=== PATIENT | male | born 1945 | race Caucasian/White ===

== ENCOUNTER 2016-10-07 17:24 | Emergency (ER) | payer MEDICARE, BC ==
--- NOTE | 2016-10-07 17:43 | Emergency Department Record ---
History of Present Illness - General Chief Complaint: Hypertension Stated Complaint: HIGH BLOOD PRESSURE Time Seen by Provider: 10/07/16 17:39 Source: Patient Mode of Arrival: Ambulatory Limitations: No limitations - History of Present Illness Initial Comments: The patient is here in the ER due to taking his BP tonight and finding it elevated. He has been having a nagging FISHER for the last couple of days and did take Tylenol for it. 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 Today the CP is no different and he did have a normal stress test per Dr. Moreau 3 weeks ago. He denies any visual changes, AP , back pain, GOMEZ or SOB. The patient is very nervous about his BP and is very focused on the number. MD Complaint: Other Onset/Timin -: Days(s) Timing: Unsure History of Same: No History of Trauma: No Improves With: Nothing Worsens With: Nothing Associated Symptoms: Denies other symptoms - Hewitt Coma Scale Eye Response: (4) Open spontaneously Motor Response: (6) Obeys commands Verbal Response: (5) Oriented Magdiel Total: 15 - Related Data Home Medications Medication Instructions Recorded Confirmed Last Taken Albuterol Sulfate 0.083% [Neb] 3 ml NEB .EVERY 4-6 HOURS PRN 07/21/14 10/07/16 10/07/16 Albuterol Sulfate [Proair Hfa] 1 - 2 inh IH Q6HR 07/21/14 10/07/16 10/07/16 Atorvastatin Calcium [Lipitor] 10 mg PO QHS 07/21/14 10/07/16 10/07/16 Diltiazem HCl [Diltiazem 12Hr ER] 180 mg PO BID 07/21/14 10/07/16 10/07/16 Levothyroxine Sodium [Synthroid] 100 mcg PO DAILY 07/21/14 10/07/16 10/07/16 Mometasone/Formoterol [Dulera 100 2 inh IH BID 07/21/14 10/07/16 10/07/16 Mcg/5 Mcg Inhaler] Montelukast Sodium [Singulair] 10 mg PO QHS 07/21/14 10/07/16 10/07/16 Tiotropium [place] [Spiriva] 18 mcg IH DAILY 05/10/15 10/07/16 10/07/16 Fluticasone Propionate [Flonase] 2 puff INH BID 01/02/16 10/07/16 10/07/16 Previous Rx's Medication Instructions Recorded Ipratropium/Albuterol [Duoneb] 3 ml IH Q4H PRN 30 Days 11/14/14 Lorazepam [Ativan] 0.5 mg PO Q12HR #10 tablet 10/07/16 Allergies Allergy/AdvReac Type Severity Reaction Status Date / Time No Known Drug Allergies Allergy Verified 10/07/16 17:27 Travel Screening - Travel/Exposure Within Last 30 Days Have you traveled within the last 30 days?: No - Travel/Exposure Within Last Year Have you traveled outside the [place] in the last year?: No - Additonal Travel Details Have you been exposed to anyone with a communicable illness?: No - Travel Symptoms Symptom Screening: None Review of Systems Constitutional: Denies: Chills, Fever Eyes: Denies: Eye discharge ENT: Denies: Congestion Respiratory: Denies: Cough, Dyspnea Past Medical History - SOCIAL HISTORY Smoking Status: Former smoker Alcohol Use: Occassional Drug Use: None - RESPIRATORY Hx Respiratory Disorders: Yes Hx Asthma: Yes Hx Bronchitis: Yes Hx COPD: Yes - CARDIOVASCULAR Hx Cardio Disorders: Yes Hx Hypertension: Yes Comment:: quad. bypass - NEURO Hx Neuro Disorders: No - GI Hx GI Disorders: Yes Hx Reflux: Yes Comment:: AAA - Hx Genitourinary Disorders: No - ENDOCRINE Hx Endocrine Disorders: Yes Hx Thyroid Disease: Yes (Hypothyroid) - MUSCULOSKELETAL Hx Musculoskeletal Disorders: No - PSYCH Hx Psych Problems: No - HEMATOLOGY/ONCOLOGY Hx Hematology/Oncology Disorders: No Family Medical History Any Significant Family History?: Yes Hx Heart Disease: Father Physical Exam - General General Appearance: Alert, Oriented x3, No acute distress - Head Head exam: Atraumatic, Normocephalic, Normal inspection - Eye Eye exam: Normal appearance, PERRL - ENT ENT exam: Normal exam Throat exam: Normal inspection. negative: Tonsillar erythema, Tonsillar exudate - Neck Neck exam: Normal inspection, Full ROM. negative: Tenderness - Respiratory Respiratory exam: Normal lung sounds bilaterally. negative: Respiratory distress - Cardiovascular Cardiovascular Exam: Regular rate, Normal rhythm, Normal heart sounds - GI/Abdominal GI/Abdominal exam: Soft, Normal bowel sounds, Other (Obese.). negative: Tenderness - Extremities Extremities exam: Normal inspection, Full ROM, Normal capillary refill. negative: Tenderness - Neurological Neurological exam: Alert, Normal gait. negative: Abnormal gait, Motor sensory deficit Course Vital Signs 10/07/16 17:32 Temperature 97.6 F Pulse Rate 82 Respiratory 20 Rate Blood Pressure 177/102 Pulse Ox 95 - Reevaluation(s) Reevaluation #1: The patient is doing much better now. His BP is 133/97 and he feels less anxious and has no FISHER. 10/07/16 18:29 Reevaluation #2: The patient is doing a lot better. His BP is much improved and is 135/87. He feels well and is ready for home. 10/07/16 18:48 Medical Decision Making - Data Complexity MDM Data: Labs Ordered and/or Reviewed, EKG Ordered and/or Reviewed - Lab Data Result diagrams: 10/07/16 18:05 10/07/16 18:05 - EKG Data -: EKG Interpreted by Me EKG: No Acute Changes, Unchanged From Previous Disposition Disposition: Discharge Clinical Impression: Anxiety Disposition: Home, Self-Care Condition: (1) Good Instructions: Hypertension (ED) Additional Instructions: Please continue your regular medicines. Please use the Ativan if needed. Please see your PCP next week for recheck and monitor your BP daily. Return to the ER for any problems. Prescriptions: Lorazepam [Ativan] 0.5 mg PO Q12HR #10 tablet Forms: Patient Portal Access Time of Disposition: 18:50
[2016-10-07] MEDS ORDERED: LORAZEPAM 0.5 MG TABLET PO ONE (17:50)
[2016-10-07] MEDS ORDERED: IBUPROFEN 400 MG TABLET PO ONE (17:50)
[2016-10-07 18:14] LABS: BASO % 0.4 % (0-6); EOS % 1.6 % (0-6); GRAN % 77.4 % (47-80); HEMATOCRIT 46.1 % (42.0-52.0); HEMOGLOBIN 15.4 gm/dl (14.0-18.0); LYMPH % 14.9 % (16-45); MEAN CELL VOLUME 89.3 fl (81-97); MEAN CORPUSCULAR HEMOGLOBIN 29.8 pg (27-33); MEAN CORPUSCULAR HGB CONC 33.4 g/dl (32-36); MONO % 5.7 % (0-9); PLATELET COUNT 272 K/uL (130-400); RED BLOOD COUNT 5.16 M/uL (4.40-5.70); RED CELL DISTRIBUTION WIDTH 14.8 % (11.5-14.5); WHITE BLOOD COUNT W/O DIFF 10.1 K/uL (4.2-12.2)
[2016-10-07 18:23] LABS: ANION GAP 10.8 (7-16); BLOOD UREA NITROGEN 18 mg/dL (9-20); CARBON DIOXIDE 23.2 mmol/L (22-30); CREATINE PHOSPHOKINASE 80 U/L (55-170); EST GLOMERULAR FILTRATION RATE > 60 ml/min; GLUCOSE,RANDOM 139 mg/dL (70-110)
[2016-10-07 18:36] LABS: CKMB 1.5 ug/L (0-6)
[2016-10-07 18:39] LABS: TROPONIN I < 0.012 ng/mL (0.00-0.034)
== END 2016-10-07 19:00 | disposition home or self-care (01) ==
LOC: ER 17:24
DX: R51 Headache (principal); I10 Essential (primary) hypertension; F41.9 Anxiety disorder, unspecified; Z87.891 Personal history of nicotine dependence
CPT/HCPCS: 80048; 82550; 82553; 84484; 85025; 93005; 93010; 99284

== ENCOUNTER 2016-11-06 15:34 | Emergency (ER) | payer MEDICARE, BC ==
--- NOTE | 2016-11-06 16:13 | Emergency Department Record ---
History of Present Illness - General Chief complaint: Extremity Problem Stated complaint: R LEG INJURY Time Seen by Provider: 11/06/16 16:07 Source: Patient, RN notes reviewed Mode of Arrival: Ambulatory - History of Present Illness Initial comments: laceration of the right lower leg. from a stick. Onset/Timin -: Minutes(s) Location: Right, Lower Leg History of Same: No Severity scale (1-10): 2 Quality: Sharp Improves with: Nothing Worsens with: Palpation Associated Symptoms: Denies other symptoms - Related Data Home Medications Medication Instructions Recorded Confirmed Last Taken Albuterol Sulfate 0.083% [Neb] 3 ml NEB .EVERY 4-6 HOURS PRN 07/21/14 11/06/16 11/06/16 Albuterol Sulfate [Proair Hfa] 1 - 2 inh IH Q6HR 07/21/14 11/06/16 11/06/16 Atorvastatin Calcium [Lipitor] 10 mg PO QHS 07/21/14 11/06/16 11/06/16 Diltiazem HCl [Diltiazem 12Hr ER] 180 mg PO BID 07/21/14 11/06/16 11/06/16 Levothyroxine Sodium [Synthroid] 100 mcg PO DAILY 07/21/14 11/06/16 11/06/16 Mometasone/Formoterol [Dulera 100 2 inh IH BID 07/21/14 11/06/16 11/06/16 Mcg/5 Mcg Inhaler] Montelukast Sodium [Singulair] 10 mg PO QHS 07/21/14 11/06/16 11/06/16 Tiotropium [place] [Spiriva] 18 mcg IH DAILY 05/10/15 11/06/16 11/06/16 Fluticasone Propionate [Flonase] 2 puff INH BID 01/02/16 11/06/16 11/06/16 Aspirin [Adult Low Dose Aspirin EC] 81 mg PO DAILY 11/06/16 11/06/16 11/06/16 Metoprolol Tartrate [Lopressor] 50 mg PO DAILY 11/06/16 11/06/16 11/06/16 Multivit-Mins/Iron/Folic/Lycop 1 tab PO DAILY 11/06/16 11/06/16 11/06/16 [Centrum Ultra Men's Tablet] Previous Rx's Medication Instructions Recorded Ipratropium/Albuterol [Duoneb] 3 ml IH Q4H PRN 30 Days 11/14/14 Cephalexin [Keflex] 500 mg PO QID #40 cap 11/06/16 Allergies Allergy/AdvReac Type Severity Reaction Status Date / Time No Known Drug Allergies Allergy Verified 11/06/16 15:55 Travel Screening - Travel/Exposure Within Last 30 Days Have you traveled within the last 30 days?: No - Travel/Exposure Within Last Year Have you traveled outside the [place] in the last year?: No - Additonal Travel Details Have you been exposed to anyone with a communicable illness?: No - Travel Symptoms Symptom Screening: None Review of Systems Reviewed: No additional complaints except as noted below Constitutional: Reports: As per HPI. Denies: Chills, Fever, Malaise, Night sweats, Weakness, Weight change Eyes: Reports: As per HPI. Denies: Eye discharge, Eye pain, Photophobia, Vision change ENT: Reports: As per HPI. Denies: Congestion, Dental pain, Ear pain, Epistaxis , Hearing loss, Throat pain Respiratory: Reports: As per HPI. Denies: Cough, Dyspnea, Hemoptysis, Stridor, Wheezes Cardiovascular: Reports: As per HPI. Denies: Arrhythmia, Chest pain, Dyspnea on exertion, Edema, Murmurs, Orthopnea, Palpitations, Paroxysmal nocturnal dyspnea, Rheumatic Fever, Syncope Endocrine: Reports: As per HPI. Denies: Fatigue, Heat or cold intolerance, Polydipsia, Polyuria Gastrointestinal: Reports: As per HPI. Denies: Abdominal pain, Constipation, Diarrhea, Hematemesis, Hematochezia, Melena, Nausea, Vomiting Genitourinary: Reports: As per HPI. Denies: Dysuria, Frequency, Hematuria, Incontinence, Retention, Testicular pain, Testicular mass, Urgency Musculoskeletal: Reports: As per HPI. Denies: Arthralgia, Back pain, Gout, Joint swelling, Myalgia, Neck pain Skin: Reports: As per HPI. Denies: Bruising, Change in color, Change in hair/ nails, Lesions, Pruritus, Rash Neurological: Reports: As per HPI. Denies: Abnormal gait, Confusion, Headache, Numbness, Paresthesias, Seizure, Tingling, Tremors, Vertigo, Weakness Psychiatric: Reports: As per HPI. Denies: Anxiety, Auditory hallucinations, Depression, Homicidal thoughts, Suicidal thoughts, Visual hallucinations Hematological/Lymphatic: Reports: As per HPI. Denies: Anemia, Blood Clots, Easy bleeding, Easy bruising, Swollen glands Past Medical History - SOCIAL HISTORY Smoking Status: Former smoker Alcohol Use: Rare Drug Use: None - RESPIRATORY Hx Respiratory Disorders: Yes Hx Asthma: Yes Hx Bronchitis: Yes Hx COPD: Yes - CARDIOVASCULAR Hx Cardio Disorders: Yes Hx Hypertension: Yes Comment:: quad. bypass - NEURO Hx Neuro Disorders: No - GI Hx GI Disorders: Yes Hx Reflux: Yes Comment:: AAA - Hx Genitourinary Disorders: No - ENDOCRINE Hx Endocrine Disorders: Yes Hx Thyroid Disease: Yes (Hypothyroid) - MUSCULOSKELETAL Hx Musculoskeletal Disorders: No - PSYCH Hx Psych Problems: No - HEMATOLOGY/ONCOLOGY Hx Hematology/Oncology Disorders: No Family Medical History Any Significant Family History?: Yes Hx Heart Disease: Father Physical Exam - General General Appearance: Alert, Oriented x3, Cooperative, No acute distress - Head Head exam: Normal inspection - Eye Eye exam: Normal appearance, PERRL Pupils: Normal accommodation - ENT ENT exam: Normal exam, Mucous membranes moist, Normal external ear exam, Normal orophraynx, TM's normal bilaterally Ear exam: Normal external inspection. negative: External canal tenderness Nasal Exam: Normal inspection. negative: Discharge, Sinus tenderness Mouth exam: Normal external inspection, Tongue normal Teeth exam: Normal inspection. negative: Dental caries Throat exam: Normal inspection. negative: Tonsillar erythema, Tonsillar exudate - Neck Neck exam: Normal inspection, Full ROM. negative: Tenderness - Respiratory Respiratory exam: Normal lung sounds bilaterally. negative: Respiratory distress - Cardiovascular Cardiovascular Exam: Regular rate, Normal rhythm, Normal heart sounds - GI/Abdominal GI/Abdominal exam: Soft, Normal bowel sounds. negative: Tenderness - Rectal Rectal exam: Deferred - exam: Deferred - Extremities Extremities exam: Normal inspection, Full ROM, Normal capillary refill. negative: Tenderness - Back Back exam: Reports: Normal inspection, Full ROM. Denies: Muscle spasm, Rash noted, Tenderness - Neurological Neurological exam: Alert, Normal gait, Oriented X3, Reflexes normal - Psychiatric Psychiatric exam: Normal affect, Normal mood - Skin Skin exam: Other (laceration v flap ) Course Vital Signs 11/06/16 15:59 Temperature 97.6 F Pulse Rate 56 L Respiratory 20 Rate Blood Pressure 160/87 Pulse Ox 98 - Reevaluation(s) Reevaluation #1: !% lidocaine and cleaned it with shurclens and irrigated it with saline. No FB seen. laceration closed with 4.0 ethilon times 6 sutures and laceration is 5 cm long 11/06/16 16:55 11/06/16 16:56 Disposition Clinical Impression: Laceration of leg Qualifiers: Encounter type: initial encounter Laterality: right Qualified Code(s): S81.811A - Laceration without foreign body, right lower leg, initial encounter Disposition: Home, Self-Care Condition: (1) Good Instructions: Laceration (ED) Additional Instructions: laceration check in three days by family Dr. or ED because this wound has a high chance of infection. sutures out in [address] or ED Prescriptions: Cephalexin [Keflex] 500 mg PO QID #40 cap Forms: Patient Portal Access Time of Disposition: 17:00 Quality - Quality Measures Quality Measures: N/A - Blood Pressure Screening Blood Pressure Classification: Pre-Hypertensive BP Reading Systolic Measurement: 160 Diastolic Measurement: 87 Screening for High Blood Pressure: Not Eligible for Measure [G8784] Not Eligible Reason: Active Diagnosis of Hypertension
== END 2016-11-06 17:10 | disposition home or self-care (01) ==
LOC: ER 15:34
DX: S81.811A Laceration without foreign body, right lower leg, initial encounter (principal); W22.8XXA Striking against or struck by other objects, initial encounter; I10 Essential (primary) hypertension; Z87.891 Personal history of nicotine dependence
CPT/HCPCS: 12002; 99283

== ENCOUNTER 2016-11-17 11:39 | Emergency (ER) | payer MEDICARE, BC ==
--- NOTE | 2016-11-17 12:15 | Emergency Department Record ---
History of Present Illness - General Chief Complaint: Suture removal Stated Complaint: STITCH REMOVAL Time Seen by Provider: 11/17/16 12:10 Source: Patient Mode of arrival: Ambulatory Limitations: No limitations - History of Present Illness MD Complaint: Suture/staple removal Onset/Timin -: Days(s) Initial Visit For: Laceration Returns Today for: Staple/stitch removal Symptoms Since Prior Visit: No new symptoms Associated Symptoms: None - Related Data Home Medications Medication Instructions Recorded Confirmed Last Taken Albuterol Sulfate 0.083% [Neb] 3 ml NEB .EVERY 4-6 HOURS PRN 07/21/14 11/17/16 11/16/16 Albuterol Sulfate [Proair Hfa] 1 - 2 inh IH Q6HR 07/21/14 11/17/16 11/16/16 Atorvastatin Calcium [Lipitor] 10 mg PO QHS 07/21/14 11/17/16 11/16/16 Diltiazem HCl [Diltiazem 12Hr ER] 180 mg PO BID 07/21/14 11/17/16 11/17/16 Levothyroxine Sodium [Synthroid] 100 mcg PO DAILY 07/21/14 11/17/16 11/17/16 Mometasone/Formoterol [Dulera 100 2 inh IH BID 07/21/14 11/17/16 11/17/16 Mcg/5 Mcg Inhaler] Montelukast Sodium [Singulair] 10 mg PO QHS 07/21/14 11/17/16 11/16/16 Tiotropium [place] [Spiriva] 18 mcg IH DAILY 05/10/15 11/17/16 11/16/16 Fluticasone Propionate [Flonase] 2 puff INH BID 01/02/16 11/17/16 11/16/16 Aspirin [Adult Low Dose Aspirin EC] 81 mg PO DAILY 11/06/16 11/17/16 11/16/16 Metoprolol Tartrate [Lopressor] 50 mg PO DAILY 11/06/16 11/17/16 11/17/16 Multivit-Mins/Iron/Folic/Lycop 1 tab PO DAILY 11/06/16 11/17/16 11/17/16 [Centrum Ultra Men's Tablet] Lisinopril [Zestril] 5 mg PO DAILY 11/17/16 11/17/16 11/16/16 Previous Rx's Medication Instructions Recorded Ipratropium/Albuterol [Duoneb] 3 ml IH Q4H PRN 30 Days 11/14/14 Cephalexin [Keflex] 500 mg PO QID #40 cap 11/06/16 Allergies Allergy/AdvReac Type Severity Reaction Status Date / Time No Known Drug Allergies Allergy Verified 11/06/16 15:55 Review of Systems Reviewed: No additional complaints except as noted below Constitutional: Reports: As per HPI. Denies: Chills, Fever, Malaise, Night sweats, Weakness, Weight change Eyes: Reports: As per HPI. Denies: Eye discharge, Eye pain, Photophobia, Vision change ENT: Reports: As per HPI. Denies: Congestion, Dental pain, Ear pain, Epistaxis , Hearing loss, Throat pain Respiratory: Reports: As per HPI. Denies: Cough, Dyspnea, Hemoptysis, Stridor, Wheezes Cardiovascular: Reports: As per HPI. Denies: Arrhythmia, Chest pain, Dyspnea on exertion, Edema, Murmurs, Orthopnea, Palpitations, Paroxysmal nocturnal dyspnea, Rheumatic Fever, Syncope Endocrine: Reports: As per HPI. Denies: Fatigue, Heat or cold intolerance, Polydipsia, Polyuria Gastrointestinal: Reports: As per HPI. Denies: Abdominal pain, Constipation, Diarrhea, Hematemesis, Hematochezia, Melena, Nausea, Vomiting Genitourinary: Reports: As per HPI. Denies: Dysuria, Frequency, Hematuria, Incontinence, Retention, Testicular pain, Testicular mass, Urgency Musculoskeletal: Reports: As per HPI. Denies: Arthralgia, Back pain, Gout, Joint swelling, Myalgia, Neck pain Skin: Reports: As per HPI. Denies: Bruising, Change in color, Change in hair/ nails, Lesions, Pruritus, Rash Neurological: Reports: As per HPI. Denies: Abnormal gait, Confusion, Headache, Numbness, Paresthesias, Seizure, Tingling, Tremors, Vertigo, Weakness Psychiatric: Reports: As per HPI. Denies: Anxiety, Auditory hallucinations, Depression, Homicidal thoughts, Suicidal thoughts, Visual hallucinations Hematological/Lymphatic: Reports: As per HPI. Denies: Anemia, Blood Clots, Easy bleeding, Easy bruising, Swollen glands Past Medical History - SOCIAL HISTORY Smoking Status: Former smoker Drug Use: None - RESPIRATORY Hx Respiratory Disorders: Yes Hx Asthma: Yes Hx Bronchitis: Yes Hx COPD: Yes - CARDIOVASCULAR Hx Cardio Disorders: Yes Hx Hypertension: Yes Comment:: quad. bypass - NEURO Hx Neuro Disorders: No - GI Hx GI Disorders: Yes Hx Reflux: Yes Comment:: AAA - Hx Genitourinary Disorders: No - ENDOCRINE Hx Endocrine Disorders: Yes Hx Thyroid Disease: Yes (Hypothyroid) - MUSCULOSKELETAL Hx Musculoskeletal Disorders: No - PSYCH Hx Psych Problems: No - HEMATOLOGY/ONCOLOGY Hx Hematology/Oncology Disorders: No Family Medical History Hx Heart Disease: Father Physical Exam - General General Appearance: Alert, Oriented x3, Cooperative, Mild distress - Head Head exam: Normal inspection - Eye Eye exam: Normal appearance, PERRL, EOMI Pupils: Normal accommodation - ENT ENT exam: Normal exam, Mucous membranes moist, Normal external ear exam, Normal orophraynx Ear exam: Normal external inspection. negative: External canal tenderness Nasal Exam: Normal inspection. negative: Discharge, Sinus tenderness Mouth exam: Normal external inspection, Tongue normal Teeth exam: Normal inspection. negative: Dental caries Throat exam: Normal inspection. negative: Tonsillar erythema, Tonsillar exudate - Neck Neck exam: Normal inspection, Full ROM. negative: Tenderness - Respiratory Respiratory exam: Normal lung sounds bilaterally. negative: Respiratory distress - Cardiovascular Cardiovascular Exam: Regular rate, Normal rhythm, Normal heart sounds - GI/Abdominal GI/Abdominal exam: Soft, Normal bowel sounds. negative: Tenderness - Rectal Rectal exam: Deferred - exam: Deferred - Extremities Extremities exam: Normal inspection, Full ROM, Normal capillary refill. negative: Tenderness - Back Back exam: Reports: Normal inspection, Full ROM. Denies: Muscle spasm, Rash noted, Tenderness - Neurological Neurological exam: Alert, CN II-XII intact, Normal gait, Oriented X3 - Psychiatric Psychiatric exam: Normal affect, Normal mood - Skin Skin exam: Dry, Intact, Normal color, Warm Type of lesion: Laceration Distribution of rash: RLE Disposition Disposition: Discharge Clinical Impression: Visit for suture removal Disposition: Home, Self-Care Condition: (1) Good Instructions: Stitches Removal (ED) Additional Instructions: follow up with family doctor. return sooner if worse Forms: Patient Portal Access Quality - Quality Measures Quality Measures: N/A - Blood Pressure Screening Blood Pressure Classification: Pre-Hypertensive BP Reading Systolic Measurement: 131 Diastolic Measurement: 71 Screening for High Blood Pressure: < Normal BP, F/U Not Required > [G8783] Normal BP Follow-up Interventions: No follow-up required
== END 2016-11-17 13:20 | disposition home or self-care (01) ==
LOC: ER 11:39
DX: Z48.02 Encounter for removal of sutures (principal)

== ENCOUNTER 2017-01-23 06:22 | Emergency (ER) | payer MEDICARE, BC ==
--- NOTE | 2017-01-23 06:47 | Emergency Department Record ---
History of Present Illness - General Source: Patient Mode of Arrival: Ambulatory Limitations: No limitations - History of Present Illness Initial comments: 71 yo male presents with left side pain. The onset was on Sunday. The onset was gradual over the left flank. The pain improved by Sunday but did not resolve. The pain over the last day has increased again. No fevers or chills. No rash over the left side. No nausea, vomiting or diarrhea. No changes in bowel or bladder function. No hemturia. He denies any history of renal stones. PCP Segun [place]. He has a history of CAD with CABG and history of AAA. MD Complaint: Other (Left flank pain) Onset/Timin -: Days(s) Location: Left flank, Left inguinal region Radiation: LLQ Severity: Moderate Quality: Stabbing Consistency: Constant Improves with: None Worsens with: None Other Reports: Denies other symptoms - Related Data Sexually active: No <SANDRO DOUGLASS - Last Filed: 01/23/17 07:03> <Jocy Lindsay - Last Filed: 01/23/17 09:05> - General Chief complaint: Male Urogenital Problem Stated complaint: UTI Time Seen by Provider: 01/23/17 06:35 - Related Data Previous Rx's Medication Instructions Recorded Hydrocodone/Acetaminophen [[place] 1 each PO Q6HR #14 tablet 01/23/17 5-325 Tablet] Allergies Allergy/AdvReac Type Severity Reaction Status Date / Time No Known Drug Allergies Allergy Verified 11/06/16 15:55 Travel Screening - Travel/Exposure Within Last 30 Days Have you traveled within the last 30 days?: No - Travel Symptoms Symptom Screening: None <SANDRO DOUGLASS - Last Filed: 01/23/17 07:03> Review of Systems Constitutional: Denies: Chills, Fever, Malaise, Weakness Eyes: Denies: Eye discharge ENT: Denies: Congestion, Throat pain Respiratory: Denies: Cough, Dyspnea, Hemoptysis, Stridor, Wheezes Cardiovascular: Denies: Chest pain, Syncope Endocrine: Denies: Fatigue Gastrointestinal: Reports: As per HPI, Abdominal pain. Denies: Diarrhea, Nausea , Vomiting Genitourinary: Reports: Frequency. Denies: Dysuria, Hematuria, Incontinence, Retention, Urgency Musculoskeletal: Reports: As per HPI, Back pain. Denies: Arthralgia Skin: Denies: Bruising, Change in color, Rash Neurological: Denies: Headache, Numbness, Weakness Psychiatric: Denies: Anxiety Hematological/Lymphatic: Denies: Blood Clots, Easy bleeding, Easy bruising, Swollen glands <SANDRO DOUGLASS - Last Filed: 01/23/17 07:03> Past Medical History - SOCIAL HISTORY Smoking Status: Former smoker Alcohol Use: None Drug Use: None - RESPIRATORY Hx Respiratory Disorders: Yes Hx Asthma: Yes Hx Bronchitis: Yes Hx COPD: Yes - CARDIOVASCULAR Hx Cardio Disorders: Yes Hx Hypertension: Yes Comment:: quad. bypass - NEURO Hx Neuro Disorders: No - GI Hx GI Disorders: Yes Hx Reflux: Yes Comment:: AAA - Hx Genitourinary Disorders: No - ENDOCRINE Hx Endocrine Disorders: Yes Hx Thyroid Disease: Yes (Hypothyroid) - MUSCULOSKELETAL Hx Musculoskeletal Disorders: No - PSYCH Hx Psych Problems: No - HEMATOLOGY/ONCOLOGY Hx Hematology/Oncology Disorders: No <SANDRO DOUGLASS - Last Filed: 01/23/17 07:03> Family Medical History Any Significant Family History?: Yes Hx Heart Disease: Father <SANDRO DOUGLASS - Last Filed: 01/23/17 07:03> Physical Exam - General General Appearance: Alert, Oriented x3, Cooperative, No acute distress Limitations: No limitations - Head Head exam: Atraumatic, Normocephalic, Normal inspection - Eye Eye exam: Normal appearance. negative: Conjunctival injection - ENT ENT exam: Normal exam, Mucous membranes moist Ear exam: Normal external inspection Nasal Exam: Normal inspection - Neck Neck exam: Normal inspection - Respiratory Respiratory exam: Normal lung sounds bilaterally. negative: Respiratory distress - Cardiovascular Cardiovascular Exam: Regular rate, Normal rhythm, Normal heart sounds - GI/Abdominal GI/Abdominal exam: Soft. negative: Distended, Guarding, Rebound, Rigid, Tenderness - Rectal Rectal exam: Deferred - exam: Deferred - Extremities Extremities exam: Normal inspection, Full ROM, Normal capillary refill. negative: Pedal edema, Tenderness - Back Back exam: Reports: Normal inspection, CVA tenderness (L) (mild), Full ROM. Denies: CVA tenderness (R), Rash noted - Neurological Neurological exam: Alert, Oriented X3 - Psychiatric Psychiatric exam: Normal affect, Normal mood - Skin Skin exam: Dry, Intact, Normal color, Warm. negative: Rash <SANDRO DOUGLASS - Last Filed: 01/23/17 07:03> Course Vital Signs 01/23/17 06:28 Temperature 97.7 F Pulse Rate [ 69 Pulse Ox Probe] Respiratory 20 Rate Blood Pressure 190/110 [Left Arm] Pulse Ox 94 L - Reevaluation(s) Reevaluation #1: 01/23/17 07:04 The case was signed out to Dr Lindsay Please refer to her her documentation for medical decision making, labs and disposition <SANDRO DOUGLASS - Last Filed: 01/23/17 07:03> Vital Signs 01/23/17 01/23/17 06:28 08:11 Temperature 97.7 F Pulse Rate [ 69 63 Pulse Ox Probe] Respiratory 20 16 Rate Blood Pressure 190/110 145/90 [Left Arm] Pulse Ox 94 L 94 L <Jocy Lindsay - Last Filed: 01/23/17 09:05> Medical Decision Making - Lab Data Result diagrams: 01/23/17 06:55 01/23/17 06:55 <SANDRO DOUGLASS - Last Filed: 01/23/17 07:03> - Lab Data Result diagrams: 01/23/17 06:55 01/23/17 06:55 Lab Results 01/23/17 01/23/17 01/23/17 Range/Units 06:55 06:55 07:45 WBC 13.7 H (4.2-12.2) K/uL RBC 5.22 (4.40-5.70) M/uL Hgb 15.9 (14.0-18.0) gm/dl Hct 47.4 (42.0-52.0) % MCV 90.8 (81-97) fl MCH 30.5 (27-33) pg MCHC 33.5 (32-36) g/dl RDW 14.0 (11.5-14.5) % Plt Count 250 (130-400) K/uL MPV 10.3 (7.4-10.4) fl Neutrophils % 86.0 H (47-80) % Band Neutrophils % 2.0 (0-5) % Eosinophils % Not Reportable Basophils % Not Reportable Lymphocytes 8.0 L (16-45) % Monocytes 4.0 (0-9) % Platelet Estimate Normal (NORMAL) RBC Morphology Normal Sodium 134 L (136-145) mmol/L Potassium 4.3 (3.4-4.5) mmol/L Chloride 96 L (98-107) mmol/L Carbon Dioxide 25.0 (22-29) mmol/L Anion Gap 13.0 (7-16) BUN 22 (8-23) mg/dL Creatinine 1.7 H (0.7-1.2) mg/dL Estimated GFR 42 mL/min Random Glucose 121 H (74-109) mg/dL Calcium 9.3 (8.8-10.2) mg/dL Urine Color Yellow Urine Appearance Clear Urine pH 6.0 (5.0-8.0) Ur Specific [place] 1.020 (1.002-1.030) Urine Protein Negative (NEGATIVE) Urine Glucose (UA) Negative (NEGATIVE) Urine Ketones Negative (NEGATIVE) Urine Blood Small H (NEGATIVE) Urine Nitrite Negative (NEGATIVE) Urine Bilirubin Negative (NEGATIVE) Urine Urobilinogen 0.2 (0.20 - 1.00) E.U./dL Ur Leukocyte Esterase Negative (NEGATIVE) Urine RBC 10 - 15 (NONE SEEN) Urine WBC 0 - 2 (0-2/hpf) Ur Epithelial Cells 0 - 2 (FEW) Urine Bacteria None seen <Jocy Lindsay - Last Filed: 01/23/17 09:05> Disposition <SANDRO DOUGLASS - Last Filed: 01/23/17 07:03> Disposition: Discharge <Jocy Lindsay - Last Filed: 01/23/17 09:05> Clinical Impression: Renal lithiasis, AAA (abdominal aortic aneurysm) without rupture Hydronephrosis Qualifiers: Hydronephrosis type: with ureteral calculous obstruction Qualified Code(s): N13.2 - Hydronephrosis with renal and ureteral calculous obstruction Disposition: Home, Self-Care Condition: (1) Good Instructions: Kidney Stones (ED) Additional Instructions: follow up with family doctor regarding aortic aneurysm and with dr thomas regarding kidney stone. return sooner if worse. push fluids Prescriptions: Hydrocodone/Acetaminophen [[place] 5-325 Tablet] 1 each PO Q6HR #14 tablet Referrals: MARGIE AYOUB M.D. [MEDICAL DOCTOR] - [facility] [place] [facility] [Provider Group] Forms: Patient Portal Access Quality - Blood Pressure Screening Does Patient Have Any of the Following: No Blood Pressure Classification: Hypertensive Reading Systolic Measurement: 190 Diastolic Measurement: 110 <SANDRO DOUGLASS - Last Filed: 01/23/17 07:03> - Quality Measures Quality Measures: N/A - Blood Pressure Screening Does Patient Have Any of the Following: No Blood Pressure Classification: Hypertensive Reading Systolic Measurement: 145 Diastolic Measurement: 90 Screening for High Blood Pressure: < Pre-Hypertensive BP, F/U Documented > [ G8950] Pre-Hypertensive Follow-up Interventions: Follow-up with rescreen every year. <Jocy Lindsay - Last Filed: 01/23/17 09:05>
[2017-01-23 07:01] LABS: HEMATOCRIT 47.4 % (42.0-52.0); HEMOGLOBIN 15.9 gm/dl (14.0-18.0); MEAN CELL VOLUME 90.8 fl (81-97); MEAN CORPUSCULAR HEMOGLOBIN 30.5 pg (27-33); MEAN CORPUSCULAR HGB CONC 33.5 g/dl (32-36); MEAN PLATELET VOLUME 10.3 fl (7.4-10.4); PLATELET COUNT 250 K/uL (130-400); RED BLOOD COUNT 5.22 M/uL (4.40-5.70); WHITE BLOOD COUNT W/O DIFF 13.7 K/uL (4.2-12.2)
[2017-01-23] MEDS: MORPHINE SULFATE 5 MG/ML PFS IVP ONE (07:03)
[2017-01-23] MEDS: SODIUM CHLORIDE 0.9% 500 ML IV ONE (07:05)
[2017-01-23 07:11] LABS: PLATELET ESTIMATE NORMAL (NORMAL)
[2017-01-23 07:16] LABS: CREATININE 1.7 mg/dL (0.7-1.2)
[2017-01-23 07:55] LABS: URINE APPEARANCE CLEAR; URINE BILIRUBIN NEGATIVE (NEGATIVE); URINE BLOOD SMALL (NEGATIVE); URINE COLOR YELLOW; URINE GLUCOSE (UA) NEGATIVE (NEGATIVE); URINE KETONE NEGATIVE (NEGATIVE); URINE LEUKOCYTE ESTERASE NEGATIVE (NEGATIVE); URINE NITRITE NEGATIVE (NEGATIVE); URINE PROTEIN NEGATIVE (NEGATIVE); URINE UROBILINOGEN 0.2 E.U./dL (0.20 - 1.00)
[2017-01-23 08:07] LABS: URINE BACTERIA NONE SEEN; URINE EPITHELIAL CELLS 0 - 2 (FEW); URINE WBC 0 - 2 (0-2/hpf)
--- NOTE | 2017-01-23 09:23 | Emergency Department Record ---
History of Present Illness - General Chief complaint: Male Urogenital Problem Stated complaint: UTI Time Seen by Provider: 01/23/17 06:35 Source: Patient Mode of Arrival: Ambulatory Limitations: No limitations - History of Present Illness Onset/Timin -: Days(s) Location: Left flank, Left inguinal region Radiation: LLQ Severity: Moderate Quality: Stabbing Consistency: Constant Improves with: None Worsens with: None Other Reports: Denies other symptoms - Related Data Sexually active: No Previous Rx's Medication Instructions Recorded Hydrocodone/Acetaminophen [[place] 1 each PO Q6HR #14 tablet 01/23/17 5-325 Tablet] Tamsulosin HCl [Flomax] 0.4 mg PO DAILY #7 cap.er.24h 01/23/17 Allergies Allergy/AdvReac Type Severity Reaction Status Date / Time No Known Drug Allergies Allergy Verified 11/06/16 15:55 Travel Screening - Travel/Exposure Within Last 30 Days Have you traveled within the last 30 days?: No - Travel Symptoms Symptom Screening: None Review of Systems Constitutional: Denies: Chills, Fever, Malaise, Weakness Eyes: Denies: Eye discharge ENT: Denies: Congestion, Throat pain Respiratory: Denies: Cough, Dyspnea, Hemoptysis, Stridor, Wheezes Cardiovascular: Denies: Chest pain, Syncope Endocrine: Denies: Fatigue Gastrointestinal: Reports: As per HPI, Abdominal pain. Denies: Diarrhea, Nausea , Vomiting Genitourinary: Reports: Frequency. Denies: Dysuria, Hematuria, Incontinence, Retention, Urgency Musculoskeletal: Reports: As per HPI, Back pain. Denies: Arthralgia Skin: Denies: Bruising, Change in color, Rash Neurological: Denies: Headache, Numbness, Weakness Psychiatric: Denies: Anxiety Hematological/Lymphatic: Denies: Blood Clots, Easy bleeding, Easy bruising, Swollen glands Past Medical History - SOCIAL HISTORY Smoking Status: Former smoker Alcohol Use: None Drug Use: None - RESPIRATORY Hx Respiratory Disorders: Yes Hx Asthma: Yes Hx Bronchitis: Yes Hx COPD: Yes - CARDIOVASCULAR Hx Cardio Disorders: Yes Hx Hypertension: Yes Comment:: quad. bypass - NEURO Hx Neuro Disorders: No - GI Hx GI Disorders: Yes Hx Reflux: Yes Comment:: AAA - Hx Genitourinary Disorders: No - ENDOCRINE Hx Endocrine Disorders: Yes Hx Thyroid Disease: Yes (Hypothyroid) - MUSCULOSKELETAL Hx Musculoskeletal Disorders: No - PSYCH Hx Psych Problems: No - HEMATOLOGY/ONCOLOGY Hx Hematology/Oncology Disorders: No Family Medical History Any Significant Family History?: Yes Hx Heart Disease: Father Physical Exam - General Limitations: No limitations Course Vital Signs 01/23/17 01/23/17 01/23/17 06:28 08:11 09:20 Temperature 97.7 F Pulse Rate 62 Pulse Rate [ 69 63 Pulse Ox Probe] Respiratory 20 16 18 Rate Blood Pressure 148/91 Blood Pressure 190/110 145/90 [Left Arm] Pulse Ox 94 L 94 L 95 Medical Decision Making - Lab Data Result diagrams: 01/23/17 06:55 01/23/17 06:55 Lab Results 01/23/17 01/23/17 01/23/17 Range/Units 06:55 06:55 07:45 WBC 13.7 H (4.2-12.2) K/uL RBC 5.22 (4.40-5.70) M/uL Hgb 15.9 (14.0-18.0) gm/dl Hct 47.4 (42.0-52.0) % MCV 90.8 (81-97) fl MCH 30.5 (27-33) pg MCHC 33.5 (32-36) g/dl RDW 14.0 (11.5-14.5) % Plt Count 250 (130-400) K/uL MPV 10.3 (7.4-10.4) fl Neutrophils % 86.0 H (47-80) % Band Neutrophils % 2.0 (0-5) % Eosinophils % Not Reportable Basophils % Not Reportable Lymphocytes 8.0 L (16-45) % Monocytes 4.0 (0-9) % Platelet Estimate Normal (NORMAL) RBC Morphology Normal Sodium 134 L (136-145) mmol/L Potassium 4.3 (3.4-4.5) mmol/L Chloride 96 L (98-107) mmol/L Carbon Dioxide 25.0 (22-29) mmol/L Anion Gap 13.0 (7-16) BUN 22 (8-23) mg/dL Creatinine 1.7 H (0.7-1.2) mg/dL Estimated GFR 42 mL/min Random Glucose 121 H (74-109) mg/dL Calcium 9.3 (8.8-10.2) mg/dL Urine Color Yellow Urine Appearance Clear Urine pH 6.0 (5.0-8.0) Ur Specific [place] 1.020 (1.002-1.030) Urine Protein Negative (NEGATIVE) Urine Glucose (UA) Negative (NEGATIVE) Urine Ketones Negative (NEGATIVE) Urine Blood Small H (NEGATIVE) Urine Nitrite Negative (NEGATIVE) Urine Bilirubin Negative (NEGATIVE) Urine Urobilinogen 0.2 (0.20 - 1.00) E.U./dL Ur Leukocyte Esterase Negative (NEGATIVE) Urine RBC 10 - 15 (NONE SEEN) Urine WBC 0 - 2 (0-2/hpf) Ur Epithelial Cells 0 - 2 (FEW) Urine Bacteria None seen Disposition Clinical Impression: Renal lithiasis, AAA (abdominal aortic aneurysm) without rupture Hydronephrosis Qualifiers: Hydronephrosis type: with ureteral calculous obstruction Qualified Code(s): N13.2 - Hydronephrosis with renal and ureteral calculous obstruction Disposition: Home, Self-Care Condition: (1) Good Instructions: Kidney Stones (ED) Additional Instructions: follow up with family doctor regarding aortic aneurysm and with dr thomas regarding kidney stone. return sooner if worse. push fluids Prescriptions: Hydrocodone/Acetaminophen [[place] 5-325 Tablet] 1 each PO Q6HR #14 tablet Tamsulosin HCl [Flomax] 0.4 mg PO DAILY #7 cap.er.24h Referrals: [facility] [Provider Group] MARGIE AYOUB M.D. [MEDICAL DOCTOR] - Forms: Patient Portal Access Quality - Quality Measures Quality Measures: N/A - Blood Pressure Screening Does Patient Have Any of the Following: No Blood Pressure Classification: Hypertensive Reading Systolic Measurement: 148 Diastolic Measurement: 91 Screening for High Blood Pressure: < First Hypertensive BP, F/U Documented > [ G8950] First Hypertensive Follow-up Interventions: Follow-up with rescreen GT 1 day and LT 4 weeks.
--- NOTE | 2017-01-24 12:39 | CT SCAN REPORT ---
EXAM: CT OF THE ABDOMEN AND PELVIS HISTORY: LEFT FLANK PAIN WITH DYSURIA FOR TWO DAYS. PRIOR ABDOMINAL AORTIC ANEURYSM SURGERY. TECHNIQUE: Axial CT scan of the abdomen and pelvis was performed without oral or IV contrast. Comparison: No prior CT abdomen and pelvis with which to compare. FINDINGS: There are bilateral intrarenal calcifications consistent with small bilateral currently nonobstructing intrarenal calculi. No hydronephrosis or hydroureter on the right, however, on the left there is mild hydronephrosis and mild dilatation of the upper left ureter leading to a small calcification in the left ureter at the approximate L4 level consistent with a mid ureteral calculus causing a component of obstruction on the left. This small ureteral calculus on the left measures about 3.3 mm in diameter and about 4 mm in length. Distal to this the left ureter is nondilated with no additional more distal left ureteral calculus seen and no bladder calculus evident. There is probably a small bladder diverticulum posteriorly which contain a small calcification as well. The prostate is mildly enlarged measuring about 4.8 cm in transverse x 4.3 cm in AP diameter and contains some calcification. No calcified gallstones are seen within the gallbladder. Evaluation of the bowel and viscera are very limited without oral or IV contrast. Given this limitation, no definite focal hepatic mass evident. There is some diffuse fatty infiltration of the liver. No definite splenic, adrenal, or pancreatic mass evident. There are probably a couple small left renal cysts although incompletely evaluated on this noncontrast CT. At least one small left renal cyst was noted on a prior abdomen ultrasound of 08/22/13 as well. This probably corresponds to the largest of the three small low attenuation foci in the left kidney seen today. These could be further evaluated with a follow-up MRI of the abdomen if not contraindicated. Small hiatal hernia. Infrarenal abdominal aortic aneurysm measuring about 4.7 cm in AP x 4.2 cm in transverse diameters. Mild diverticulosis sigmoid colon, but no diverticulitis evident. The appendix is visualized and appears negative. Small periumbilical anterior abdominal wall hernia containing adipose tissue, but no bowel. No free intraperitoneal air or free intraperitoneal fluid evident. Prominent facet joint arthropathy in the lower lumbar spine and prominent spurring in the lower thoracic spine. IMPRESSION: 1. APPEARANCE CONSISTENT WITH A SMALL LEFT MID URETERAL CALCULUS CAUSING A COMPONENT OF OBSTRUCTION ON THE LEFT. 2. THERE ARE ADDITIONAL BILATERAL CURRENTLY NONOBSTRUCTING INTRARENAL CALCULI. THERE IS PROBABLY A SMALL BLADDER DIVERTICULUM WHICH MAY CONTAIN A SMALL BLADDER CALCULUS WELL. 3. MILDLY ENLARGED PROSTATE. 4. DIFFUSE FATTY INFILTRATION OF THE LIVER. 5. SMALL HIATAL HERNIA AND ALSO A SMALL PERIUMBILICAL ANTERIOR ABDOMINAL WALL HERNIA WHICH CONTAINS ADIPOSE TISSUE, BUT NO BOWEL. 6. INFRARENAL ABDOMINAL AORTIC ANEURYSM MEASURING APPROXIMATELY 4.7 X 4.2 CM IN DIAMETER. 7. MULTIPLE SMALL LEFT RENAL MASSES ARE PRESUMABLY ALL CYSTS ALTHOUGH INCOMPLETELY EVALUATED ON THIS NONCONTRAST CT. 8. DEGENERATIVE CHANGE IN THE SPINE. 9. SIGMOID DIVERTICULOSIS, BUT NO DIVERTICULITIS EVIDENT. JOB NUMBER: [id number] [facility]
== END 2017-01-23 09:21 | disposition home or self-care (01) ==
LOC: ER 06:22
DX: N13.2 Hydronephrosis with renal and ureteral calculous obstruction (principal); I71.4 Abdominal aortic aneurysm, without rupture; I25.10 Atherosclerotic heart disease of native coronary artery without angina pectoris; I10 Essential (primary) hypertension; Z95.1 Presence of aortocoronary bypass graft; Z87.891 Personal history of nicotine dependence; J44.9 Chronic obstructive pulmonary disease, unspecified
CPT/HCPCS: 99284 ×2; 99285 ×2; 96374; 80048; 81001; 85027; 74176; J2270

== ENCOUNTER 2017-01-23 21:22 | Emergency (ER) | payer MEDICARE, BC ==
[2017-01-23 21:52] LABS: URINE APPEARANCE CLEAR; URINE BILIRUBIN NEGATIVE (NEGATIVE); URINE BLOOD LARGE (NEGATIVE); URINE COLOR YELLOW; URINE GLUCOSE (UA) NEGATIVE (NEGATIVE); URINE KETONE NEGATIVE (NEGATIVE); URINE LEUKOCYTE ESTERASE NEGATIVE (NEGATIVE); URINE NITRITE NEGATIVE (NEGATIVE); URINE PROTEIN TRACE (NEGATIVE); URINE UROBILINOGEN 0.2 E.U./dL (0.20 - 1.00)
[2017-01-23 22:01] LABS: URINE BACTERIA NONE SEEN; URINE EPITHELIAL CELLS NONE SEEN (FEW); URINE RBC 16 - 25 (NONE SEEN); URINE WBC NONE SEEN (0-2/hpf)
--- NOTE | 2017-01-23 22:04 | Emergency Department Record ---
History of Present Illness - General Chief complaint: Male Urogenital Problem Stated complaint: KIDNEY STONE PAIN, ASTHEMA Time Seen by Provider: 01/23/17 21:25 Source: Patient Mode of Arrival: Ambulatory Limitations: No limitations - History of Present Illness Initial comments: 71 yo male returns to ED for worsening left flank pain symptoms after being diagnosed with a 4x3 mm kidney stone this morning. Patient reports that he has been taking [place] as directed which does help somewhat, however his pain symptoms have continued to worsen despite the analgesic tonight. Patient denies fevers, chills, or urinary symptoms throughout the day. Onset/Timin -: Days(s) Location: Left flank Radiation: L flank Severity: Moderate Quality: Stabbing Consistency: Intermittent Improves with: Other Worsens with: Movement New medication - Related Data Sexually active: No Previous Rx's Medication Instructions Recorded Hydrocodone/Acetaminophen [[place] 1 each PO Q6HR #14 tablet 01/23/17 5-325 Tablet] Tamsulosin HCl [Flomax] 0.4 mg PO DAILY #7 cap.er.24h 01/23/17 Allergies Allergy/AdvReac Type Severity Reaction Status Date / Time No Known Drug Allergies Allergy Verified 11/06/16 15:55 Travel Screening - Travel/Exposure Within Last 30 Days Have you traveled within the last 30 days?: No - Travel Symptoms Symptom Screening: None Review of Systems Constitutional: Denies: Chills, Fever, Malaise, Night sweats Eyes: Denies: Eye discharge, Eye pain ENT: Denies: Congestion, Ear pain, Epistaxis Respiratory: Denies: Cough, Dyspnea Cardiovascular: Denies: Chest pain, Dyspnea on exertion Endocrine: Denies: Fatigue, Heat or cold intolerance Gastrointestinal: Denies: Abdominal pain, Constipation, Nausea, Vomiting Genitourinary: Denies: Incontinence, Retention Musculoskeletal: Reports: Back pain (left sided flank pain). Denies: Arthralgia Skin: Denies: Bruising, Change in color Neurological: Denies: Abnormal gait, Confusion, Headache, Seizure Psychiatric: Denies: Anxiety Hematological/Lymphatic: Denies: Anemia, Blood Clots Past Medical History - SOCIAL HISTORY Smoking Status: Former smoker Alcohol Use: None Drug Use: None - RESPIRATORY Hx Respiratory Disorders: Yes Hx Asthma: Yes Hx Bronchitis: Yes Hx COPD: Yes - CARDIOVASCULAR Hx Cardio Disorders: Yes Hx Hypertension: Yes Comment:: quad. bypass - NEURO Hx Neuro Disorders: No - GI Hx GI Disorders: Yes Hx Reflux: Yes Comment:: AAA - Hx Genitourinary Disorders: No - ENDOCRINE Hx Endocrine Disorders: Yes Hx Thyroid Disease: Yes (Hypothyroid) - MUSCULOSKELETAL Hx Musculoskeletal Disorders: No - PSYCH Hx Psych Problems: No - HEMATOLOGY/ONCOLOGY Hx Hematology/Oncology Disorders: No Family Medical History Any Significant Family History?: Yes Hx Heart Disease: Father Physical Exam - General General Appearance: Alert, Oriented x3, Cooperative, Moderate distress Limitations: No limitations - Head Head exam: Atraumatic, Normocephalic, Normal inspection Head exam detail: negative: Abrasion, Contusion, Clark's sign, General tenderness, Hematoma, Laceration - Eye Eye exam: Other (pinpoint pupils on examination). negative: Conjunctival injection, Periorbital swelling, Periorbital tenderness, Scleral icterus - ENT Ear exam: negative: Auricular hematoma, Auricular trauma Nasal Exam: negative: Active bleeding, Discharge, Dried blood, Foreign body Mouth exam: negative: Drooling, Laceration, Muffled voice, Tongue elevation - Neck Neck exam: Normal inspection. negative: Meningismus, Tenderness - Respiratory Respiratory exam: Normal lung sounds bilaterally. negative: Rales, Respiratory distress, Rhonchi, Stridor - Cardiovascular Cardiovascular Exam: Regular rate, Normal rhythm, Normal heart sounds - GI/Abdominal GI/Abdominal exam: Soft. negative: Rebound, Rigid, Tenderness - Rectal Rectal exam: Deferred - exam: Deferred - Extremities Extremities exam: Normal inspection. negative: Pedal edema, Tenderness - Back Back exam: Reports: CVA tenderness (L). Denies: CVA tenderness (R) - Neurological Neurological exam: Alert, Normal gait, Oriented X3 - Psychiatric Psychiatric exam: Normal affect, Normal mood - Skin Skin exam: Normal color. negative: Abrasion Type of lesion: negative: abrasion Course Vital Signs 01/23/17 21:32 Temperature 97.6 F Pulse Rate [ 73 Pulse Ox Probe] Respiratory 20 Rate Blood Pressure 181/102 [Right Arm] Pulse Ox 95 - Reevaluation(s) Reevaluation #1: 01/23/17 22:01 CT Abdomen and Pelvis 01/23/17 this morninx3 mm calculus left mid-ureter with mild hydronephrosis. Reevaluation #2: 01/23/17 22:04 Labs reviewed from earlier today, WBC 13.7 with 85% neutrophils, BUN 22/ Creatinine 1.7 (baseline 1.0). UA reviewed demonstrates 16-25 RBCs, no sign of infection. Case was discussed with Dr. Dodge ([facility]), will accept transfer for further evaluation and admission with urology consultation. Medical Decision Making - Lab Data Lab Results 01/23/17 Range/Units 21:53 Urine Color Yellow Urine Appearance Clear Urine pH 6.0 (5.0-8.0) Ur Specific [place] 1.020 (1.002-1.030) Urine Protein Trace H (NEGATIVE) Urine Glucose (UA) Negative (NEGATIVE) Urine Ketones Negative (NEGATIVE) Urine Blood Large H (NEGATIVE) Urine Nitrite Negative (NEGATIVE) Urine Bilirubin Negative (NEGATIVE) Urine Urobilinogen 0.2 (0.20 - 1.00) E.U./dL Ur Leukocyte Esterase Negative (NEGATIVE) Disposition Disposition: Transfer Clinical Impression: Ureteral calculus, left Disposition: Acute Care Hospital Transfer Transfer To: [facility] Reason For Transfer: Urologic consultation Accepting Physician: Dar Time Discussed w/Accepting Physician: 22:09 Condition: (2) Stable Forms: Patient Portal Access Time of Disposition: 22:09 Quality - Quality Measures Quality Measures: N/A - Blood Pressure Screening Does Patient Have Any of the Following: No Blood Pressure Classification: Normal BP Reading Systolic Measurement: 112 Diastolic Measurement: 71 Screening for High Blood Pressure: < Normal BP, F/U Not Required > [G8783]
== END 2017-01-23 22:50 | disposition short-term general hospital (02) ==
LOC: ER 21:22
DX: N13.2 Hydronephrosis with renal and ureteral calculous obstruction (principal); I71.4 Abdominal aortic aneurysm, without rupture; I25.10 Atherosclerotic heart disease of native coronary artery without angina pectoris; I10 Essential (primary) hypertension; J44.9 Chronic obstructive pulmonary disease, unspecified; Z95.1 Presence of aortocoronary bypass graft; Z87.891 Personal history of nicotine dependence
CPT/HCPCS: 81001

== ENCOUNTER 2017-02-28 03:05 | Emergency (ER) | payer MEDICARE, BC ==
--- NOTE | 2017-02-28 03:26 | Emergency Department Record ---
History of Present Illness - General Chief Complaint: Shortness of breath Stated Complaint: GOMEZ Time Seen by Provider: 02/28/17 03:22 Source: Patient Mode of Arrival: Wheelchair Limitations: No limitations - History of Present Illness Initial Comments: 71 yo male presents to ED for evaluation of intermittent difficulty in breathing for the past 1 month. Patient reports a history of COPD, reports that his wheezing symptoms ahve been worsening for approximately 1 week. Patient denies fevers, chills, or productive cough symptoms, and the patient denies chest pain symptoms. MD Complaint: Shortness of breath Onset/Timin -: Week(s) Severity: Mild Consistency: Intermittent Improves With: Nothing Worsens With: Nothing Known History Of: Asthma, COPD, Other Associated Symptoms: Denies other symptoms - Related Data Home Oxygen Therapy: No Home Medications Medication Instructions Recorded Confirmed Last Taken Albuterol Sulfate 0.083% [Neb] 3 ml NEB .EVERY 4-6 HOURS PRN 02/28/17 02/28/17 Unknown Albuterol Sulfate [Ventolin Hfa] 1 - 2 puff IH .EVERY 4-6 HOURS PRN 02/28/17 Unknown Losartan Potassium 50 mg PO DAILY 02/28/17 02/28/17 Unknown Allergies Allergy/AdvReac Type Severity Reaction Status Date / Time No Known Drug Allergies Allergy Verified 11/06/16 15:55 Travel Screening - Travel/Exposure Within Last 30 Days Have you traveled within the last 30 days?: No - Travel/Exposure Within Last Year Have you traveled outside the [place] in the last year?: No - Additonal Travel Details Have you been exposed to anyone with a communicable illness?: No - Travel Symptoms Symptom Screening: None Review of Systems Constitutional: Denies: Chills, Fever, Malaise, Night sweats Eyes: Denies: Eye discharge, Eye pain ENT: Denies: Congestion, Ear pain, Epistaxis Respiratory: Reports: Dyspnea, Wheezes. Denies: Cough Cardiovascular: Reports: Dyspnea on exertion. Denies: Chest pain Endocrine: Denies: Fatigue, Heat or cold intolerance Gastrointestinal: Denies: Abdominal pain, Nausea, Vomiting Genitourinary: Denies: Incontinence, Retention Musculoskeletal: Denies: Arthralgia, Back pain, Gout, Joint swelling Skin: Denies: Bruising, Change in color Neurological: Denies: Confusion, Headache Psychiatric: Denies: Anxiety Hematological/Lymphatic: Denies: Anemia, Blood Clots Past Medical History - SOCIAL HISTORY Smoking Status: Former smoker Alcohol Use: None Drug Use: None - RESPIRATORY Hx Respiratory Disorders: Yes Hx Asthma: Yes Hx Bronchitis: Yes Hx COPD: Yes - CARDIOVASCULAR Hx Cardio Disorders: Yes Hx Hypertension: Yes Comment:: quad. bypass - NEURO Hx Neuro Disorders: No - GI Hx GI Disorders: Yes Hx Reflux: Yes Comment:: AAA - Hx Genitourinary Disorders: No - ENDOCRINE Hx Endocrine Disorders: Yes Hx Thyroid Disease: Yes (Hypothyroid) - MUSCULOSKELETAL Hx Musculoskeletal Disorders: No - PSYCH Hx Psych Problems: No - HEMATOLOGY/ONCOLOGY Hx Hematology/Oncology Disorders: No Family Medical History Any Significant Family History?: No Hx Heart Disease: Father Physical Exam - General General Appearance: Alert, Oriented x3, Cooperative, No acute distress Limitations: No limitations - Head Head exam: Atraumatic, Normocephalic, Normal inspection Head exam detail: negative: Abrasion, Contusion, Clark's sign, General tenderness, Hematoma, Laceration - Eye Eye exam: Normal appearance. negative: Conjunctival injection, Periorbital swelling, Periorbital tenderness, Scleral icterus - ENT Ear exam: negative: Auricular hematoma, Auricular trauma Nasal Exam: negative: Active bleeding, Discharge, Dried blood, Foreign body Mouth exam: negative: Drooling, Laceration, Muffled voice, Tongue elevation - Neck Neck exam: Normal inspection. negative: Meningismus, Tenderness - Respiratory Respiratory exam: Normal lung sounds bilaterally. negative: Rales, Respiratory distress, Rhonchi, Stridor - Cardiovascular Cardiovascular Exam: Regular rate, Normal rhythm, Normal heart sounds - GI/Abdominal GI/Abdominal exam: Soft. negative: Rebound, Rigid, Tenderness - Rectal Rectal exam: Deferred - exam: Deferred - Extremities Extremities exam: Normal inspection. negative: Pedal edema, Tenderness - Back Back exam: Denies: CVA tenderness (R), CVA tenderness (L) - Neurological Neurological exam: Alert, Oriented X3 - Psychiatric Psychiatric exam: Normal affect, Normal mood - Skin Skin exam: Normal color. negative: Abrasion Type of lesion: negative: abrasion Course Vital Signs 02/28/17 03:07 Temperature 98.4 F Pulse Rate 80 Respiratory 24 Rate Blood Pressure 190/104 Pulse Ox 95 - Reevaluation(s) Reevaluation #1: 02/28/17 03:33 EKG: NSR 71 LAD, normal intervals nonspecific ST-T wave changes No significant change from 02/21/17 Reevaluation #2: 02/28/17 03:56 CXR: No acute process Patient was updated on his CXR results, continues to deny GOMEZ at this time. Patient reports that his nebulizer and ventolin inhaler have been helping symptoms, denies fevers, chills, or productive cough symptoms. Antibiotic does not appears to be of benefit based on the patient's history and physical examination, will administer solumedrol and treat with Prednisone for probable COPD/asthma exacerbation. Patient agrees with plan as discussed. Disposition Disposition: Discharge Clinical Impression: COPD exacerbation Disposition: Home, Self-Care Condition: (2) Stable Instructions: COPD (Chronic Obstructive Pulmonary Disease) (ED) Additional Instructions: Return to ED if your symptoms worsen or if you have any concerns. Prednisone as directed. Follow-up with your family doctor in 1-3 days as directed. Forms: Patient Portal Access Time of Disposition: 04:00 Quality - Quality Measures Quality Measures: N/A - Blood Pressure Screening Does Patient Have Any of the Following: Active Dx of HTN Blood Pressure Classification: Hypertensive Reading Systolic Measurement: 190 Diastolic Measurement: 104 Screening for High Blood Pressure: Patient Exclusion, Hx of HTN [G9744]
[2017-02-28] MEDS: METHYLPREDNISOLONE PF 125MG/VIAL IVP SCH (04:01)
--- NOTE | 2017-02-28 04:23 | Emergency Department Record ---
History of Present Illness - General Chief Complaint: Shortness of breath Stated Complaint: GOMEZ Time Seen by Provider: 02/28/17 03:22 Source: Patient Mode of Arrival: Wheelchair Limitations: No limitations - History of Present Illness Onset/Timin -: Week(s) Severity: Mild Consistency: Intermittent Improves With: Nothing Worsens With: Nothing Known History Of: Asthma, COPD, Other Associated Symptoms: Denies other symptoms - Related Data Home Oxygen Therapy: No Home Medications Medication Instructions Recorded Confirmed Last Taken Albuterol Sulfate 0.083% [Neb] 3 ml NEB .EVERY 4-6 HOURS PRN 02/28/17 02/28/17 Unknown Albuterol Sulfate [Ventolin Hfa] 1 - 2 puff IH .EVERY 4-6 HOURS PRN 02/28/17 Unknown Losartan Potassium 50 mg PO DAILY 02/28/17 02/28/17 Unknown Previous Rx's Medication Instructions Recorded Prednisone [Prednisone 20Mg] 20 mg PO BID #10 tab 02/28/17 Allergies Allergy/AdvReac Type Severity Reaction Status Date / Time No Known Drug Allergies Allergy Verified 11/06/16 15:55 Travel Screening - Travel/Exposure Within Last 30 Days Have you traveled within the last 30 days?: No - Travel/Exposure Within Last Year Have you traveled outside the [place] in the last year?: No - Additonal Travel Details Have you been exposed to anyone with a communicable illness?: No - Travel Symptoms Symptom Screening: None Review of Systems Constitutional: Denies: Chills, Fever, Malaise, Night sweats Eyes: Denies: Eye discharge, Eye pain ENT: Denies: Congestion, Ear pain, Epistaxis Respiratory: Reports: Dyspnea, Wheezes. Denies: Cough Cardiovascular: Reports: Dyspnea on exertion. Denies: Chest pain Endocrine: Denies: Fatigue, Heat or cold intolerance Gastrointestinal: Denies: Abdominal pain, Nausea, Vomiting Genitourinary: Denies: Incontinence, Retention Musculoskeletal: Denies: Arthralgia, Back pain, Gout, Joint swelling Skin: Denies: Bruising, Change in color Neurological: Denies: Confusion, Headache Psychiatric: Denies: Anxiety Hematological/Lymphatic: Denies: Anemia, Blood Clots Past Medical History - SOCIAL HISTORY Smoking Status: Former smoker Alcohol Use: None Drug Use: None - RESPIRATORY Hx Respiratory Disorders: Yes Hx Asthma: Yes Hx Bronchitis: Yes Hx COPD: Yes - CARDIOVASCULAR Hx Cardio Disorders: Yes Hx Hypertension: Yes Comment:: quad. bypass - NEURO Hx Neuro Disorders: No - GI Hx GI Disorders: Yes Hx Reflux: Yes Comment:: AAA - Hx Genitourinary Disorders: No - ENDOCRINE Hx Endocrine Disorders: Yes Hx Thyroid Disease: Yes (Hypothyroid) - MUSCULOSKELETAL Hx Musculoskeletal Disorders: No - PSYCH Hx Psych Problems: No - HEMATOLOGY/ONCOLOGY Hx Hematology/Oncology Disorders: No Family Medical History Any Significant Family History?: No Hx Heart Disease: Father Physical Exam - General Limitations: No limitations Course Vital Signs 02/28/17 02/28/17 02/28/17 03:07 04:05 04:22 Temperature 98.4 F Pulse Rate 80 Pulse Rate [ 75 71 Pulse Ox Probe] Respiratory 24 20 20 Rate Blood Pressure 190/104 Blood Pressure 166/92 152/96 [Left Arm] Pulse Ox 95 94 L 93 L Disposition Clinical Impression: COPD exacerbation Disposition: Home, Self-Care Condition: (2) Stable Instructions: COPD (Chronic Obstructive Pulmonary Disease) (ED) Additional Instructions: Return to ED if your symptoms worsen or if you have any concerns. Prednisone as directed. Follow-up with your family doctor in 1-3 days as directed. Prescriptions: Prednisone [Prednisone 20Mg] 20 mg PO BID #10 tab Forms: Patient Portal Access Quality - Quality Measures Quality Measures: N/A - Blood Pressure Screening Does Patient Have Any of the Following: Active Dx of HTN Blood Pressure Classification: Hypertensive Reading Systolic Measurement: 190 Diastolic Measurement: 104 Screening for High Blood Pressure: Patient Exclusion, Hx of HTN [G9744]
--- NOTE | 2017-03-01 10:04 | RADIOLOGY REPORT ---
DATE: 02/28/2017. EXAM: TWO-VIEW, CHEST. HISTORY: Acute difficulty breathing. Chronic obstructive pulmonary disease. COMPARISON: Chest x-ray dated 08/26/2015. TECHNIQUE: Two views of the chest were obtained. FINDINGS: Sternal wires are present. Atrial appendage clip noted. The lungs are hyperinflated although are otherwise clear. The cardiac silhouette is not enlarged. The diaphragm is slightly flattened. Osteopenia. IMPRESSION: EMPHYSEMA. NO ACUTE INTRATHORACIC PROCESS. JOB NUMBER: [id number] MTDD
== END 2017-02-28 04:25 | disposition home or self-care (01) ==
LOC: ER 03:05
DX: J44.1 Chronic obstructive pulmonary disease with (acute) exacerbation (principal); I10 Essential (primary) hypertension; Z87.891 Personal history of nicotine dependence
CPT/HCPCS: 71020; 93005; 93010; 96374; 99284; J2930

== ENCOUNTER 2017-04-04 06:42 | Emergency (ER) | payer MEDICARE, BC ==
--- NOTE | 2017-04-04 07:18 | Emergency Department Record ---
History of Present Illness - General Chief Complaint: Hypertension Stated Complaint: HIGH BP Time Seen by Provider: 04/04/17 07:15 Source: Patient Mode of Arrival: Ambulatory Limitations: No limitations - History of Present Illness Initial Comments: 72 yo male presents to ED for evaluation of elevated blood pressure this morning. Patient denies any changes in his BP medications, denies chest pain, headache, palpitations, or chest pain symptoms. Patient reports that he is concerned about BP this morning as he "can't get it down". Complaint: Other Onset/Timin -: Hour(s) Timing: Unsure History of Same: Yes Severity: Moderate Improves With: Nothing Worsens With: Nothing Associated Symptoms: Denies other symptoms - [place] Coma Scale Eye Response: (4) Open spontaneously Motor Response: (6) Obeys commands Verbal Response: (5) Oriented [place] Total: 15 - Related Data Allergies Allergy/AdvReac Type Severity Reaction Status Date / Time No Known Drug Allergies Allergy Verified 11/06/16 15:55 Travel Screening - Travel/Exposure Within Last 30 Days Have you traveled within the last 30 days?: No Review of Systems Constitutional: Denies: Chills, Fever, Malaise, Night sweats Eyes: Denies: Eye discharge, Eye pain ENT: Denies: Congestion, Ear pain Respiratory: Denies: Cough, Dyspnea Cardiovascular: Denies: Chest pain, Dyspnea on exertion Endocrine: Denies: Fatigue, Heat or cold intolerance Gastrointestinal: Denies: Abdominal pain, Vomiting Genitourinary: Denies: Incontinence, Retention Musculoskeletal: Denies: Arthralgia, Back pain, Gout, Joint swelling Skin: Denies: Bruising, Change in color Neurological: Denies: Abnormal gait, Confusion, Headache, Seizure Psychiatric: Denies: Anxiety Hematological/Lymphatic: Denies: Anemia, Blood Clots Past Medical History - SOCIAL HISTORY Smoking Status: Former smoker Alcohol Use: None Drug Use: None - RESPIRATORY Hx Respiratory Disorders: Yes Hx Asthma: Yes Hx Bronchitis: Yes Hx COPD: Yes - CARDIOVASCULAR Hx Cardio Disorders: Yes Hx Hypertension: Yes Comment:: quad. bypass - NEURO Hx Neuro Disorders: No - GI Hx GI Disorders: Yes Hx Reflux: Yes Comment:: AAA (4.5 cm) - Hx Genitourinary Disorders: No - ENDOCRINE Hx Endocrine Disorders: Yes Hx Thyroid Disease: Yes (Hypothyroid) - MUSCULOSKELETAL Hx Musculoskeletal Disorders: No - PSYCH Hx Psych Problems: No - HEMATOLOGY/ONCOLOGY Hx Hematology/Oncology Disorders: No Family Medical History Any Significant Family History?: Yes Hx Heart Disease: Father Physical Exam - General General Appearance: Alert, Oriented x3, Cooperative, No acute distress Limitations: No limitations - Head Head exam: Atraumatic, Normocephalic, Normal inspection Head exam detail: negative: Abrasion, Contusion, Clark's sign, General tenderness, Hematoma, Laceration - Eye Eye exam: Normal appearance. negative: Conjunctival injection, Periorbital swelling, Periorbital tenderness, Scleral icterus - ENT Ear exam: negative: Auricular hematoma, Auricular trauma Nasal Exam: negative: Active bleeding, Discharge, Dried blood, Foreign body Mouth exam: negative: Drooling, Laceration, Muffled voice, Tongue elevation - Neck Neck exam: Normal inspection. negative: Meningismus, Tenderness - Respiratory Respiratory exam: Normal lung sounds bilaterally. negative: Rales, Respiratory distress, Rhonchi, Stridor - Cardiovascular Cardiovascular Exam: Regular rate, Normal rhythm, Normal heart sounds - GI/Abdominal GI/Abdominal exam: Soft. negative: Rebound, Rigid, Tenderness - Rectal Rectal exam: Deferred - exam: Deferred - Extremities Extremities exam: Normal inspection. negative: Pedal edema, Tenderness - Back Back exam: Denies: CVA tenderness (R), CVA tenderness (L) - Neurological Neurological exam: Alert, Normal gait, Oriented X3 - Psychiatric Psychiatric exam: Normal affect, Normal mood - Skin Skin exam: Normal color. negative: Abrasion Type of lesion: negative: abrasion Course Vital Signs 04/04/17 06:49 Pulse Rate [ 77 Pulse Ox Probe] Respiratory 24 Rate Blood Pressure 174/115 [Left Arm] Pulse Ox 94 L - Reevaluation(s) Reevaluation #1: 04/04/17 07:35 repeat BP has improved from 174/115 to 158/101, reports that he continues to be asymptomatic. Patient appears stable for discharge at this time. Reevaluation #2: 04/04/17 08:27 Patient reassessed, will arrange for the patient to see Dr. Moreau in the [facility] later this afternoon. Disposition Disposition: Discharge Clinical Impression: Hypertension Qualifiers: Hypertension type: unspecified Qualified Code(s): I10 - Essential (primary) hypertension Disposition: Home, Self-Care Condition: (2) Stable Instructions: Hypertension (ED) Additional Instructions: Return to ED if your symptoms worsen or if you have any concerns. Follow-up with Dr. Moreau this afternoon in the [facility] at 1:15 PM. Forms: Patient Portal Access Time of Disposition: 08:29 Quality - Blood Pressure Screening Does Patient Have Any of the Following: No Blood Pressure Classification: Hypertensive Reading Systolic Measurement: 158 Diastolic Measurement: 101
== END 2017-04-04 08:44 | disposition home or self-care (01) ==
LOC: ER 06:42
DX: I10 Essential (primary) hypertension (principal); J44.9 Chronic obstructive pulmonary disease, unspecified; Z87.891 Personal history of nicotine dependence
CPT/HCPCS: 99283

== ENCOUNTER 2017-04-11 08:07 | Emergency (ER) | payer MEDICARE, BC ==
--- NOTE | 2017-04-11 08:40 | Emergency Department Record ---
History of Present Illness - General Chief Complaint: Difficulty Breathing Stated Complaint: GOMEZ Time Seen by Provider: 04/11/17 08:25 Source: Patient Mode of Arrival: Ambulatory - History of Present Illness Initial Comments: congestion and cough and some wheezing and had an albuterol neb at 6:30 am today and this started last night and he has copd and he came in early because he gets bad quickly. PMH COPD Primary Dr. Segun Apple, ex smoker stopped 1979 , CAD and CABG feb 2016. Dr. Moreau. history of AAA 4.2 cm US every few months. Onset/Timin -: Days(s) Improves With: Bronchodilators, Rest Worsens With: Exertion Known History Of: Asthma, COPD Context: Recent URI Associated Symptoms: Cough Treatments Prior to Arrival: Bronchodilator Treatment Prior to Arrival Comment:: Inhaler and Neb - Related Data Home Oxygen Therapy: No Previous Rx's Medication Instructions Recorded Azithromycin 250 mg PO DAILY #6 tablet 04/11/17 Prednisone [Prednisone 10Mg] 10 mg PO ASDIR #30 tab 04/11/17 Allergies Allergy/AdvReac Type Severity Reaction Status Date / Time No Known Drug Allergies Allergy Verified 04/11/17 08:14 Travel Screening - Travel/Exposure Within Last 30 Days Have you traveled within the last 30 days?: No - Travel/Exposure Within Last Year Have you traveled outside the [place] in the last year?: No - Additonal Travel Details Have you been exposed to anyone with a communicable illness?: No - Travel Symptoms Symptom Screening: None Review of Systems Reviewed: No additional complaints except as noted below Constitutional: Reports: As per HPI. Denies: Chills, Fever, Malaise, Night sweats, Weakness, Weight change Eyes: Reports: As per HPI. Denies: Eye discharge, Eye pain, Photophobia, Vision change ENT: Reports: As per HPI, Congestion. Denies: Dental pain, Ear pain, Epistaxis , Hearing loss, Throat pain Respiratory: Reports: As per HPI, Cough. Denies: Dyspnea, Hemoptysis, Stridor, Wheezes Cardiovascular: Reports: As per HPI. Denies: Arrhythmia, Chest pain, Dyspnea on exertion, Edema, Murmurs, Orthopnea, Palpitations, Paroxysmal nocturnal dyspnea, Rheumatic Fever, Syncope Endocrine: Reports: As per HPI. Denies: Fatigue, Heat or cold intolerance, Polydipsia, Polyuria Gastrointestinal: Reports: As per HPI. Denies: Abdominal pain, Constipation, Diarrhea, Hematemesis, Hematochezia, Melena, Nausea, Vomiting Genitourinary: Reports: As per HPI. Denies: Dysuria, Frequency, Hematuria, Incontinence, Retention, Testicular pain, Testicular mass, Urgency Musculoskeletal: Reports: As per HPI. Denies: Arthralgia, Back pain, Gout, Joint swelling, Myalgia, Neck pain Skin: Reports: As per HPI. Denies: Bruising, Change in color, Change in hair/ nails, Lesions, Pruritus, Rash Neurological: Reports: As per HPI. Denies: Abnormal gait, Confusion, Headache, Numbness, Paresthesias, Seizure, Tingling, Tremors, Vertigo, Weakness Psychiatric: Reports: As per HPI. Denies: Anxiety, Auditory hallucinations, Depression, Homicidal thoughts, Suicidal thoughts, Visual hallucinations Hematological/Lymphatic: Reports: As per HPI. Denies: Anemia, Blood Clots, Easy bleeding, Easy bruising, Swollen glands Past Medical History - SOCIAL HISTORY Smoking Status: Former smoker Alcohol Use: Occasional Drug Use: None - RESPIRATORY Hx Respiratory Disorders: Yes Hx Asthma: Yes Hx Bronchitis: Yes Hx COPD: Yes - CARDIOVASCULAR Hx Cardio Disorders: Yes Hx Hypertension: Yes Comment:: quad. bypass - NEURO Hx Neuro Disorders: No - GI Hx GI Disorders: Yes Hx Reflux: Yes Comment:: AAA (4.5 cm) - Hx Genitourinary Disorders: No - ENDOCRINE Hx Endocrine Disorders: Yes Hx Thyroid Disease: Yes (Hypothyroid) - MUSCULOSKELETAL Hx Musculoskeletal Disorders: No - PSYCH Hx Psych Problems: No - HEMATOLOGY/ONCOLOGY Hx Hematology/Oncology Disorders: No Family Medical History Any Significant Family History?: Yes Hx Heart Disease: Father Physical Exam - General General Appearance: Alert, Oriented x3, Cooperative, Mild distress - Head Head exam: Normal inspection - Eye Eye exam: Normal appearance, PERRL Pupils: Normal accommodation - ENT ENT exam: Normal exam, Mucous membranes moist, Normal external ear exam, Normal orophraynx, TM's normal bilaterally Ear exam: Normal external inspection. negative: External canal tenderness Nasal Exam: Normal inspection. negative: Discharge, Sinus tenderness Mouth exam: Normal external inspection, Tongue normal Teeth exam: Normal inspection. negative: Dental caries Throat exam: Normal inspection. negative: Tonsillar erythema, Tonsillar exudate - Neck Neck exam: Normal inspection, Full ROM. negative: Tenderness - Respiratory Respiratory exam: Normal lung sounds bilaterally. negative: Respiratory distress - Cardiovascular Cardiovascular Exam: Regular rate, Normal rhythm, Normal heart sounds - GI/Abdominal GI/Abdominal exam: Soft, Normal bowel sounds. negative: Tenderness - Rectal Rectal exam: Deferred - exam: Deferred - Extremities Extremities exam: Normal inspection, Full ROM, Normal capillary refill. negative: Tenderness - Back Back exam: Reports: Normal inspection, Full ROM. Denies: Muscle spasm, Rash noted, Tenderness - Neurological Neurological exam: Alert, Normal gait, Oriented X3, Reflexes normal - Psychiatric Psychiatric exam: Normal affect, Normal mood - Skin Skin exam: Dry, Intact, Normal color, Warm Course Vital Signs 04/11/17 08:17 Temperature 98 F Pulse Rate 84 Respiratory 20 Rate Blood Pressure 147/97 Pulse Ox 95 Disposition Clinical Impression: Bronchitis COPD (chronic obstructive pulmonary disease) Qualifiers: COPD type: COPD with acute exacerbation Qualified Code(s): J44.1 - Chronic obstructive pulmonary disease with (acute) exacerbation Disposition: Home, Self-Care Condition: (1) Good Instructions: Acute Bronchitis (ED), COPD (Chronic Obstructive Pulmonary Disease) (ED) Additional Instructions: follow up with Dr. Lima in 5-7 day Prescriptions: Azithromycin 250 mg PO DAILY #6 tablet Prednisone [Prednisone 10Mg] 10 mg PO ASDIR #30 tab Forms: Patient Portal Access Time of Disposition: 08:57 Quality - Quality Measures Quality Measures: N/A - Blood Pressure Screening Does Patient Have Any of the Following: No Blood Pressure Classification: Hypertensive Reading Systolic Measurement: 147 Diastolic Measurement: 97 Screening for High Blood Pressure: Patient Exclusion, Hx of HTN [G9744]
[2017-04-11] MEDS ORDERED: AZITHROMYCIN 500 MG TABLET PO ONE (08:53)
[2017-04-11] MEDS ORDERED: PREDNISONE 20 MG TAB PO ONE (08:53)
== END 2017-04-11 09:00 | disposition home or self-care (01) ==
LOC: ER 08:07
DX: J44.1 Chronic obstructive pulmonary disease with (acute) exacerbation (principal); J20.9 Acute bronchitis, unspecified; J44.0 Chronic obstructive pulmonary disease with (acute) lower respiratory infection; I25.10 Atherosclerotic heart disease of native coronary artery without angina pectoris; Z87.891 Personal history of nicotine dependence
CPT/HCPCS: 99283 ×2; J7512

== ENCOUNTER 2017-09-22 14:39 | Emergency (ER) | payer MEDICARE, BC ==
--- NOTE | 2017-09-22 15:15 | Emergency Department Record ---
History of Present Illness - General Chief Complaint: Hypertension Stated Complaint: BP IS HIGH Time Seen by Provider: 09/22/17 15:11 Source: Patient Mode of Arrival: Ambulatory Limitations: No limitations - History of Present Illness Initial Comments: 72 yo male presents with a concern about his blood pressure. Yesterday and today the patient reports that he has vaguely felt different. He states the feeling is very vague. He has had anxiety attacks in the past and states he feels similar to that sensation. He checked his blood pressure at home and it was elevated to systolic of 188 to 204 and diastolic 84 to 95. 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 He was instructed increase his Losartan to 50 mg twice daily. He took a dose at 12:00. At 2:15pm his home BP was check while sitting completely asymptomatic and it was 204/90 with HR of 58. He is not currently having symptoms now as well. No headache, acute vision changes, chest pain, shortness of breath, fever, cough, abdominal or back pain, dizziness. He has an extensive history including HTN, CAD, repaired AAA. Onset/Timin -: Days(s) Timing: Intermittent History of Same: Yes History of Trauma: Yes Severity: Mild Improves With: Nothing Worsens With: Nothing Associated Symptoms: Denies other symptoms - [place]iel Coma Scale Eye Response: (4) Open spontaneously Motor Response: (6) Obeys commands Verbal Response: (5) Oriented [place] Total: 15 - Related Data Home Medications Medication Instructions Recorded Confirmed Last Taken Tamsulosin HCl [Flomax] 0.4 mg PO DAILY 09/22/17 09/22/17 09/15/17 Allergies Allergy/AdvReac Type Severity Reaction Status Date / Time No Known Drug Allergies Allergy Unverified 05/18/17 08:15 Travel Screening - Travel/Exposure Within Last 30 Days Have you traveled within the last 30 days?: No - Travel/Exposure Within Last Year Have you traveled outside the [place] in the last year?: No - Additonal Travel Details Have you been exposed to anyone with a communicable illness?: No - Travel Symptoms Symptom Screening: None Review of Systems Constitutional: Denies: Chills, Fever, Malaise, Weakness Eyes: Denies: Eye discharge, Vision change ENT: Denies: Congestion, Ear pain, Epistaxis, Throat pain Respiratory: Denies: Cough, Dyspnea, Hemoptysis, Stridor, Wheezes Cardiovascular: Reports: Edema (mild chronic, improved from baseline). Denies: Arrhythmia, Chest pain, Dyspnea on exertion, Syncope Endocrine: Denies: Fatigue Gastrointestinal: Denies: Abdominal pain, Diarrhea Genitourinary: Denies: Dysuria, Frequency Musculoskeletal: Denies: Arthralgia, Back pain, Joint swelling, Myalgia Skin: Denies: Bruising, Change in color, Rash Neurological: Denies: Abnormal gait, Confusion, Headache, Numbness, Seizure, Tingling, Tremors, Vertigo, Weakness Psychiatric: Denies: Anxiety Hematological/Lymphatic: Denies: Easy bleeding, Easy bruising Past Medical History - SOCIAL HISTORY Smoking Status: Former smoker Alcohol Use: Rare Drug Use: None - RESPIRATORY Hx Respiratory Disorders: Yes Hx Asthma: Yes Hx Bronchitis: Yes Hx COPD: Yes - CARDIOVASCULAR Hx Cardio Disorders: Yes Hx Hypertension: Yes Comment:: quad. bypass, AAA - NEURO Hx Neuro Disorders: No - GI Hx GI Disorders: Yes Hx Reflux: Yes Comment:: AAA (4.5 cm) - Hx Genitourinary Disorders: Yes Hx Kidney Stones: Yes - ENDOCRINE Hx Endocrine Disorders: Yes Hx Thyroid Disease: Yes (Hypothyroid) - MUSCULOSKELETAL Hx Musculoskeletal Disorders: No - PSYCH Hx Psych Problems: No - HEMATOLOGY/ONCOLOGY Hx Hematology/Oncology Disorders: No Family Medical History Any Significant Family History?: No Hx Heart Disease: Father Physical Exam - General General Appearance: Alert, Oriented x3, Cooperative, No acute distress Limitations: No limitations - Head Head exam: Atraumatic, Normal inspection - Eye Eye exam: Normal appearance, PERRL, EOMI. negative: Conjunctival injection, Periorbital swelling, Scleral icterus - ENT ENT exam: Normal exam, Mucous membranes moist, Normal orophraynx Ear exam: Normal external inspection Nasal Exam: Normal inspection Mouth exam: Normal external inspection Teeth exam: Normal inspection Throat exam: Normal inspection - Neck Neck exam: Normal inspection, Full ROM. negative: Tenderness - Respiratory Respiratory exam: Normal lung sounds bilaterally. negative: Respiratory distress, Rhonchi, Stridor, Wheezes - Cardiovascular Cardiovascular Exam: Regular rate, Normal rhythm, Normal heart sounds Peripheral Pulses: 2+: Radial (R), Radial (L) - GI/Abdominal GI/Abdominal exam: Soft. negative: Tenderness - Rectal Rectal exam: Deferred - exam: Deferred - Extremities Extremities exam: Normal inspection, Normal capillary refill, Pedal edema ( trace bilateral) - Back Back exam: Reports: Normal inspection, Full ROM. Denies: CVA tenderness (R), CVA tenderness (L), Muscle spasm, Rash noted, Tenderness - Neurological Neurological exam: Alert, CN II-XII intact, Normal gait, Oriented X3. negative : Abnormal gait, Altered, Motor sensory deficit - Psychiatric Psychiatric exam: Normal affect, Normal mood. negative: Agitated, Anxious - Skin Skin exam: Dry, Intact, Normal color, Warm. negative: Diaphoretic, Erythema Course - Reevaluation(s) Reevaluation #1: 09/22/17 15:44 EKG sinus [place], rate is 58, intervals normal, axis L, ST no acute changes No significant changes on the EKG from 02/28/17 No acute changes on the CBC. 09/22/17 15:53 The CMP was reviewed. No acute changes. 09/22/17 16:12 The BP is 157/92 The patient is asymptomatic. I discussed with him continuing Dr Goldstein's recommendation with his BP medication changes and follow up first of the week We discussed reasons to return to the ED as well Medical Decision Making - Lab Data Result diagrams: 09/22/17 15:34 09/22/17 15:34 Disposition Disposition: Discharge Clinical Impression: Hypertension Disposition: Home, Self-Care Condition: (1) Good Instructions: Hypertension (ED) Additional Instructions: Return to the ED if you have any symptoms, dizziness, chest pain, short of breath, any new concerns Forms: Patient Portal Access Time of Disposition: 16:14 Quality - Quality Measures Quality Measures: N/A - Blood Pressure Screening Does Patient Have Any of the Following: Active Dx of HTN Blood Pressure Classification: Hypertensive Reading Systolic Measurement: 188 Diastolic Measurement: 104 Screening for High Blood Pressure: Patient Exclusion, Hx of HTN [G9744]
[2017-09-22 15:35] LABS: BASO % 0.3 % (0-6); EOS % 2.1 % (0-6); GRAN % 74.8 % (47-80); HEMATOCRIT 46.5 % (42.0-52.0); HEMOGLOBIN 15.1 gm/dl (14.0-18.0); LYMPH % 14.4 % (16-45); MEAN CELL VOLUME 92.6 fl (81-97); MEAN CORPUSCULAR HEMOGLOBIN 30.1 pg (27-33); MEAN CORPUSCULAR HGB CONC 32.5 g/dl (32-36); MEAN PLATELET VOLUME 10.2 fl (7.4-10.4); MONO % 8.4 % (0-9); PLATELET COUNT 272 K/uL (130-400); RED BLOOD COUNT 5.02 M/uL (4.40-5.70); RED CELL DISTRIBUTION WIDTH 14.1 % (11.5-14.5); WHITE BLOOD COUNT W/O DIFF 9.1 K/uL (4.2-12.2)
[2017-09-22 15:45] LABS: BLOOD UREA NITROGEN 16 mg/dL (8-23); CREATININE 1.1 mg/dL (0.7-1.2); EST GLOMERULAR FILTRATION RATE > 60 mL/min
[2017-09-22 15:47] LABS: GLUCOSE,RANDOM 101 mg/dL (74-109)
[2017-09-22 15:50] LABS: ALB/GLOB RATIO 1.7 (1.1-1.8); ALBUMIN 4.4 g/dL (4.0-5.0); ALKALINE PHOSPHATASE 78 U/L (40-129); ALT/SGPT 20 U/L (<41); AST/SGOT 18 U/L (10.0-50.0)
== END 2017-09-22 16:23 | disposition home or self-care (01) ==
LOC: ER 14:39
DX: I10 Essential (primary) hypertension (principal); I25.10 Atherosclerotic heart disease of native coronary artery without angina pectoris; Z95.1 Presence of aortocoronary bypass graft; Z87.891 Personal history of nicotine dependence
CPT/HCPCS: 80053; 83735; 85025; 93005; 93010; 99284

== ENCOUNTER 2017-10-11 03:41 | Emergency (ER) | payer MEDICARE, BC ==
--- NOTE | 2017-10-11 04:11 | Emergency Department Record ---
History of Present Illness - General Chief Complaint: Hypertension Stated Complaint: HYPERTENSION Time Seen by Provider: 10/11/17 03:53 Source: Patient Mode of Arrival: Ambulatory Limitations: No limitations - History of Present Illness Initial Comments: pt woke and felt a little funny like his blood pressure might be up so he took it and found his cuff to say he was over 200. he had no ramos, no cp, no other symptoms. he said he had some muscle soreness from chopping down limbs that lasted less then a minute. when he got here his bp was much better. his metoprolol was recently reduced because he was having bradycardia. MD Complaint: Dizziness Onset/Timin -: Hour(s) Timing: Awoke with symptoms Description: Other History of Same: Yes Severity: Mild Improves With: Nothing Worsens With: Nothing Associated Symptoms: Denies other symptoms - Magd[place] Coma Scale Eye Response: (4) Open spontaneously Motor Response: (6) Obeys commands Verbal Response: (5) Oriented [place] Total: 15 - Related Data Allergies Allergy/AdvReac Type Severity Reaction Status Date / Time No Known Drug Allergies Allergy Verified 10/11/17 04:13 Travel Screening - Travel/Exposure Within Last 30 Days Have you traveled within the last 30 days?: No - Travel/Exposure Within Last Year Have you traveled outside the [place] in the last year?: No - Additonal Travel Details Have you been exposed to anyone with a communicable illness?: No - Travel Symptoms Symptom Screening: None Review of Systems Reviewed: No additional complaints except as noted below Constitutional: Reports: As per HPI. Denies: Chills, Fever, Malaise, Night sweats, Weakness, Weight change Eyes: Reports: As per HPI. Denies: Eye discharge, Eye pain, Photophobia, Vision change ENT: Reports: As per HPI. Denies: Congestion, Dental pain, Ear pain, Epistaxis , Hearing loss, Throat pain Respiratory: Reports: As per HPI. Denies: Cough, Dyspnea, Hemoptysis, Stridor, Wheezes Cardiovascular: Reports: As per HPI. Denies: Arrhythmia, Chest pain, Dyspnea on exertion, Edema, Murmurs, Orthopnea, Palpitations, Paroxysmal nocturnal dyspnea, Rheumatic Fever, Syncope Endocrine: Reports: As per HPI. Denies: Fatigue, Heat or cold intolerance, Polydipsia, Polyuria Gastrointestinal: Reports: As per HPI. Denies: Abdominal pain, Constipation, Diarrhea, Hematemesis, Hematochezia, Melena, Nausea, Vomiting Genitourinary: Reports: As per HPI. Denies: Dysuria, Frequency, Hematuria, Incontinence, Retention, Testicular pain, Testicular mass, Urgency Musculoskeletal: Reports: As per HPI. Denies: Arthralgia, Back pain, Gout, Joint swelling, Myalgia, Neck pain Skin: Reports: As per HPI. Denies: Bruising, Change in color, Change in hair/ nails, Lesions, Pruritus, Rash Neurological: Reports: As per HPI. Denies: Abnormal gait, Confusion, Headache, Numbness, Paresthesias, Seizure, Tingling, Tremors, Vertigo, Weakness Psychiatric: Reports: As per HPI. Denies: Anxiety, Auditory hallucinations, Depression, Homicidal thoughts, Suicidal thoughts, Visual hallucinations Hematological/Lymphatic: Reports: As per HPI. Denies: Anemia, Blood Clots, Easy bleeding, Easy bruising, Swollen glands Past Medical History - SOCIAL HISTORY Smoking Status: Former smoker - RESPIRATORY Hx Respiratory Disorders: Yes Hx Asthma: Yes Hx Bronchitis: Yes Hx COPD: Yes - CARDIOVASCULAR Hx Cardio Disorders: Yes Hx Hypertension: Yes Comment:: quad. bypass, AAA - NEURO Hx Neuro Disorders: No - GI Hx GI Disorders: Yes Hx Reflux: Yes Comment:: AAA (4.5 cm) - Hx Genitourinary Disorders: Yes Hx Kidney Stones: Yes - ENDOCRINE Hx Endocrine Disorders: Yes Hx Thyroid Disease: Yes (Hypothyroid) - MUSCULOSKELETAL Hx Musculoskeletal Disorders: No - PSYCH Hx Psych Problems: No - HEMATOLOGY/ONCOLOGY Hx Hematology/Oncology Disorders: No Family Medical History Any Significant Family History?: No Hx Heart Disease: Father Physical Exam - General General Appearance: Alert, Oriented x3, Cooperative, No acute distress - Head Head exam: Normal inspection - Eye Eye exam: Normal appearance, PERRL, EOMI Pupils: Normal accommodation - ENT ENT exam: Normal exam, Mucous membranes moist, Normal external ear exam, Normal orophraynx Ear exam: Normal external inspection. negative: External canal tenderness Nasal Exam: Normal inspection. negative: Discharge, Sinus tenderness Mouth exam: Normal external inspection, Tongue normal Teeth exam: Normal inspection. negative: Dental caries Throat exam: Normal inspection. negative: Tonsillar erythema, Tonsillar exudate - Neck Neck exam: Normal inspection, Full ROM. negative: Tenderness - Respiratory Respiratory exam: Normal lung sounds bilaterally. negative: Respiratory distress - Cardiovascular Cardiovascular Exam: Regular rate, Normal rhythm, Normal heart sounds - GI/Abdominal GI/Abdominal exam: Soft, Normal bowel sounds. negative: Tenderness - Rectal Rectal exam: Deferred - exam: Deferred - Extremities Extremities exam: Normal inspection, Full ROM, Normal capillary refill. negative: Tenderness - Back Back exam: Reports: Normal inspection, Full ROM. Denies: Muscle spasm, Rash noted, Tenderness - Neurological Neurological exam: Alert, CN II-XII intact, Normal gait, Oriented X3 - Psychiatric Psychiatric exam: Normal affect, Normal mood - Skin Skin exam: Dry, Intact, Normal color, Warm Course Vital Signs 10/11/17 03:46 Temperature 97.7 F Pulse Rate [ 72 Pulse Ox Probe] Respiratory 20 Rate Blood Pressure 164/108 [Left Arm] Pulse Ox 95 - Reevaluation(s) Reevaluation #1: 10/11/17 04:32 pt remained asymptomatic. repeat bp 143/88 Disposition Disposition: Discharge Clinical Impression: Hypertension Qualifiers: Hypertension type: essential hypertension Qualified Code(s): I10 - Essential ( primary) hypertension Disposition: Home, Self-Care Condition: (1) Good Instructions: Hypertension (ED) Additional Instructions: follow up with dr jin today. return sooner if worse. have bp momitor checked Forms: Patient Portal Access Quality - Quality Measures Quality Measures: N/A - Blood Pressure Screening Does Patient Have Any of the Following: Active Dx of HTN Blood Pressure Classification: Pre-Hypertensive BP Reading Systolic Measurement: 143 Diastolic Measurement: 88 Screening for High Blood Pressure: Patient Exclusion, Hx of HTN [G9744]
== END 2017-10-11 04:37 | disposition home or self-care (01) ==
LOC: ER 03:41
DX: I10 Essential (primary) hypertension (principal); R42 Dizziness and giddiness; J44.9 Chronic obstructive pulmonary disease, unspecified; Z87.891 Personal history of nicotine dependence; Z95.1 Presence of aortocoronary bypass graft
CPT/HCPCS: 93005; 93010; 99283

== ENCOUNTER 2017-12-18 05:46 | Emergency (ER) | payer MEDICARE, BC ==
--- NOTE | 2017-12-18 05:59 | Emergency Department Record ---
History of Present Illness - General Chief Complaint: Hypertension Stated Complaint: HIGH BP Time Seen by Provider: 12/18/17 05:48 Source: Patient, Family Mode of Arrival: Ambulatory Limitations: No limitations - History of Present Illness Initial Comments: 72 yo male presents with concerns about his blood pressure. He takes his blood pressure many times a day. His range in his log is generally in the 130-150 systolic and 70-90 diastolic. His 2:15am blood pressure check was 145/82. His 5am check was 200 systolic. He is asymptomatic. He has been working with Dr Moreau to control his blood pressure. No headaches, vision changes, chest pain or shortness of breath. No abdominal pain or edema. The patient has not taken his morning medication yet. He is due for PCP is Dr Lima. Complaint: Other -: Hour(s) (1) Description: Other (No symptoms) History of Same: Yes Severity: Mild Improves With: Nothing Worsens With: Nothing - [place] Coma Scale Eye Response: (4) Open spontaneously Motor Response: (6) Obeys commands Verbal Response: (5) Oriented [place] Total: 15 - Related Data Home Medications Medication Instructions Recorded Confirmed Last Taken Amlodipine Besylate [Norvasc] 5 mg PO DAILY PRN 12/18/17 12/18/17 Unknown Allergies Allergy/AdvReac Type Severity Reaction Status Date / Time No Known Drug Allergies Allergy Verified 10/11/17 04:13 Review of Systems Constitutional: Denies: Chills, Fever, Weakness Eyes: Denies: Eye discharge ENT: Denies: Congestion, Throat pain Respiratory: Denies: Cough, Dyspnea Cardiovascular: Denies: Chest pain, Edema, Palpitations, Syncope Endocrine: Denies: Fatigue Gastrointestinal: Denies: Abdominal pain, Diarrhea, Nausea, Vomiting Genitourinary: Denies: Dysuria, Frequency, Hematuria Musculoskeletal: Denies: Arthralgia, Back pain, Myalgia Skin: Denies: Bruising, Change in color, Rash Neurological: Denies: Headache, Numbness, Vertigo, Weakness Psychiatric: Reports: Anxiety Hematological/Lymphatic: Denies: Easy bleeding, Easy bruising Past Medical History - SOCIAL HISTORY Smoking Status: Former smoker - RESPIRATORY Hx Respiratory Disorders: Yes Hx Asthma: Yes Hx Bronchitis: Yes Hx COPD: Yes Hx Pneumonia: Yes (long ago) - CARDIOVASCULAR Hx Cardio Disorders: Yes Hx Cardiac Cath: Yes 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-has basket in-- checks yearly-been there 10 yrs) Hx Hypertension: Yes (Dr Moreau Rx) Hx Coronary Artery Bypass Graft: Yes (x4) - NEURO Hx Neuro Disorders: No - GI Hx GI Disorders: Yes Hx Reflux: Yes - Hx Genitourinary Disorders: Yes Hx Kidney Stones: Yes Hx Prostate Problems: Yes (on Flomax "as needed") Hx Renal Disease: No - ENDOCRINE Hx Endocrine Disorders: Yes Hx Thyroid Disease: Yes - MUSCULOSKELETAL Hx Musculoskeletal Disorders: Yes Hx Arthritis: Yes Hx Back Injury: Yes (10 yrs ago fell on my back-rib "out of place") - PSYCH Hx Psych Problems: Yes Hx Anxiety: Yes (no meds) - HEMATOLOGY/ONCOLOGY Hx Hematology/Oncology Disorders: No Family Medical History Hx Heart Disease: Father Physical Exam - General General Appearance: Alert, Oriented x3, Cooperative, No acute distress Limitations: No limitations - Head Head exam: Atraumatic, Normal inspection - Eye Eye exam: Normal appearance. negative: Conjunctival injection - ENT ENT exam: Normal exam, Mucous membranes moist Ear exam: Normal external inspection Nasal Exam: Normal inspection Mouth exam: Normal external inspection - Neck Neck exam: Normal inspection - Respiratory Respiratory exam: Normal lung sounds bilaterally. negative: Accessory muscle use, Decreased breath sounds, Respiratory distress, Rhonchi, Stridor, Wheezes - Cardiovascular Cardiovascular Exam: Regular rate, Normal rhythm, Normal heart sounds Peripheral Pulses: 2+: Radial (R), Radial (L) - GI/Abdominal GI/Abdominal exam: Soft. negative: Tenderness - Rectal Rectal exam: Deferred - exam: Deferred - Extremities Extremities exam: Normal inspection. negative: Pedal edema - Back Back exam: Denies: CVA tenderness (R), CVA tenderness (L) - Neurological Neurological exam: Alert, Oriented X3 - Psychiatric Psychiatric exam: Normal affect, Normal mood - Skin Skin exam: Dry, Intact, Normal color, Warm Course - Reevaluation(s) Reevaluation #1: The EMR was reviewed. Multiple visits for concerns about HTN noted. The patient saw Dr Moreau last week. He was given a prescription for amlodipine. The patient states he did not take his morning medications yet 12/18/17 06:01 12/18/17 06:09 Most recent EKG and labs reviewed. 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 Referrals: MARIA T BEAR [MEDICAL DOCTOR] - Forms: Patient Portal Access Time of Disposition: 06:34 Quality - Quality Measures Quality Measures: N/A - Blood Pressure Screening Does Patient Have Any of the Following: Active Dx of HTN Blood Pressure Classification: Hypertensive Reading Systolic Measurement: 180 Diastolic Measurement: 99 Screening for High Blood Pressure: Patient Exclusion, Hx of HTN [G9744]
== END 2017-12-18 06:45 | disposition home or self-care (01) ==
LOC: ER 05:46
DX: I10 Essential (primary) hypertension (principal); J44.9 Chronic obstructive pulmonary disease, unspecified; Z86.718 Personal history of other venous thrombosis and embolism; Z87.891 Personal history of nicotine dependence
CPT/HCPCS: 99283

== ENCOUNTER 2017-12-27 06:35 | Day surgery (SDC) | payer MEDICARE, BC ==
[2017-12-27] MEDS ORDERED: TETRACAINE HCL 0.5% 15 ML OPTH BTL OPTH ONE (06:36)
[2017-12-27] MEDS ORDERED: LIDOCAINE 2% MDV (20MG/ML) 20ML VIAL IV ONE (06:36)
[2017-12-27] MEDS ORDERED: PROPOFOL 10 MG/ML VIAL IV ONE (06:36)
[2017-12-27] MEDS ORDERED: CIPROFLOXACIN HCL 0.0015 GM, PHENYLEPHRINE HCL 0.05 GM, KETOROLAC TROMETHAMINE 0.000625 GM MC ONE ×5 (15:30)
--- NOTE | 2017-12-29 14:04 | Operative Note ---
DATE OF PROCEDURE: 12/27/17. PREOPERATIVE DIAGNOSIS: Nuclear sclerotic and cortical cataract, left eye. POSTOPERATIVE DIAGNOSIS: Nuclear sclerotic and cortical cataract, left eye. OPERATION: Phacoemulsification of cataractous lens with implantation of intraocular lens. LENS IMPLANT USED: Marshall Model PCB00 + 17.0 diopters. COMPLICATIONS: None. PROCEDURE IN DETAIL: Following a retrobulbar and facial block, the patient was prepped and draped in the usual fashion for eye surgery. A lid speculum was placed in the left eye after which a 2.4 mm tunnel wound was placed at the temporal limbus and dissected into clear cornea. A paracentesis was placed at 2 o'clock hours to the left and right of the initial incision and the chamber deepened with Viscoelastic. The keratome was then used to enter the anterior chamber after which the continuous circular capsulorrhexis was accomplished without difficulty using a bent needle and a Utrata forceps. Hydrodissection and hydrodelineation of the lens was performed after which the nucleus of the lens was removed using the Phaco handpiece in the [id number] technique. The residual cortical material was irrigated and aspirated from the eye after which the bag and chamber were re-examined. The bag was re-inflated with Viscoelastic and the intraocular lens injected into the capsular bag where it centered well. The Viscoelastic was then copiously irrigated and aspirated from the eye after which the temporal tunnel wound and paracentesis were hydrated and the wounds were examined. They were noted to be watertight. The lid speculum was removed from the eye and the eye patched and shielded. The patient was transferred to the recovery room in satisfactory condition and given an appointment to be reexamined in the clinic later today or as directed by Dr. Gross. JOB NUMBER: [id number] [facility]
== END 2017-12-27 08:50 | disposition home or self-care (01) ==
LOC: SUR 06:35
PROVIDERS: ATTEND Ophthalmology
DX: H25.12 Age-related nuclear cataract, left eye (principal); I10 Essential (primary) hypertension; E78.00 Pure hypercholesterolemia, unspecified; J44.9 Chronic obstructive pulmonary disease, unspecified; J45.909 Unspecified asthma, uncomplicated; I25.10 Atherosclerotic heart disease of native coronary artery without angina pectoris

== ENCOUNTER 2018-01-03 08:14 | Day surgery (SDC) | payer MEDICARE, BC ==
[2018-01-03] MEDS ORDERED: LIDOCAINE 1% MPF 100MG/10ML STERILE-PAK AMPULE IV ONE (08:15)
[2018-01-03] MEDS ORDERED: NEOMYCIN/POLY./DEXAM OPTH OINT OPTH ONE (08:15)
[2018-01-03] MEDS ORDERED: LIDOCAINE 2% MDV (20MG/ML) 20ML VIAL IV ONE ×2 (08:15)
[2018-01-03] MEDS ORDERED: TETRACAINE HCL 0.5% 15 ML OPTH BTL OPTH ONE (08:15)
[2018-01-03] MEDS ORDERED: PROPOFOL 10 MG/ML VIAL IV ONE (08:15)
[2018-01-03] MEDS ORDERED: EPINEPHRINE 1 MG/ML AMPUL SQ ONE (08:15)
[2018-01-03] MEDS ORDERED: TETRACAINE HCL 0.5% OPTH 2ML SOLU OPTH ONE (08:15)
[2018-01-03] MEDS ORDERED: CIPROFLOXACIN HCL 0.0015 GM, PHENYLEPHRINE HCL 0.05 GM, KETOROLAC TROMETHAMINE 0.000625 GM MC ONE ×5 (11:15)
--- NOTE | 2018-01-05 10:50 | Operative Note ---
DATE OF PROCEDURE: 01/03/18. PREOPERATIVE DIAGNOSIS: Nuclear sclerotic cataract, left eye. POSTOPERATIVE DIAGNOSIS: Nuclear sclerotic cataract, left eye. OPERATION: Phacoemulsification of cataractous lens with implantation of intraocular lens. LENS IMPLANT USED: Marshall Model PCB00 + 16.5 diopters. COMPLICATIONS: None. PROCEDURE IN DETAIL: Following a retrobulbar and facial block, the patient was prepped and draped in the usual fashion for eye surgery. A lid speculum was placed in the left eye after which a 2.4 mm tunnel wound was placed at the temporal limbus and dissected into clear cornea. A paracentesis was placed at 2 o'clock hours to the left and right of the initial incision and the chamber deepened with Viscoelastic. The keratome was then used to enter the anterior chamber after which the continuous circular capsulorrhexis was accomplished without difficulty using a bent needle and a Utrata forceps. Hydrodissection and hydrodelineation of the lens was performed after which the nucleus of the lens was removed using the Phaco handpiece in the [id number] technique. The residual cortical material was irrigated and aspirated from the eye after which the bag and chamber were re-examined. The bag was re-inflated with Viscoelastic and the intraocular lens injected into the capsular bag where it centered well. The Viscoelastic was then copiously irrigated and aspirated from the eye after which the temporal tunnel wound and paracentesis were hydrated and the wounds were examined. They were noted to be watertight. The lid speculum was removed from the eye and the eye patched and shielded. The patient was transferred to the recovery room in satisfactory condition and given an appointment to be reexamined in the clinic later today or as directed by Dr. Gross. JOB NUMBER: [id number] [facility]
== END 2018-01-03 10:35 | disposition home or self-care (01) ==
LOC: SUR 08:14
PROVIDERS: ATTEND Ophthalmology
DX: H25.12 Age-related nuclear cataract, left eye (principal); I10 Essential (primary) hypertension; E78.00 Pure hypercholesterolemia, unspecified; E03.9 Hypothyroidism, unspecified; J44.9 Chronic obstructive pulmonary disease, unspecified; Z95.1 Presence of aortocoronary bypass graft; I71.4 Abdominal aortic aneurysm, without rupture
CPT/HCPCS: J0171; J3490

== ENCOUNTER 2018-01-30 12:16 | Emergency (ER) | payer MEDICARE, BC ==
--- NOTE | 2018-01-30 12:38 | Emergency Department Record ---
History of Present Illness - General Chief Complaint: Abdominal Pain Stated Complaint: LOWER RT ABD PAIN Time Seen by Provider: 01/30/18 12:26 Source: Patient, RN notes reviewed Mode of Arrival: Ambulatory - History of Present Illness Initial Comments: right lower quad pain and this started 3 weeks ago and no nausea or vomiting and he had a AAA repaired june 2017 and he also had a kidney stone with a stent and had lithotripsy. PCP Dr. Lima .Patient had a regular BM today.Dr Walker and Dr. Joaquin are his vascular Drs and he had the stent placed in [facility]. June 2017 Onset/Timin -: Week(s) Radiation: R flank, RLQ Severity: Moderate Severity scale (1-10): 5 Quality: Aching, Burning Consistency: Constant, Intermittent - Related Data Allergies Allergy/AdvReac Type Severity Reaction Status Date / Time No Known Drug Allergies Allergy Verified 01/30/18 12:24 Travel Screening - Travel/Exposure Within Last 30 Days Have you traveled within the last 30 days?: No - Travel/Exposure Within Last Year Have you traveled outside the [place] in the last year?: No - Additonal Travel Details Have you been exposed to anyone with a communicable illness?: No - Travel Symptoms Symptom Screening: None Review of Systems Reviewed: No additional complaints except as noted below Constitutional: Reports: As per HPI. Denies: Chills, Fever, Malaise, Night sweats, Weakness, Weight change Eyes: Reports: As per HPI. Denies: Eye discharge, Eye pain, Photophobia, Vision change ENT: Reports: As per HPI. Denies: Congestion, Dental pain, Ear pain, Epistaxis , Hearing loss, Throat pain Respiratory: Reports: As per HPI. Denies: Cough, Dyspnea, Hemoptysis, Stridor, Wheezes Cardiovascular: Reports: As per HPI. Denies: Arrhythmia, Chest pain, Dyspnea on exertion, Edema, Murmurs, Orthopnea, Palpitations, Paroxysmal nocturnal dyspnea, Rheumatic Fever, Syncope Endocrine: Reports: As per HPI. Denies: Fatigue, Heat or cold intolerance, Polydipsia, Polyuria Gastrointestinal: Reports: As per HPI, Abdominal pain (right lower quad pain). Denies: Constipation, Diarrhea, Hematemesis, Hematochezia, Melena, Nausea, Vomiting Genitourinary: Reports: As per HPI. Denies: Dysuria, Frequency, Hematuria, Incontinence, Retention, Testicular pain, Testicular mass, Urgency Musculoskeletal: Reports: As per HPI. Denies: Arthralgia, Back pain, Gout, Joint swelling, Myalgia, Neck pain Skin: Reports: As per HPI. Denies: Bruising, Change in color, Change in hair/ nails, Lesions, Pruritus, Rash Neurological: Reports: As per HPI. Denies: Abnormal gait, Confusion, Headache, Numbness, Paresthesias, Seizure, Tingling, Tremors, Vertigo, Weakness Psychiatric: Reports: As per HPI. Denies: Anxiety, Auditory hallucinations, Depression, Homicidal thoughts, Suicidal thoughts, Visual hallucinations Hematological/Lymphatic: Reports: As per HPI. Denies: Anemia, Blood Clots, Easy bleeding, Easy bruising, Swollen glands Past Medical History - SOCIAL HISTORY Smoking Status: Former smoker Alcohol Use: None Drug Use: None - RESPIRATORY Hx Respiratory Disorders: Yes Hx Asthma: Yes Hx Bronchitis: Yes Hx COPD: Yes Hx Pneumonia: Yes (long ago) - CARDIOVASCULAR Hx Cardio Disorders: Yes Hx Cardiac Cath: Yes 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-has basket in-- checks yearly-been there 10 yrs) Hx Hypertension: Yes (Dr Moreau Rx) Hx Coronary Artery Bypass Graft: Yes (x4) - NEURO Hx Neuro Disorders: No - GI Hx GI Disorders: Yes Hx Reflux: Yes - Hx Genitourinary Disorders: Yes Hx Kidney Stones: Yes (many) Hx Prostate Problems: Yes (on Flomax "as needed") Hx Renal Disease: No - ENDOCRINE Hx Endocrine Disorders: Yes Hx Thyroid Disease: Yes - MUSCULOSKELETAL Hx Musculoskeletal Disorders: Yes Hx Arthritis: Yes Hx Back Injury: Yes (10 yrs ago fell on my back-rib "out of place") - PSYCH Hx Psych Problems: Yes Hx Anxiety: Yes (no meds) - HEMATOLOGY/ONCOLOGY Hx Hematology/Oncology Disorders: No Family Medical History Any Significant Family History?: No Hx Heart Disease: Father Physical Exam - General General Appearance: Alert, Oriented x3, Cooperative, No acute distress - Head Head exam: Normal inspection - Eye Eye exam: Normal appearance, PERRL Pupils: Normal accommodation - ENT ENT exam: Normal exam, Mucous membranes moist, Normal external ear exam, Normal orophraynx, TM's normal bilaterally Ear exam: Normal external inspection. negative: External canal tenderness Nasal Exam: Normal inspection. negative: Discharge, Sinus tenderness Mouth exam: Normal external inspection, Tongue normal Teeth exam: Normal inspection. negative: Dental caries Throat exam: Normal inspection. negative: Tonsillar erythema, Tonsillar exudate - Neck Neck exam: Normal inspection, Full ROM. negative: Tenderness - Respiratory Respiratory exam: Normal lung sounds bilaterally. negative: Respiratory distress - Cardiovascular Cardiovascular Exam: Regular rate, Normal rhythm, Normal heart sounds - GI/Abdominal GI/Abdominal exam: Soft, Normal bowel sounds, Distended (patient states overweight and not bigger than usual), Tenderness (right lower quad pain), Other (and testicle neg and neg hernia check). negative: Guarding, Rebound, Rigid - Rectal Rectal exam: Deferred - exam: Deferred - Extremities Extremities exam: Normal inspection, Full ROM, Normal capillary refill. negative: Tenderness - Back Back exam: Reports: Normal inspection, Full ROM. Denies: Muscle spasm, Rash noted, Tenderness - Neurological Neurological exam: Alert, Normal gait, Oriented X3, Reflexes normal - Psychiatric Psychiatric exam: Normal affect, Normal mood - Skin Skin exam: Dry, Intact, Normal color, Warm Course Vital Signs 01/30/18 12:18 Temperature 97.5 F L Pulse Rate 68 Respiratory 16 Rate Blood Pressure 143/89 Pulse Ox 98 - Reevaluation(s) Reevaluation #1: pain free at this time, without pain meds 01/30/18 15:16 01/30/18 15:17 Reevaluation #2: CT of aorta with contrast shows a blush of contrast on the right side on the illiac portion of the stent 01/30/18 15:46 Reevaluation #3: paged Dr. Joaquin and Dr. Benjamin is [facility] consultant and will page him. Also will page Dr. Painter and transfer to [facility] for admission. 01/30/18 16:17 Reevaluation #4: Discussced case with Dr. Barfield and will transfer to [facility] for D service . Discussed case with Dr. Painter and will transfer to [facility] 01/30/18 16:27 Medical Decision Making - Data Complexity MDM Data: Labs Ordered and/or Reviewed (wbc 10,400, bun 19 ,creat 1.3), X-Ray Ordered and/or Reviewed (CT without contrast of abd No obstructive uropathy, with diverticulosis,without diverticulitis ), EKG Ordered and/or Reviewed (No acute changes) - Lab Data Result diagrams: 01/30/18 13:02 01/30/18 13:02 Disposition Clinical Impression: Abdominal pain Qualifiers: Abdominal location: right lower quadrant Qualified Code(s): R10.31 - Right lower quadrant pain Aortic aneurysm Qualifiers: Aortic location: abdominal aorta Presence of rupture: without rupture Qualified Code(s): I71.4 - Abdominal aortic aneurysm, without rupture Endoleak post endovascular aneurysm repair Qualifiers: Encounter type: initial encounter Qualified Code(s): T82.330A - Leakage of aortic (bifurcation) graft (replacement), initial encounter Disposition: Acute Care Hospital Transfer Condition: (2) Stable Forms: Patient Portal Access Time of Disposition: 15:50 Quality - Quality Measures Quality Measures: N/A - Blood Pressure Screening Does Patient Have Any of the Following: No Blood Pressure Classification: Pre-Hypertensive BP Reading Systolic Measurement: 143 Diastolic Measurement: 89 Screening for High Blood Pressure: < Pre-Hypertensive BP, F/U Documented > [ G8950] Pre-Hypertensive Follow-up Interventions: Referral to alternative/primary care provider.
[2018-01-30] MEDS ORDERED: 0.9 % SODIUM CHLORIDE 1000ML 1,000 ML IV PRN (12:45)
[2018-01-30 13:14] LABS: BASO % 0.4 % (0-6); EOS % 2.1 % (0-6); GRAN % 76.7 % (47-80); HEMATOCRIT 47.2 % (42.0-52.0); HEMOGLOBIN 15.6 gm/dl (14.0-18.0); MEAN CELL VOLUME 92.7 fl (81-97); MEAN CORPUSCULAR HEMOGLOBIN 30.6 pg (27-33); MEAN CORPUSCULAR HGB CONC 33.1 g/dl (32-36); MONO % 7.8 % (0-9); PLATELET COUNT 288 K/uL (130-400); RED BLOOD COUNT 5.09 M/uL (4.40-5.70); RED CELL DISTRIBUTION WIDTH 14.9 % (11.5-14.5); WHITE BLOOD COUNT W/O DIFF 10.4 K/uL (4.2-12.2)
[2018-01-30 13:27] LABS: BLOOD UREA NITROGEN 19 mg/dL (8-23); CREATININE 1.3 mg/dL (0.7-1.2); EST GLOMERULAR FILTRATION RATE 57 mL/min
[2018-01-30 13:28] LABS: TOTAL PROTEIN 7.2 g/dL (6.6-8.7)
[2018-01-30 13:30] LABS: GLUCOSE,RANDOM 122 mg/dL (74-109)
[2018-01-30 13:33] LABS: ALBUMIN 4.5 g/dL (4.0-5.0); ALKALINE PHOSPHATASE 75 U/L (40-129); ALT/SGPT 27 U/L (<41); AST/SGOT 20 U/L (10.0-50.0); LIPASE 28 U/L (13-60)
[2018-01-30 13:34] LABS: BILIRUBIN,DIRECT < 0.2 mg/dL (0-0.3)
[2018-01-30 14:31] LABS: URINE APPEARANCE CLEAR; URINE BILIRUBIN NEGATIVE (NEGATIVE); URINE BLOOD NEGATIVE (NEGATIVE); URINE COLOR YELLOW; URINE GLUCOSE (UA) NEGATIVE (NEGATIVE); URINE KETONE NEGATIVE (NEGATIVE); URINE LEUKOCYTE ESTERASE NEGATIVE (NEGATIVE); URINE NITRITE NEGATIVE (NEGATIVE); URINE PROTEIN NEGATIVE (NEGATIVE); URINE UROBILINOGEN 0.2 E.U./dL (0.20 - 1.00)
--- NOTE | 2018-02-01 08:27 | CT SCAN REPORT ---
EXAM: CT OF THE ABDOMEN AND PELVIS WITHOUT CONTRAST HISTORY: RIGHT LOWER QUADRANT PAIN. TECHNIQUE: Sequential axial images were obtained from the diaphragms through the ischiorectal fossa without intravenous or oral contrast administration. FINDINGS: The visualized lung bases appear normal. There is fatty infiltration of the liver. There is focal sparing around the gallbladder fossa. No gallstones or ductal dilatation. The pancreas and spleen appear normal. The adrenal glands appear normal. There are nonobstructing calculi in both kidneys. No CT findings suggestive of obstructive uropathy. There is a posterior diverticulum in the urinary bladder. There is a fat containing umbilical hernia. The appendix is visualized and appears normal. The small bowel appears normal. There is colonic diverticulosis without evidence of diverticulitis. There is postop abdominal aortic aneurysm surgical repair. A stent graft is in place. IMPRESSION: 1. FATTY INFILTRATION OF THE LIVER WITH FOCAL SPARING AROUND THE GALLBLADDER FOSSAS. 2. POSTOP ABDOMINAL AORTIC ANEURYSM SURGICAL REPAIR. 3. SMALL POSTERIOR BLADDER DIVERTICULUM. 4. COLONIC DIVERTICULOSIS WITHOUT EVIDENCE OF DIVERTICULITIS. THE APPENDIX IS VISUALIZED AND APPEARS NORMAL. 5. FAT CONTAINING UMBILICAL HERNIA. JOB NUMBER: [id number] [facility]
--- NOTE | 2018-02-01 08:33 | CT SCAN REPORT ---
EXAM: CT OF THE ABDOMEN AND PELVIS WITH CONTRAST HISTORY: ABDOMINAL PAIN, STATUS POST ENDOVASCULAR ABDOMINAL AORTIC ANEURYSM REPAIR. TECHNIQUE: CT of the abdomen and pelvis was obtained with contrast. FINDINGS: There is a small blush of contrast material to the right side of the distal abdominal aortic stent graft. Findings are suggestive of a small endoleak. There is fatty infiltration of the liver. No gallstones or ductal dilatation. The pancreas and spleen appear normal. The kidneys are adequately perfused. The adrenal glands appear normal. The pancreas and spleen appear normal. The small and large bowel appears normal. There is degenerative change of the lumbar spine. IMPRESSION: 1. THERE IS A SMALL BLUSH OF CONTRAST MATERIAL ON THE RIGHT SIDE OF THE DISTAL ABDOMINAL STENT GRAFT SUSPICIOUS FOR ENDOLEAK. THE KIDNEYS ARE ADEQUATELY PERFUSED. THERE ARE SMALL CYSTIC LESIONS IN BOTH KIDNEYS. JOB NUMBER: [id number] MTDD
== END 2018-01-30 17:13 | disposition short-term general hospital (02) ==
LOC: ER 12:16
DX: T82.330A Leakage of aortic (bifurcation) graft (replacement), initial encounter (principal); I71.4 Abdominal aortic aneurysm, without rupture; R10.31 Right lower quadrant pain; J44.9 Chronic obstructive pulmonary disease, unspecified; Y71.2 Prosthetic and other implants, materials and accessory cardiovascular devices associated with adverse incidents; Y83.2 Surgical operation with anastomosis, bypass or graft as the cause of abnormal reaction of the patient, or of later complication, without mention of misadventure at the time of the procedure; Z87.891 Personal history of nicotine dependence; Z87.442 Personal history of urinary calculi
CPT/HCPCS: 74176; 74177; 80048; 80076; 81003; 83690; 85025; 93005; 93010; 99285

== ENCOUNTER 2018-03-17 11:40 | Emergency (ER) | payer MEDICARE, BC ==
[2018-03-17] MEDS ORDERED: IPRATROPIUM/ALBUTEROL (0.5MG/3MG) NEB INH ONE (13:00)
[2018-03-17] MEDS ORDERED: METHYLPREDNISOLONE PF 125MG/VIAL IVP ONE (13:00)
[2018-03-17 13:19] LABS: BASO % 0.3 % (0-6); EOS % 0.7 % (0-6); HEMATOCRIT 45.6 % (42.0-52.0); HEMOGLOBIN 15.1 gm/dl (14.0-18.0); LYMPH % 15.6 % (16-45); MEAN CELL VOLUME 94.4 fl (81-97); MEAN CORPUSCULAR HEMOGLOBIN 31.3 pg (27-33); MEAN CORPUSCULAR HGB CONC 33.1 g/dl (32-36); MEAN PLATELET VOLUME 9.7 fl (7.4-10.4); MONO % 10.4 % (0-9); PLATELET COUNT 232 K/uL (130-400); RED BLOOD COUNT 4.83 M/uL (4.40-5.70); RED CELL DISTRIBUTION WIDTH 13.8 % (11.5-14.5); WHITE BLOOD COUNT W/O DIFF 7.4 K/uL (4.2-12.2)
[2018-03-17 13:33] LABS: BLOOD UREA NITROGEN 16 mg/dL (8-23); CREATININE 1.1 mg/dL (0.7-1.2); EST GLOMERULAR FILTRATION RATE > 60 mL/min
[2018-03-17 13:34] LABS: TOTAL PROTEIN 6.9 g/dL (6.6-8.7)
[2018-03-17 13:36] LABS: GLUCOSE,RANDOM 101 mg/dL (74-109)
[2018-03-17 13:39] LABS: ALB/GLOB RATIO 1.6 (1.1-1.8); ALBUMIN 4.2 g/dL (4.0-5.0); ALKALINE PHOSPHATASE 67 U/L (40-129); ALT/SGPT 36 U/L (<41); AST/SGOT 24 U/L (10.0-50.0)
[2018-03-17 13:41] LABS: NTpro B-NATRIURETIC PEPTIDE 49.62 pg/mL (<450)
--- NOTE | 2018-03-17 14:35 | Emergency Department Record ---
History of Present Illness - General Chief Complaint: Difficulty Breathing Stated Complaint: GOMEZ/COPD/ASTHMA Time Seen by Provider: 03/17/18 12:42 Source: Patient Mode of Arrival: Ambulatory Limitations: No limitations - History of Present Illness Initial Comments: pt has been increasingly sob the last few days. no cp. he has had increased swelling of legs MD Complaint: Cough, Shortness of breath Onset/Timin -: Days(s) Severity: Moderate Severity scale (1-10): 1 Improves With: Rest Worsens With: Exertion Known History Of: Congestive heart failure, COPD Associated Symptoms: Cough, Sputum production Treatments Prior to Arrival: None - Related Data Home Medications Medication Instructions Recorded Confirmed Last Taken Mepolizumab [Nucala] 100 mg SQ MONTHLY 03/17/18 03/17/18 3 Weeks Ago ~02/24/18 Previous Rx's Medication Instructions Recorded Prednisone [Prednisone 20Mg] 20 mg PO Q12HR #8 tab 03/17/18 Allergies Allergy/AdvReac Type Severity Reaction Status Date / Time No Known Drug Allergies Allergy Verified 03/17/18 12:34 Travel Screening - Travel/Exposure Within Last 30 Days Have you traveled within the last 30 days?: No - Travel/Exposure Within Last Year Have you traveled outside the [place] in the last year?: No - Additonal Travel Details Have you been exposed to anyone with a communicable illness?: No - Travel Symptoms Symptom Screening: None Review of Systems Reviewed: No additional complaints except as noted below Constitutional: Reports: As per HPI. Denies: Chills, Fever, Malaise, Night sweats, Weakness, Weight change Eyes: Reports: As per HPI. Denies: Eye discharge, Eye pain, Photophobia, Vision change ENT: Reports: As per HPI. Denies: Congestion, Dental pain, Ear pain, Epistaxis , Hearing loss, Throat pain Respiratory: Reports: As per HPI, Cough, Dyspnea. Denies: Hemoptysis, Stridor, Wheezes Cardiovascular: Reports: As per HPI. Denies: Arrhythmia, Chest pain, Dyspnea on exertion, Edema, Murmurs, Orthopnea, Palpitations, Paroxysmal nocturnal dyspnea, Rheumatic Fever, Syncope Endocrine: Reports: As per HPI. Denies: Fatigue, Heat or cold intolerance, Polydipsia, Polyuria Gastrointestinal: Reports: As per HPI. Denies: Abdominal pain, Constipation, Diarrhea, Hematemesis, Hematochezia, Melena, Nausea, Vomiting Genitourinary: Reports: As per HPI. Denies: Dysuria, Frequency, Hematuria, Incontinence, Retention, Testicular pain, Testicular mass, Urgency Musculoskeletal: Reports: As per HPI. Denies: Arthralgia, Back pain, Gout, Joint swelling, Myalgia, Neck pain Skin: Reports: As per HPI. Denies: Bruising, Change in color, Change in hair/ nails, Lesions, Pruritus, Rash Neurological: Reports: As per HPI. Denies: Abnormal gait, Confusion, Headache, Numbness, Paresthesias, Seizure, Tingling, Tremors, Vertigo, Weakness Psychiatric: Reports: As per HPI. Denies: Anxiety, Auditory hallucinations, Depression, Homicidal thoughts, Suicidal thoughts, Visual hallucinations Hematological/Lymphatic: Reports: As per HPI. Denies: Anemia, Blood Clots, Easy bleeding, Easy bruising, Swollen glands Past Medical History - SOCIAL HISTORY Smoking Status: Former smoker Alcohol Use: None Drug Use: None - RESPIRATORY Hx Respiratory Disorders: Yes Hx Asthma: Yes Hx Bronchitis: Yes Hx COPD: Yes Hx Pneumonia: Yes (long ago) - CARDIOVASCULAR Hx Cardio Disorders: Yes Hx Cardiac Cath: Yes 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 - NEURO Hx Neuro Disorders: No - GI Hx GI Disorders: Yes Hx Reflux: Yes - Hx Genitourinary Disorders: Yes Hx Kidney Stones: Yes (many) Hx Prostate Problems: Yes (on Flomax "as needed") Hx Renal Disease: No - ENDOCRINE Hx Endocrine Disorders: Yes Hx Thyroid Disease: Yes - MUSCULOSKELETAL Hx Musculoskeletal Disorders: Yes Hx Arthritis: Yes Hx Back Injury: Yes (10 yrs ago fell on my back-rib "out of place") - PSYCH Hx Psych Problems: Yes Hx Anxiety: Yes (no meds) - HEMATOLOGY/ONCOLOGY Hx Hematology/Oncology Disorders: No Family Medical History Any Significant Family History?: Yes Hx Heart Disease: Father Physical Exam - General General Appearance: Alert, Oriented x3, Cooperative, Mild distress - Head Head exam: Normal inspection - Eye Eye exam: Normal appearance, PERRL, EOMI Pupils: Normal accommodation - ENT ENT exam: Normal exam, Mucous membranes moist, Normal external ear exam, Normal orophraynx Ear exam: Normal external inspection. negative: External canal tenderness Nasal Exam: Normal inspection. negative: Discharge, Sinus tenderness Mouth exam: Normal external inspection, Tongue normal Teeth exam: Normal inspection. negative: Dental caries Throat exam: Normal inspection. negative: Tonsillar erythema, Tonsillar exudate - Neck Neck exam: Normal inspection, Full ROM. negative: Tenderness - Respiratory Respiratory exam: Normal lung sounds bilaterally. negative: Respiratory distress - Cardiovascular Cardiovascular Exam: Regular rate, Normal rhythm, Normal heart sounds - GI/Abdominal GI/Abdominal exam: Soft, Normal bowel sounds. negative: Tenderness - Rectal Rectal exam: Deferred - exam: Deferred - Extremities Extremities exam: Normal inspection, Full ROM, Normal capillary refill. negative: Tenderness - Back Back exam: Reports: Normal inspection, Full ROM. Denies: Muscle spasm, Rash noted, Tenderness - Neurological Neurological exam: Alert, CN II-XII intact, Normal gait, Oriented X3 - Psychiatric Psychiatric exam: Normal affect, Normal mood - Skin Skin exam: Dry, Intact, Normal color, Warm Course Vital Signs 03/17/18 03/17/18 03/17/18 12:18 13:05 14:06 Temperature 97.7 F Pulse Rate 63 68 Pulse Rate [ 61 Pulse Ox Probe] Respiratory 20 18 18 Rate Blood Pressure 143/87 Blood Pressure 137/78 [Left Arm] Pulse Ox 96 97 - Reevaluation(s) Reevaluation #1: 03/17/18 14:35 pt feels much better Medical Decision Making - Lab Data Result diagrams: 03/17/18 13:14 03/17/18 13:14 Lab Results 03/17/18 03/17/18 03/17/18 Range/Units 13:02 13:14 13:14 WBC 7.4 (4.2-12.2) K/uL RBC 4.83 (4.40-5.70) M/uL Hgb 15.1 (14.0-18.0) gm/dl Hct 45.6 (42.0-52.0) % MCV 94.4 (81-97) fl MCH 31.3 (27-33) pg MCHC 33.1 (32-36) g/dl RDW 13.8 (11.5-14.5) % Plt Count 232 (130-400) K/uL MPV 9.7 (7.4-10.4) fl Gran % 73.0 (47-80) % Lymphocytes % 15.6 L (16-45) % Monocytes % 10.4 H (0-9) % Eosinophils % 0.7 (0-6) % Basophils % 0.3 (0-6) % Sodium 140 (136-145) mmol/L Potassium 4.2 (3.4-4.5) mmol/L Chloride 100 (98-107) mmol/L Carbon Dioxide 26.0 (22-29) mmol/L Anion Gap 14.0 (7-16) BUN 16 (8-23) mg/dL Creatinine 1.1 (0.7-1.2) mg/dL Estimated GFR > 60 mL/min Random Glucose 101 (74-109) mg/dL Calcium 9.6 (8.8-10.2) mg/dL Total Bilirubin 0.60 (0.2-1.0) mg/dL AST 24 (10.0-50.0) U/L ALT 36 (<41) U/L Alkaline Phosphatase 67 (40-129) U/L Troponin T Cancelled < 0.010 NT-Pro-B Natriuret Pep 49.62 (<450) pg/mL Total Protein 6.9 (6.6-8.7) g/dL Albumin 4.2 (4.0-5.0) g/dL Globulin 2.7 (1.4-4.8) gm/dL Albumin/Globulin Ratio 1.6 (1.1-1.8) Disposition Disposition: Discharge Clinical Impression: COPD with acute exacerbation Disposition: Home, Self-Care Condition: (1) Good Instructions: COPD (Chronic Obstructive Pulmonary Disease) (ED), Dyspnea Scale and Exercise (ED) Additional Instructions: follow up with family doctor. return sooner if worse. Prescriptions: Prednisone [Prednisone 20Mg] 20 mg PO Q12HR #8 tab Quality - Quality Measures Quality Measures: N/A - Blood Pressure Screening Does Patient Have Any of the Following: No Blood Pressure Classification: Pre-Hypertensive BP Reading Systolic Measurement: 143 Diastolic Measurement: 87 Screening for High Blood Pressure: < Pre-Hypertensive BP, F/U Documented > [ G8950] Pre-Hypertensive Follow-up Interventions: Follow-up with rescreen every year.
--- NOTE | 2018-03-18 14:47 | RADIOLOGY REPORT ---
EXAM: CHEST, TWO VIEWS HISTORY: DIFFICULTY IN BREATHING. TECHNIQUE: Frontal and lateral views of the chest were performed. FINDINGS: The heart size is normal. No pulmonary vascular congestion. No infiltrate or pleural effusion. The osseous structures are normal. IMPRESSION: NEGATIVE CHEST EXAMINATION. JOB NUMBER: [id number] MTDD
== END 2018-03-17 15:00 | disposition home or self-care (01) ==
LOC: ER 11:40
DX: J44.1 Chronic obstructive pulmonary disease with (acute) exacerbation (principal); R06.02 Shortness of breath; I50.9 Heart failure, unspecified; I10 Essential (primary) hypertension; Z87.891 Personal history of nicotine dependence
CPT/HCPCS: 71046; 80053; 83880; 84484; 85025; 94640; 96374; 99284; J2930

== ENCOUNTER 2018-04-02 06:39 | Emergency (ER) | payer MEDICARE, BC ==
[2018-04-02] MEDS ORDERED: IPRATROPIUM/ALBUTEROL (0.5MG/3MG) NEB INH ONE ×2 (06:44→07:00)
[2018-04-02] MEDS ORDERED: PREDNISONE 20 MG TAB PO ONE (07:01)
--- NOTE | 2018-04-02 07:06 | Emergency Department Record ---
History of Present Illness - General Chief Complaint: Shortness of breath Stated Complaint: SHORT OF BREATH Time Seen by Provider: 04/02/18 06:49 Source: Patient Mode of Arrival: Ambulatory Limitations: No limitations - History of Present Illness Initial Comments: Pt to ED alone from home with one week of coughing with chacko to yellow sputum. No fever or chills, no CP. No N/V. Pt with hx of similar in past - used nebulizer at home with some improvement. No recent steroid use. Pt states he has hx of "asthmatic bronchitis". No prior medical evaluation for this episode. Complaint: Cough Onset/Timin -: Days(s) Known History Of: Asthma, COPD Associated Symptoms: Cough, Sputum production Treatments Prior to Arrival: Bronchodilator - Related Data Previous Rx's Medication Instructions Recorded Prednisone [Prednisone 20Mg] 20 mg PO Q12HR #8 tab 03/17/18 Azithromycin [Zithromax] 250 mg PO DAILY 5 Days #6 tablet 04/02/18 Prednisone [Prednisone 20Mg] 40 mg PO DAILY 4 Days #8 tab 04/02/18 Allergies Allergy/AdvReac Type Severity Reaction Status Date / Time No Known Drug Allergies Allergy Verified 03/17/18 12:34 Travel Screening - Travel/Exposure Within Last 30 Days Have you traveled within the last 30 days?: No - Travel Symptoms Symptom Screening: None Review of Systems Constitutional: Denies: Chills, Fever, Night sweats Eyes: Denies: Eye discharge, Photophobia ENT: Reports: Congestion. Denies: Ear pain, Throat pain Respiratory: Reports: As per HPI, Cough. Denies: Dyspnea, Wheezes Cardiovascular: Denies: Arrhythmia, Chest pain, Palpitations, Syncope Endocrine: Denies: Fatigue Gastrointestinal: Denies: Abdominal pain, Diarrhea, Nausea, Vomiting Genitourinary: Denies: Dysuria Musculoskeletal: Denies: Back pain Neurological: Denies: Abnormal gait, Headache Psychiatric: Denies: Anxiety Hematological/Lymphatic: Denies: Anemia Past Medical History - SOCIAL HISTORY Smoking Status: Former smoker - RESPIRATORY Hx Respiratory Disorders: Yes Hx Asthma: Yes Hx Bronchitis: Yes Hx COPD: Yes Hx Pneumonia: Yes (long ago) - CARDIOVASCULAR Hx Cardio Disorders: Yes Hx Cardiac Cath: Yes 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 - NEURO Hx Neuro Disorders: No - GI Hx GI Disorders: Yes Hx Reflux: Yes - Hx Genitourinary Disorders: Yes Hx Kidney Stones: Yes (many) Hx Prostate Problems: Yes (on Flomax "as needed") Hx Renal Disease: No - ENDOCRINE Hx Endocrine Disorders: Yes Hx Thyroid Disease: Yes - MUSCULOSKELETAL Hx Musculoskeletal Disorders: Yes Hx Arthritis: Yes Hx Back Injury: Yes (10 yrs ago fell on my back-rib "out of place") - PSYCH Hx Psych Problems: Yes Hx Anxiety: Yes (no meds) - HEMATOLOGY/ONCOLOGY Hx Hematology/Oncology Disorders: No Family Medical History Any Significant Family History?: Yes Hx Heart Disease: Father Physical Exam - General General Appearance: Alert, Oriented x3, Cooperative, No acute distress - Head Head exam: Atraumatic (Speach is easy without labored breathing) - Eye Eye exam: Normal appearance, PERRL - ENT ENT exam: Normal exam, Mucous membranes moist, Normal external ear exam, Normal orophraynx, TM's normal bilaterally - Neck Neck exam: Normal inspection, Full ROM. negative: Tenderness - Respiratory Respiratory exam: Normal lung sounds bilaterally. negative: Prolonged expiratory, Respiratory distress, Rhonchi, Wheezes - Cardiovascular Cardiovascular Exam: Regular rate, Normal rhythm, Normal heart sounds - GI/Abdominal GI/Abdominal exam: Soft, Normal bowel sounds. negative: Rebound, Tenderness - Extremities Extremities exam: Normal inspection, Full ROM. negative: Pedal edema, Tenderness - Back Back exam: Reports: Normal inspection - Neurological Neurological exam: Alert, Normal gait, Oriented X3 - Psychiatric Psychiatric exam: Normal affect, Normal mood - Skin Skin exam: Normal color. negative: Rash Course Vital Signs 04/02/18 06:42 Temperature 97.5 F L Pulse Rate [ 79 Pulse Ox Probe] Respiratory 24 Rate Blood Pressure 186/120 [Left Arm] Pulse Ox 96 - Reevaluation(s) Reevaluation #1: 04/02/18 07:05 seen and examined - Sherine in ED. CXR ordered. Prednisone po. Reevaluation #2: 04/02/18 07:48 Pt with hx of HTN has not taken meds this AM. Will take on arrival home Medical Decision Making - Data Complexity MDM Data: X-Ray Ordered and/or Reviewed - Radiology Data Radiology results: Image reviewed -: Radiology Exam Interpreted by Myself Disposition Disposition: Discharge Clinical Impression: Bronchitis Disposition: Home, Self-Care Condition: (2) Stable Instructions: Acute Bronchitis (ED) Additional Instructions: Take meds as ordered. Use your nebulizers as previously instructed. Follow with your doctor in 2-3 days or return here at any time as needed. Prescriptions: Azithromycin [Zithromax] 250 mg PO DAILY 5 Days #6 tablet Prednisone [Prednisone 20Mg] 40 mg PO DAILY 4 Days #8 tab Forms: Patient Portal Access Quality - Quality Measures Quality Measures: N/A - Blood Pressure Screening Does Patient Have Any of the Following: No Blood Pressure Classification: Hypertensive Reading Systolic Measurement: 186 Diastolic Measurement: 120 Screening for High Blood Pressure: Patient Exclusion, Hx of HTN [G9744]
--- NOTE | 2018-04-03 09:38 | RADIOLOGY REPORT ---
EXAM: CHEST, TWO VIEWS HISTORY: DIFFICULTY BREATHING. TECHNIQUE: Frontal and lateral views of the chest were performed. Comparison: 03/17/18. FINDINGS: Postop sternotomy wires. Atrial appendage in place. The heart size is normal. No infiltrate or pleural effusion. The osseous structures are normal. IMPRESSION: NO ACUTE DISEASE PROCESS. JOB NUMBER: [id number] MTDD
== END 2018-04-02 07:53 | disposition home or self-care (01) ==
LOC: ER 06:39
DX: J20.9 Acute bronchitis, unspecified (principal); R06.02 Shortness of breath; J44.9 Chronic obstructive pulmonary disease, unspecified; I10 Essential (primary) hypertension; Z87.891 Personal history of nicotine dependence
CPT/HCPCS: 71046; 94640; 99283; 99284; J7512

== ENCOUNTER 2018-04-08 02:44 | Emergency (ER) | payer MEDICARE, BC ==
[2018-04-08] MEDS ORDERED: IPRATROPIUM/ALBUTEROL (0.5MG/3MG) NEB INH ONE (03:05)
--- NOTE | 2018-04-08 03:09 | Emergency Department Record ---
History of Present Illness - General Chief Complaint: Asthma Stated Complaint: GOMEZ Time Seen by Provider: 04/08/18 02:58 Source: Patient Mode of Arrival: Ambulatory Limitations: No limitations - History of Present Illness Initial Comments: The patient is here due to feeling SOB this AM similar to his previous asthma attacks. He denies any CP, sweating, nausea or back pain but just feels like his asthma is acting up. The patient has this problem frequently and was just in the ER 6 days ago for the same issues. He was discharged on Zithromax and Prednisone but is not done with those scripts. MD Complaint: "Asthma attack", Shortness of breath Onset/Timin -: Days(s) Asthma History: History of prior ED visit Severity: Worse than usual Context: None known Treatments Prior to Arrival: Inhaled bronchodilator - Related Data Current Asthma Therapy: Inhaled bronchodilator Previous Rx's Medication Instructions Recorded Prednisone [Prednisone 20Mg] 40 mg PO DAILY #6 tab 04/08/18 Allergies Allergy/AdvReac Type Severity Reaction Status Date / Time No Known Drug Allergies Allergy Verified 03/17/18 12:34 Travel Screening - Travel/Exposure Within Last 30 Days Have you traveled within the last 30 days?: No - Travel Symptoms Symptom Screening: None Review of Systems Constitutional: Denies: Chills, Fever Eyes: Denies: Eye discharge ENT: Denies: Congestion Respiratory: Reports: Cough, Dyspnea, Wheezes. 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 - NEURO Hx Neuro Disorders: No - GI Hx GI Disorders: Yes Hx Reflux: Yes - Hx Genitourinary Disorders: Yes Hx Kidney Stones: Yes (many) Hx Prostate Problems: Yes (on Flomax "as needed") Hx Renal Disease: No - ENDOCRINE Hx Endocrine Disorders: Yes Hx Thyroid Disease: Yes - MUSCULOSKELETAL Hx Musculoskeletal Disorders: Yes Hx Arthritis: Yes Hx Back Injury: Yes (10 yrs ago fell on my back-rib "out of place") - PSYCH Hx Psych Problems: Yes Hx Anxiety: Yes (no meds) - HEMATOLOGY/ONCOLOGY Hx Hematology/Oncology Disorders: No Family Medical History Any Significant Family History?: Yes Hx Heart Disease: Father Physical Exam - General General Appearance: Alert, Oriented x3, Cooperative, No acute distress - Head Head exam: Atraumatic, Normocephalic, Normal inspection - Eye Eye exam: Normal appearance, PERRL - ENT Throat exam: Other (The patient's Uvula does appear boggy and mildly edematous. ). negative: Normal inspection, Tonsillar erythema, Tonsillomegaly, Tonsillar exudate - Neck Neck exam: Normal inspection, Full ROM. negative: Tenderness - Respiratory Respiratory exam: Normal lung sounds bilaterally (The patient is speaking in full sentences with no difficulty.). negative: Accessory muscle use, Rales, Respiratory distress, Rhonchi, Stridor, Wheezes - Cardiovascular Cardiovascular Exam: Regular rate, Normal rhythm, Normal heart sounds - GI/Abdominal GI/Abdominal exam: Soft, Normal bowel sounds. negative: Tenderness - Extremities Extremities exam: Normal inspection, Full ROM, Normal capillary refill. negative: Tenderness - Neurological Neurological exam: Alert. negative: Motor sensory deficit Course Vital Signs 04/08/18 02:49 Temperature 97.9 F Pulse Rate [ 67 Pulse Ox Probe] Respiratory 20 Rate Blood Pressure 199/107 [Left Arm] Pulse Ox 96 - Reevaluation(s) Reevaluation #1: The patient is doing better after the neb tx and would like to leave. I did discuss the Uvula edema and the need to continue the oral steroids for a short time and the patient will comply. I also did recommend doing an EKG on the patient and lab work to check out his heart but the patient is refusing. He understands the risks of NOT evaluating his heart further while he is here and accepts the risks. I did explain the risks are that he could leave and have an CT, stroke, become disabled and even and the patient does accept the risks. The patient's BP also is improved and he will be taking his medicines in a few hours. 04/08/18 03:40 Disposition Disposition: Discharge Clinical Impression: Dyspnea Qualifiers: Dyspnea type: unspecified Qualified Code(s): R06.00 - Dyspnea, unspecified Disposition: Home, Self-Care Condition: (2) Stable Additional Instructions: Please continue your regular medicines and restart the Prednisone for 3 more days after today. Please see your doctor next week for recheck and return to the ER for any worsening symptoms. Prescriptions: Prednisone [Prednisone 20Mg] 40 mg PO DAILY #6 tab Forms: Patient Portal Access Time of Disposition: 03:39 Quality - Quality Measures Quality Measures: N/A - Blood Pressure Screening View Details: Yes Does Patient Have Any of the Following: Active Dx of HTN Blood Pressure Classification: Hypertensive Reading Systolic Measurement: 178 Diastolic Measurement: 101 Screening for High Blood Pressure: Patient Exclusion, Hx of HTN [G9744]
[2018-04-08] MEDS ORDERED: PREDNISONE 20 MG TAB PO ONE (03:37)
== END 2018-04-08 03:53 | disposition home or self-care (01) ==
LOC: ER 02:44
DX: R06.00 Dyspnea, unspecified (principal); K13.79 Other lesions of oral mucosa; I10 Essential (primary) hypertension; J44.9 Chronic obstructive pulmonary disease, unspecified; Z87.891 Personal history of nicotine dependence
CPT/HCPCS: 99283; 99284; 94640; J7512

== ENCOUNTER 2018-04-17 01:55 | Emergency (ER) | payer MEDICARE, BC ==
--- NOTE | 2018-04-17 02:13 | Emergency Department Record ---
History of Present Illness - General Chief Complaint: Shortness of breath Stated Complaint: NOT FEELING WELL Time Seen by Provider: 04/17/18 02:11 Source: Patient Mode of Arrival: Ambulatory - History of Present Illness Initial Comments: The patient states that he work up from sleep around 0200 feeling like he couldn 't breathe. This is his 4th visit in the past month for this same thing. He was here on the , the , and the 08 of April for similar symptoms. He had CXR's which were unchanged without abnormality, and normal blood work. He denies chest pain, pressure tightness, or back pain. No fevers or chills, nausea, abdominal pain. He took his Ventolin inhaler at home but still felt he couldn't breathe. MD Complaint: Shortness of breath Onset/Timin -: Month(s) Improves With: Nothing Known History Of: COPD Treatments Prior to Arrival: Bronchodilator - Related Data Allergies Allergy/AdvReac Type Severity Reaction Status Date / Time No Known Drug Allergies Allergy Verified 03/17/18 12:34 Travel Screening - Travel/Exposure Within Last 30 Days Have you traveled within the last 30 days?: No - Travel Symptoms Symptom Screening: None Review of Systems Reviewed: No additional complaints except as noted below Constitutional: Reports: As per HPI. Denies: Chills, Fever, Malaise, Night sweats, Weakness, Weight change Eyes: Reports: As per HPI. Denies: Eye discharge, Eye pain, Photophobia, Vision change ENT: Reports: As per HPI. Denies: Congestion, Dental pain, Ear pain, Epistaxis , Hearing loss, Throat pain Respiratory: Reports: As per HPI. Denies: Cough, Dyspnea, Hemoptysis, Stridor, Wheezes Cardiovascular: Reports: As per HPI. Denies: Arrhythmia, Chest pain, Dyspnea on exertion, Edema, Murmurs, Orthopnea, Palpitations, Paroxysmal nocturnal dyspnea, Rheumatic Fever, Syncope Endocrine: Reports: As per HPI. Denies: Fatigue, Heat or cold intolerance, Polydipsia, Polyuria Gastrointestinal: Reports: As per HPI. Denies: Abdominal pain, Constipation, Diarrhea, Hematemesis, Hematochezia, Melena, Nausea, Vomiting Genitourinary: Reports: As per HPI. Denies: Dysuria, Frequency, Hematuria, Incontinence, Retention, Testicular pain, Testicular mass, Urgency Musculoskeletal: Reports: As per HPI. Denies: Arthralgia, Back pain, Gout, Joint swelling, Myalgia, Neck pain Skin: Reports: As per HPI. Denies: Bruising, Change in color, Change in hair/ nails, Lesions, Pruritus, Rash Neurological: Reports: As per HPI. Denies: Abnormal gait, Confusion, Headache, Numbness, Paresthesias, Seizure, Tingling, Tremors, Vertigo, Weakness Psychiatric: Reports: As per HPI. Denies: Anxiety, Auditory hallucinations, Depression, Homicidal thoughts, Suicidal thoughts, Visual hallucinations Hematological/Lymphatic: Reports: As per HPI. 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 - NEURO Hx Neuro Disorders: No - GI Hx GI Disorders: Yes Hx Reflux: Yes - Hx Genitourinary Disorders: Yes Hx Kidney Stones: Yes (many) Hx Prostate Problems: Yes (on Flomax "as needed") Hx Renal Disease: No - ENDOCRINE Hx Endocrine Disorders: Yes Hx Thyroid Disease: Yes - MUSCULOSKELETAL Hx Musculoskeletal Disorders: Yes Hx Arthritis: Yes Hx Back Injury: Yes (10 yrs ago fell on my back-rib "out of place") - PSYCH Hx Psych Problems: Yes Hx Anxiety: Yes (no meds) - HEMATOLOGY/ONCOLOGY Hx Hematology/Oncology Disorders: No Family Medical History Any Significant Family History?: Yes Hx Heart Disease: Father Physical Exam - General General Appearance: Alert, Oriented x3, Cooperative, No acute distress, Anxious (suspect some anxiety as themore he converses, the more he says his breathing improves as he chats with the staff. ) - Head Head exam: Normal inspection - Eye Eye exam: Normal appearance, PERRL Pupils: Normal accommodation - ENT ENT exam: Normal exam, Mucous membranes moist, Normal external ear exam, Normal orophraynx, TM's normal bilaterally Ear exam: Normal external inspection. negative: External canal tenderness Nasal Exam: Normal inspection. negative: Discharge, Sinus tenderness Mouth exam: Normal external inspection, Tongue normal Teeth exam: Normal inspection. negative: Dental caries Throat exam: Normal inspection. negative: Tonsillar erythema, Tonsillar exudate - Neck Neck exam: Normal inspection, Full ROM. negative: Tenderness - Respiratory Respiratory exam: Normal lung sounds bilaterally. negative: Respiratory distress - Cardiovascular Cardiovascular Exam: Regular rate, Normal rhythm, Normal heart sounds - GI/Abdominal GI/Abdominal exam: Soft, Normal bowel sounds. negative: Tenderness - Rectal Rectal exam: Deferred - exam: Deferred - Extremities Extremities exam: Normal inspection, Full ROM, Normal capillary refill. negative: Tenderness - Back Back exam: Reports: Normal inspection, Full ROM. Denies: Muscle spasm, Rash noted, Tenderness - Neurological Neurological exam: Alert, Normal gait, Oriented X3, Reflexes normal - Psychiatric Psychiatric exam: Normal affect, Normal mood - Skin Skin exam: Dry, Intact, Normal color, Warm Course Vital Signs 04/17/18 02:01 Temperature 97.4 F L Pulse Rate [ 84 Pulse Ox Probe] Respiratory 24 Rate Blood Pressure 175/100 [Left Arm] Pulse Ox 93 L - Reevaluation(s) Reevaluation #1: 04/17/18 02:56 The patient states he feels much better after the nebulizer and is ready to go home. He agrees with not getting labs or CXR tonight as he has had multiple studies in the past month here all which were normal. 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 Disposition Disposition: Discharge Clinical Impression: COPD (chronic obstructive pulmonary disease) Qualifiers: COPD type: unspecified COPD Qualified Code(s): J44.9 - Chronic obstructive pulmonary disease, unspecified Disposition: Home, Self-Care Condition: (1) Good Instructions: Dyspnea (ED) Additional Instructions: Continue present meds. Follow up as needed with Dr. Villavicencio as previously arranged. Quality - Quality Measures Quality Measures: N/A - Blood Pressure Screening Does Patient Have Any of the Following: No Blood Pressure Classification: Hypertensive Reading Systolic Measurement: 175 Diastolic Measurement: 100 Screening for High Blood Pressure: Patient Exclusion, Hx of HTN [G9744]
[2018-04-17] MEDS ORDERED: IPRATROPIUM/ALBUTEROL (0.5MG/3MG) NEB INH ONE (02:25)
== END 2018-04-17 03:14 | disposition home or self-care (01) ==
LOC: ER 01:55
DX: J44.9 Chronic obstructive pulmonary disease, unspecified (principal); R06.02 Shortness of breath; Z87.891 Personal history of nicotine dependence
CPT/HCPCS: 94640; 99283

== ENCOUNTER 2018-04-21 21:47 | Observation (INO) | payer MEDICARE, BC ==
[2018-04-21] MEDS ORDERED: ASPIRIN 81 MG CHEWABLE TABLET PO ONE (21:51)
--- NOTE | 2018-04-21 21:55 | Emergency Department Record ---
History of Present Illness - General Chief Complaint: Hypertension Stated Complaint: CHEST PAIN Time Seen by Provider: 04/21/18 21:50 Source: Patient Mode of Arrival: Ambulatory Limitations: No limitations - History of Present Illness Initial Comments: 73 yo male presents to ED for evaluation of chest discomfort symptoms earlier today that have now resolved. Patient describes his symptoms as "pressure" to the mid-sternal region. Patient reports that he is s/p quadruple bypass surgery with Dr. Kelly, sees Dr. Moreau regularly. Patient denies fevers, chills, or productive cough symptoms. Patient reports that he is pain-free on examination. MD Complaint: Other (Chest discomfort) Onset/Timin -: Days(s) Timing: Unsure Description: Other History of Same: Yes History of Trauma: No Severity: Mild Improves With: Nothing Worsens With: Nothing Associated Symptoms: Denies other symptoms - [place] Coma Scale Eye Response: (4) Open spontaneously Motor Response: (6) Obeys commands Verbal Response: (5) Oriented [place] Total: 15 - Related Data Home Medications Medication Instructions Recorded Confirmed Last Taken Budesonide 1 each INH BID 04/21/18 04/21/18 Unknown Allergies Allergy/AdvReac Type Severity Reaction Status Date / Time No Known Drug Allergies Allergy Verified 03/17/18 12:34 Travel Screening - Travel/Exposure Within Last 30 Days Have you traveled within the last 30 days?: No - Travel Symptoms Symptom Screening: None Review of Systems Constitutional: Denies: Chills, Fever, Malaise, Night sweats Eyes: Denies: Eye discharge, Eye pain ENT: Denies: Congestion, Ear pain, Epistaxis Respiratory: Denies: Cough, Dyspnea Cardiovascular: Reports: Chest pain. Denies: Dyspnea on exertion Endocrine: Denies: Fatigue, Heat or cold intolerance Gastrointestinal: Denies: Abdominal pain, Nausea, Vomiting Genitourinary: Denies: Incontinence, Retention Musculoskeletal: Denies: Arthralgia, Back pain Skin: Denies: Bruising, Change in color Neurological: Denies: Abnormal gait, Confusion, Headache, Seizure Psychiatric: Denies: Anxiety Hematological/Lymphatic: Denies: Anemia, Blood Clots Past Medical History - SOCIAL HISTORY Smoking Status: Former smoker - RESPIRATORY Hx Respiratory Disorders: Yes Hx Asthma: Yes Hx Bronchitis: Yes Hx COPD: Yes Hx Pneumonia: Yes (long ago) - CARDIOVASCULAR Hx Cardio Disorders: Yes Hx Cardiac Cath: Yes 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 - NEURO Hx Neuro Disorders: No - GI Hx GI Disorders: Yes Hx Reflux: Yes - Hx Genitourinary Disorders: Yes Hx Kidney Stones: Yes (many) Hx Prostate Problems: Yes (on Flomax "as needed") Hx Renal Disease: No - ENDOCRINE Hx Endocrine Disorders: Yes Hx Thyroid Disease: Yes - MUSCULOSKELETAL Hx Musculoskeletal Disorders: Yes Hx Arthritis: Yes Hx Back Injury: Yes (10 yrs ago fell on my back-rib "out of place") - PSYCH Hx Psych Problems: Yes Hx Anxiety: Yes (no meds) - HEMATOLOGY/ONCOLOGY Hx Hematology/Oncology Disorders: No Family Medical History Hx Heart Disease: Father Physical Exam - General General Appearance: Alert, Oriented x3, Cooperative, Mild distress Limitations: No limitations - Head Head exam: Atraumatic, Normocephalic, Normal inspection Head exam detail: negative: Abrasion, Contusion, Clark's sign, General tenderness, Hematoma, Laceration - Eye Eye exam: Normal appearance. negative: Conjunctival injection, Periorbital swelling, Periorbital tenderness, Scleral icterus - ENT Ear exam: negative: Auricular hematoma, Auricular trauma Nasal Exam: negative: Active bleeding, Discharge, Dried blood, Foreign body Mouth exam: negative: Drooling, Laceration, Muffled voice, Tongue elevation Throat exam: negative: Tonsillar erythema, Tonsillomegaly, R peritonsillar mass , L peritonsillar mass - Neck Neck exam: Normal inspection. negative: Meningismus, Tenderness - Respiratory Respiratory exam: Normal lung sounds bilaterally. negative: Rales, Respiratory distress, Rhonchi, Stridor - Cardiovascular Cardiovascular Exam: Regular rate, Normal rhythm, Normal heart sounds - GI/Abdominal GI/Abdominal exam: Soft. negative: Rebound, Rigid, Tenderness - Rectal Rectal exam: Deferred - exam: Deferred - Extremities Extremities exam: Normal inspection. negative: Calf tenderness, Pedal edema, Tenderness - Back Back exam: Denies: CVA tenderness (R), CVA tenderness (L) - Neurological Neurological exam: Alert, Normal gait, Oriented X3 - Psychiatric Psychiatric exam: Normal affect, Normal mood - Skin Skin exam: Normal color. negative: Abrasion Type of lesion: negative: abrasion Course Vital Signs 04/21/18 21:49 Temperature 98.3 F Pulse Rate 96 H Respiratory 24 Rate Blood Pressure 195/113 Pulse Ox 96 - Reevaluation(s) Reevaluation #1: 04/21/18 21:54 EKG: NSR 96 LAD, normal intervals ST-T wave changes I, AVL, V4-V6 No significant change from previous Reevaluation #2: 04/21/18 22:30 Laboratory studies were reviewed and appear grossly unremarkable for an acute process. 04/21/18 22:54 Repeat EKG: NSR 76 LAD, normal intervals Non-specific ST-T wave changes CXR: Negative for an acute process. Patient continues to be chest-pain free, will admit for further cardiac evaluation. Reevaluation #3: 04/22/18 07:25 Case was discussed with Nata Torres NP, will accept admission at this time. Medical Decision Making - Lab Data Result diagrams: 04/21/18 22:02 04/21/18 22:02 Disposition Disposition: Admit Clinical Impression: Atypical chest pain CAD (coronary artery disease) Qualifiers: Coronary Disease-Associated Artery/Lesion type: [place] artery [place] vs. transplanted heart: [place] heart Associated angina: with unspecified angina Qualified Code(s): I25.119 - Atherosclerotic heart disease of [place] coronary artery with unspecified angina pectoris Disposition: Still a Patient at [facility] Decision to Admit: Admit from ER Decision to Admit Date: 04/21/18 Decision to Admit Time: 22:56 Condition: (2) Stable Time of Disposition: 22:57 Quality - Quality Measures Quality Measures: N/A - Blood Pressure Screening Does Patient Have Any of the Following: Active Dx of HTN Blood Pressure Classification: Hypertensive Reading Systolic Measurement: 195 Diastolic Measurement: 113 Screening for High Blood Pressure: Patient Exclusion, Hx of HTN [G9744]
[2018-04-21 22:09] LABS: BASO % 0.2 % (0-6); EOS % 0.3 % (0-6); GRAN % 73.3 % (47-80); LYMPH % 15.1 % (16-45); MEAN PLATELET VOLUME 9.7 fl (7.4-10.4); MONO % 11.1 % (0-9); PLATELET COUNT 234 K/uL (130-400); WHITE BLOOD COUNT W/O DIFF 9.7 K/uL (4.2-12.2)
[2018-04-21 22:10] LABS: MEAN CORPUSCULAR HEMOGLOBIN 32.5 pg (27-33)
[2018-04-21 22:18] LABS: BLOOD UREA NITROGEN 13 mg/dL (8-23); CREATININE 1.2 mg/dL (0.7-1.2); EST GLOMERULAR FILTRATION RATE > 60 mL/min
[2018-04-21 22:21] LABS: GLUCOSE,RANDOM 116 mg/dL (74-109)
[2018-04-21 22:24] LABS: ALB/GLOB RATIO 1.3 (1.1-1.8); ALKALINE PHOSPHATASE 59 U/L (55-149); ALT/SGPT 23 U/L (<41); AST/SGOT 19 U/L (10.0-50.0)
[2018-04-21] MEDS ORDERED: ALBUTEROL HFA 8 GM INHALER INH PRN (23:30)
[2018-04-21] MEDS ORDERED: NITROGLYCERIN 0.4MG SL TABLET #25 BTL SL PRN (23:30)
[2018-04-21] MEDS ORDERED: 0.9 % SODIUM CHLORIDE 1000ML 1,000 ML IV PRN (23:30)
[2018-04-21] MEDS ORDERED: MEPOLIZUMAB 100 MG SQ SCH (23:30)
[2018-04-21] MEDS ORDERED: AMLODIPINE BESYLATE 5MG TAB PO PRN (23:30)
[2018-04-22] MEDS ORDERED: LEVOTHYROXINE SODIUM 100 MCG TABLET PO SCH (07:00)
[2018-04-22] MEDS ORDERED: ALBUTEROL SULFATE (0.083%) 2.5 MG/3 ML NEB INH PRN (08:18)
--- NOTE | 2018-04-22 09:36 | RADIOLOGY REPORT ---
EXAM: CHEST, TWO VIEWS HISTORY: CHEST PAIN. TECHNIQUE: Frontal and lateral views of the chest were performed. Comparison: 04/02/18. FINDINGS: The heart size is normal. Postop surgical clips. No infiltrate or pleural effusion. IMPRESSION: NO ACUTE DISEASE PROCESS. JOB NUMBER: [id number] MTDD
[2018-04-22] MEDS ORDERED: UMECLIDINIUM BROMIDE (INCRUSE) 62.5MCG IH SCH (10:00)
[2018-04-22] MEDS ORDERED: BUDESONIDE 0.5 MG/2 ML INH SCH (10:00)
[2018-04-22] MEDS ORDERED: LOSARTAN POTASSIUM 25 MG TABLET PO SCH (10:00)
[2018-04-22] MEDS ORDERED: ASPIRIN 325 MG TAB ENTERIC-COATED PO SCH (10:00)
[2018-04-22] MEDS ORDERED: FUROSEMIDE 20 MG TABLET PO SCH (10:00)
[2018-04-22] MEDS ORDERED: METOPROLOL TART 50 MG TABLET PO SCH (10:00)
[2018-04-22] MEDS ORDERED: SIMETHICONE 80 MG TAB.CHEW PO PRN (11:34)
--- NOTE | 2018-04-22 11:36 | History & Physical ---
History of Present Illness - Date of Service Date of Service for History & Physical: 04/22/18 - History of Present Illness Admitting Diagnosis: Chest Pain. HTN History of Present Illness: 73 to male presents for admission for chest pain. Reported 30 min of "sore, aching" pain substernal that resolved on its own with no radiating pain. C/O 2 years of baseline SOB, seeing Dr Moreau for cardiology. PMH CABG x4 vessels 2015 and recent AAA endo 06/2017 (5.3cm complented in [place]), HTN, hyperlipidemia, hypothyroidism, and COPD. Former smoker, quit 1979. Pt has been seen in ER 5 times in the past 4 weeks for similar c/o GOMEZ, SOB, or general ill feeling. Pt takes his BP several times daily, brought in his log for admission, has mostly 110-130 SBP but was 210/100 once during the CP at home and came into ER. 04/21/18 -Pt had his bring him to ER for 30 min of "sore, aching" pain that did not radiate and resolved on its own. BP 195/113, HR 96, RR 24, 96% RA, 98.3F pain 0/10 EKG NSR with PVC, no ST changes, CXR neg Torp <0.010 WBC 9.7, Hgb 14, Hct 40, Plt 234 Na 139, K 3.8, Cl 98, CO2 25, BUN 13, Cr 1.2, GFR>60, LFTs normal Admitted, cont tele, cardiology consult, PRN nitro ordered but not given 04/22/18 Pt resting comfortably in bed, denies CP and does not appear short of breath. No lower extremity edema noted, lungs CTA, heart sounds RRR. Pulses +3 radial, PT, DP. BS x4, soft abd with tympanic suggestive of gas. Pt denies any discomfort and states he came into ER bc his blood pressure was elevated and had transient CP that is described by pt as "sore, ache". Trop neg x2, awaiting 3rd draw. EKG no acute process, awaiting MAG results related to ectopy. Tele NSR , cardiology consult pending. PCP Specialist Lizzeth (cardiology) Travel Screening - Travel/Exposure Within Last 30 Days Have you traveled within the last 30 days?: No - Travel/Exposure Within Last Year Have you traveled outside the [place] in the last year?: No - Additonal Travel Details Have you been exposed to anyone with a communicable illness?: No - Travel Symptoms Symptom Screening: None Review of Systems Constitutional: Denies: Chills, Fever, Malaise, Night sweats Eyes: Denies: Eye discharge, Eye pain ENT: Denies: Congestion, Ear pain, Epistaxis Respiratory: Denies: Cough, Dyspnea Cardiovascular: Reports: Chest pain. Denies: Dyspnea on exertion Endocrine: Denies: Fatigue, Heat or cold intolerance Gastrointestinal: Denies: Abdominal pain, Nausea, Vomiting Genitourinary: Denies: Incontinence, Retention Musculoskeletal: Denies: Arthralgia, Back pain Skin: Denies: Bruising, Change in color Neurological: Denies: Abnormal gait, Confusion, Headache, Seizure Psychiatric: Denies: Anxiety Hematological/Lymphatic: Denies: Anemia, Blood Clots Past Medical History - SOCIAL HISTORY Smoking Status: Former smoker - RESPIRATORY Hx Respiratory Disorders: Yes Hx Asthma: Yes Hx Bronchitis: Yes Hx COPD: Yes Hx Pneumonia: Yes (long ago) - CARDIOVASCULAR Hx Cardio Disorders: Yes Hx Cardiac Cath: Yes 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 - NEURO Hx Neuro Disorders: No - GI Hx GI Disorders: Yes Hx Reflux: Yes - Hx Genitourinary Disorders: Yes Hx Kidney Stones: Yes (many) Hx Prostate Problems: Yes (on Flomax "as needed") Hx Renal Disease: No - ENDOCRINE Hx Endocrine Disorders: Yes Hx Thyroid Disease: Yes - MUSCULOSKELETAL Hx Musculoskeletal Disorders: Yes Hx Arthritis: Yes Hx Back Injury: Yes (10 yrs ago fell on my back-rib "out of place") - PSYCH Hx Psych Problems: Yes Hx Anxiety: Yes (no meds) - HEMATOLOGY/ONCOLOGY Hx Hematology/Oncology Disorders: No Family Medical History Hx Heart Disease: Father H&P Meds/Allergies - Allergies Allergies: Allergies Allergy/AdvReac Type Severity Reaction Status Date / Time No Known Drug Allergies Allergy Verified 03/17/18 12:34 - Home Medications Home Medications Medication Instructions Recorded Confirmed Last Taken Budesonide 1 each INH BID 04/21/18 04/21/18 Unknown - Active Medications Active Medications: Current Medications Albuterol Sulfate (Ventolin Hfa) 1 - 2 puff INH .EVERY 4-6 HOURS PRN PRN Reason: DIFFICULTY IN BREATHING Last Admin: 04/22/18 06:27 Dose: 2 puff Albuterol Sulfate (Albuterol Sulfate) 2.5 mg INH RESP.Q4H PRN PRN Reason: COUGH AND DIFFICULTY BREATHING Last Admin: 04/22/18 10:20 Dose: 2.5 mg Amlodipine Besylate (Norvasc) 5 mg PO DAILY PRN PRN Reason: SBP>135 Aspirin (Ecotrin (Ec)) 325 mg PO DAILY [facility] Last Admin: 04/22/18 09:56 Dose: 325 mg Budesonide (Pulmicort) 0.5 mg INH BID [facility] Last Admin: 04/22/18 10:26 Dose: 0.5 mg Furosemide (Lasix) 20 mg PO QAM [facility] Last Admin: 04/22/18 09:56 Dose: 20 mg Sodium Chloride () 1,000 mls @ 15 mls/hr IV .Q24H PRN PRN Reason: LARGE VOLUME IV Levothyroxine Sodium (Synthroid) 100 mcg PO DAILYTHY [facility] Last Admin: 04/22/18 06:10 Dose: 100 mcg Losartan Potassium (Cozaar) 50 mg PO BID [facility] Last Admin: 04/22/18 09:57 Dose: 50 mg Metoprolol Tartrate (Lopressor) 75 mg PO BID [facility] Last Admin: 04/22/18 09:55 Dose: 75 mg Montelukast Sodium (Singulair) 10 mg PO QHS [facility] Nitroglycerin (Nitrostat 0.4mg) 0.4 mg SL Q5MIN PRN PRN Reason: CHEST PAIN Non-Formulary Medication (Finasteride [Finasteride]) 5 mg PO QHS [facility] Simvastatin (Zocor) 20 mg PO QHS [facility] Physical Exam - Vital Signs Vital Signs: Vital Signs - Last 24 Hrs Temp Pulse Pulse Pulse Resp BP BP 04/22/18 10:45 74 16 04/22/18 09:00 90 77 20 04/22/18 08:00 98.1 F 77 20 145/89 04/22/18 06:27 76 20 04/21/18 23:35 97.3 F L 78 16 162/98 04/21/18 23:23 72 20 141/84 04/21/18 22:42 73 166/97 04/21/18 22:05 82 20 195/113 04/21/18 21:49 98.3 F 96 H 24 195/113 Pulse Ox 04/22/18 10:45 94 L 04/22/18 09:00 04/22/18 08:00 97 04/22/18 06:27 96 04/21/18 23:35 92 L 04/21/18 23:23 95 04/21/18 22:42 90 L 04/21/18 22:05 92 L 04/21/18 21:49 96 - General General Appearance: Alert, Oriented x3, Cooperative, Mild distress Limitations: No limitations - Head Head exam: Atraumatic, Normocephalic, Normal inspection Head exam detail: negative: Abrasion, Contusion, Clark's sign, General tenderness, Hematoma, Laceration - Eye Eye exam: Normal appearance. negative: Conjunctival injection, Periorbital swelling, Periorbital tenderness, Scleral icterus - ENT ENT exam: Normal exam Ear exam: Normal external inspection. negative: Auricular hematoma, Auricular trauma Nasal Exam: negative: Active bleeding, Discharge, Dried blood, Foreign body Mouth exam: negative: Drooling, Laceration, Muffled voice, Tongue elevation Throat exam: negative: Tonsillar erythema, Tonsillomegaly, R peritonsillar mass , L peritonsillar mass - Neck Neck exam: Normal inspection. negative: Meningismus, Tenderness - Respiratory Respiratory exam: Normal lung sounds bilaterally. negative: Rales, Respiratory distress, Rhonchi, Stridor - Cardiovascular Cardiovascular Exam: Regular rate, Normal rhythm, Normal heart sounds Peripheral Pulses: 3+: Radial (R), Radial (L), Dorsalis Pedis (R), Dorsalis Pedis (L) - GI/Abdominal GI/Abdominal exam: Soft. negative: Rebound, Rigid, Tenderness - Rectal Rectal exam: Deferred - exam: Deferred - Extremities Extremities exam: Normal inspection. negative: Calf tenderness, Pedal edema, Tenderness - Back Back exam: Reports: Normal inspection. Denies: CVA tenderness (R), CVA tenderness (L) - Neurological Neurological exam: Alert, Normal gait, Oriented X3 - Psychiatric Psychiatric exam: Normal affect, Normal mood - Skin Skin exam: Normal color. negative: Abrasion Type of lesion: negative: abrasion Results - Labs Result Diagrams: 04/21/18 22:02 04/21/18 22:02 Labs Last 24 Hours: Laboratory Results - last 24 hr 04/21/18 04/21/18 04/22/18 22:02 22:02 06:20 WBC 9.7 RBC 4.30 L Hgb 14.0 Hct 40.0 L MCV 93.0 MCH 32.5 MCHC 35.0 RDW 14.0 Plt Count 234 MPV 9.7 Gran % 73.3 Lymphocytes % 15.1 L Monocytes % 11.1 H Eosinophils % 0.3 Basophils % 0.2 Sodium 139 Potassium 3.8 Chloride 98 Carbon Dioxide 25.0 Anion Gap 16.0 BUN 13 Creatinine 1.2 Estimated GFR > 60 Random Glucose 116 H Calcium 9.4 Total Bilirubin 0.70 AST 19 ALT 23 Alkaline Phosphatase 59 Troponin T < 0.010 < 0.010 Total Protein 7.0 Albumin 4.0 Globulin 3.0 Albumin/Globulin Ratio 1.3 - Imaging and Cardiology Chest x-ray Status: Report reviewed VTE H&P Assessment - Risk for VTE Risk for VTE: Yes Risk Level: Moderate Risk Assessment Date: 04/22/18 Risk Assessment Time: 11:36 VTE Orders Placed or Will Be Placed: Yes Plan - Detailed Diagnosis and Plan (1) Atypical chest pain Current Visit: Yes Status: Acute Base Code: R07.89 - OTHER CHEST PAIN Comment: 04/22/18 -substernal ache/sore pain resolved upon arrival to ER, no c/o pain during admission -trop x2 neg, EKG neg, awaiting cardiology consult -[facility] (2) Full code status Current Visit: Yes Status: Acute Base Code: Z78.9 - OTHER SPECIFIED HEALTH STATUS (3) DVT prophylaxis Current Visit: Yes Status: Acute Base Code: [id number] -
--- NOTE | 2018-04-22 13:10 | Discharge Summary ---
Providers Discharge Summary Date: 04/22/18 Date of admission: 04/21/18 23:26 Expected Date of Discharge: 04/22/18 Attending physician: MARIA T BEAR Primary care physician: JON RANDOLPH M.D. Consults: Consult Orders 04/21/18 23:30 Consult - Cardiology NOW Consulting Provider: PEDRO PABLO DAVE Physician Instructions: Reason For Exam: Chest pain Does pt have current animation director?: Erlin Physical Exam - Vital Signs Vital Signs: Vital Signs - Last 24 Hrs Temp Pulse Pulse Pulse Resp BP BP 04/22/18 10:45 74 16 04/22/18 09:00 90 77 20 04/22/18 08:00 98.1 F 77 20 145/89 04/22/18 06:27 76 20 04/21/18 23:35 97.3 F L 78 16 162/98 04/21/18 23:23 72 20 141/84 04/21/18 22:42 73 166/97 04/21/18 22:05 82 20 195/113 04/21/18 21:49 98.3 F 96 H 24 195/113 Pulse Ox 04/22/18 10:45 94 L 04/22/18 09:00 04/22/18 08:00 97 04/22/18 06:27 96 04/21/18 23:35 92 L 04/21/18 23:23 95 04/21/18 22:42 90 L 04/21/18 22:05 92 L 04/21/18 21:49 96 - General General Appearance: Alert, Oriented x3, Cooperative, Mild distress Limitations: No limitations - Head Head exam: Atraumatic, Normocephalic, Normal inspection Head exam detail: negative: Abrasion, Contusion, Clark's sign, General tenderness, Hematoma, Laceration - Eye Eye exam: Normal appearance. negative: Conjunctival injection, Periorbital swelling, Periorbital tenderness, Scleral icterus - ENT ENT exam: Normal exam Ear exam: Normal external inspection. negative: Auricular hematoma, Auricular trauma Nasal Exam: negative: Active bleeding, Discharge, Dried blood, Foreign body Mouth exam: negative: Drooling, Laceration, Muffled voice, Tongue elevation Throat exam: negative: Tonsillar erythema, Tonsillomegaly, R peritonsillar mass , L peritonsillar mass - Neck Neck exam: Normal inspection. negative: Meningismus, Tenderness - Respiratory Respiratory exam: Normal lung sounds bilaterally. negative: Rales, Respiratory distress, Rhonchi, Stridor - Cardiovascular Cardiovascular Exam: Regular rate, Normal rhythm, Normal heart sounds Peripheral Pulses: 3+: Radial (R), Radial (L), Dorsalis Pedis (R), Dorsalis Pedis (L) - GI/Abdominal GI/Abdominal exam: Soft. negative: Rebound, Rigid, Tenderness - Rectal Rectal exam: Deferred - exam: Deferred - Extremities Extremities exam: Normal inspection. negative: Calf tenderness, Pedal edema, Tenderness - Back Back exam: Reports: Normal inspection. Denies: CVA tenderness (R), CVA tenderness (L) - Neurological Neurological exam: Alert, Normal gait, Oriented X3 - Psychiatric Psychiatric exam: Normal affect, Normal mood - Skin Skin exam: Normal color. negative: Abrasion Type of lesion: negative: abrasion Hospitalization - Hospitalization Admission Diagnosis: Chest Pain. HTN - Problem List/Discharge Diagnosis (1) Atypical chest pain Current Visit: Yes Status: Acute Base Code: R07.89 - OTHER CHEST PAIN Comment: 04/22/18 -substernal ache/sore pain resolved upon arrival to ER, no c/o pain during admission -trop x2 neg, EKG neg, awaiting cardiology consult -Pt sees [facility] outpt regularly -Card consult complted, pt to have stress outpt and f/u with [facility], d/c (2) Full code status Current Visit: Yes Status: Acute Base Code: Z78.9 - OTHER SPECIFIED HEALTH STATUS (3) DVT prophylaxis Current Visit: Yes Status: Acute Base Code: [id number] - - Hospitalization Course Disposition: Home, Self-Care Procedures: Imaging and X-Rays 04/21/18 22:53 CHEST 2 VIEWS [RAD] Stat Cardiology Procedures 04/21/18 21:51 EKG NOW 04/21/18 22:54 EKG NOW 04/21/18 23:30 Field Technician .Continuous Abnormal Labs: Abnormal Lab Results 04/21/18 04/21/18 Range/Units 22:02 22:02 RBC 4.30 L (4.40-5.70) M/uL Hct 40.0 L (42.0-52.0) % Lymphocytes % 15.1 L (16-45) % Monocytes % 11.1 H (0-9) % Random Glucose 116 H (74-109) mg/dL Condition at Discharge: (2) Stable Discharge Medications - Discharge Medications Home Medications: Ambulatory Orders Atorvastatin Calcium [Lipitor] 10 mg PO QHS 07/21/14 [Last Taken 03/17/18] Levothyroxine Sodium [Synthroid] 100 mcg PO DAILY 07/21/14 [Last Taken 03/17/18] Montelukast Sodium [Singulair] 10 mg PO QHS 07/21/14 [Last Taken 03/17/18] Tiotropium [place] [Spiriva] 18 mcg IH DAILY 05/10/15 [Last Taken 03/17/18] Metoprolol Tartrate [Lopressor] 75 mg PO BID 11/06/16 [Last Taken 03/17/18] Albuterol Sulfate [Ventolin Hfa] 1 - 2 puff IH .EVERY 4-6 HOURS PRN 02/28/17 [ Last Taken 03/17/18] Losartan Potassium 50 mg PO BID 02/28/17 [Last Taken 03/17/18] Amlodipine Besylate [Norvasc] 5 mg PO DAILY PRN 12/18/17 [Last Taken 03/17/18] Finasteride 5 mg PO QPM 02/28/18 [Last Taken 03/17/18] Furosemide 20 mg PO QAM 02/28/18 [Last Taken 03/17/18] Mepolizumab [Nucala] 100 mg SQ MONTHLY 03/17/18 [Last Taken 04/01/18] Budesonide 1 each INH BID 04/21/18 [Last Taken Unknown] Simethicone [Mylicon] 80 mg PO TID PRN tab.chew 04/22/18 [Last Taken Unknown] Discharge Plan - Discharge Instructions Activity at Discharge: Increase Activity as Tolerated Diet at Discharge: Low Fat, Low Cholesterol Instructions: Nitroglycerin, Rapid Release (By mouth), Chest Pain (DC), Cardiac Stress Test (DC) Additional Instructions: Please call and schedule your stress test and have this completed as soon as you can. Follow up with Dr Lizzeth leal. The cardiology consult suggested you have a prescription for nitro, this was hand written and given to you at discharge. Go to ER for sudden onset of chest pain, especially if it resovles with the use of nitro. Continue your regular medications as directed by your PCP and animation director Quality Measures - Quality Measures Quality Measures: Advance Directives, Coronary Artery Disease: Antiplatelet Therapy, Documentation of Current Medications in Medical Record, Elder Maltreatment Screen and Follow-Up Plan, Screening for High Blood Pressure and F/ U Documented - Current Medications Quality Measure: Measure #130: Documentation of Current Medications Documentation of Current Medications: <Current Medications Documented/Reviewed> [Q6070] - Blood Pressure Screening Quality Measure: Screening for High Blood Pressure and Follow-Up Documented Does Patient Have Any of the Following: Active Dx of HTN Blood Pressure Classification: Hypertensive Reading Systolic Measurement: 195 Diastolic Measurement: 113 Screening for High Blood Pressure: Patient Exclusion, Hx of HTN [G9744] - Coronary Artery Disease Quality Measure: Measure #6: Coronary Artery Disease (CAD) Antiplatelet Therapy: <ASA or clopidogrel prescribed> [5261F] - Advance Directives Quality Measure: Measure #47: Care Plan Advance Directives Established: No Advance Directives Information Provided To Patient: No Advance Directives on File: No Living Will: No Power of Maintenance Director: No Advance Care Planning: Not Discussed or Documented [[id number] 8P] - Elder Abuse Suspicion Index Screening: Elder Abuse Suspicion Index Screening Rely on people for bathing, dressing, shopping, banking, etc: No Prevented from getting food, clothes, medication, etc: No Made to feel shamed or threatened by someone: No Forced to sign papers or use money against will: No Feel afraid, touched in ways not wanted or hurt physically: No Poor eye contact, withdrawn, malnourished, cuts or bruises: No Screening Result: Negative result EASI Reference Information: Jarek HERNÁNDEZ, Carine C, Kaylee D, Zulma Perry.Development and validation of a tool to assist physicians identification of elder abuse: The Elder Abuse Suspicion Index (EASI ). Journal of Elder Abuse and Neglect, 2008; 20 (3): 276-300. - Elder Maltreatment Screen Quality Measures: Elder Maltreatment Screen and Follow-Up Plan Elder Maltreatment Screen: <Negative, No Follow-Up Plan Required> [G8734]
--- NOTE | 2018-04-22 20:48 | Cardiology Consult ---
DATE OF CONSULTATION: 04/22/2018 REASON FOR CONSULT: CHEST PAIN. HISTORY OF PRESENT ILLNESS: This is a 73-year-old male with a significant cardiovascular history. The patient has a known history of CABG and with left atrial appendage plication and history of AAA endovascular repair. He also has history of hypertension. The patient presented to the Emergency Room due to an episode of chest pain. He states this lasted for 30 minutes. It was just described as an ache. It came on at rest with no other associated symptoms. He states in the past several weeks, he has been out chopping wood without any cardiac symptoms. He does have a consistent history of shortness of breath, which is unchanged. He has not had an recurrent symptoms of chest pain since admission. His EKG demonstrated sinus rhythm with one ventricular couplet and nonspecific T-wave changes. The patient's blood pressure on admission was noted to be 210/100. He denies any palpitations, lightheadedness, or dizziness. He does occasionally have some bilateral lower extremity swelling. He denies any orthopnea or PND. REVIEW OF SYSTEMS: CONSTITUTIONAL; Denies any recent illness. Negative for fever , chills or significant weight change. EYES; No change in vision. EARS; No change in hearing. HEENT; No congestion. No difficulty swallowing. RESPIRATORY; Denies any increased dyspnea or cough. CARDIOVASCULAR; Positive episode of chest pain. Negative palpitations. Negative syncope. ENDOCRINE; Denies any fatigue or heat or cold intolerance. GASTROINTESTINAL; Denies abdominal pain, nausea, or vomiting. GENITOURINARY; Denies any incontinence or dysuria. MUSCULOSKELETAL; Denies any arthralgia. SKIN; Denies any easy bruising or rash. NEUROLOGICAL; Denies any headache or dizziness. PSYCHIATRIC; Denies anxiety. HEMATOLOGICAL/LYMPHATIC; Denies any history of blood clots. PAST MEDICAL HISTORY: Positive for COPD, coronary artery disease, hypertension, hyperlipidemia, GERD. SOCIAL HISTORY: Previous cigarette smoker. Denies alcohol or illicit drug use. FAMILY HISTORY: Father had history of coronary artery disease. ALLERGIES: NO KNOWN DRUG ALLERGIES. HOME MEDICATIONS: Budesonide one inhalation b.i.d. Albuterol p.r.n. Amlodipine 5 mg p.r.n. for systolic blood pressure greater than 140 Aspirin 81 mg daily Pulmicort inhalation b.i.d. Lasix 20 mg every day Synthroid 100 mcg daily Losartan 50 mg b.i.d. Lopressor 75 mg b.i.d. Singulair 10 mg p.o. every h.s. Simvastatin 20 mg p.o. every h.s. CURRENT MEDICATIONS INCLUDE: Ventolin one to two puffs every 4 to 6 hours Amlodipine 5 mg p.o. every day p.r.n. for systolic blood pressure greater than 135 Aspirin 325 mg daily Pulmicort 0.5 mg b.i.d. Lasix 20 mg daily Levothyroxine 100 mcg daily Losartan 50 mg b.i.d. Lopressor 75 mg b.i.d. Singulair 10 mg every h.s. Nitrostat p.r.n. Finasteride 5 mg p.o. every h.s. Zocor 20 mg every h.s. PHYSICAL EXAMINATION: VITAL SIGNS: Blood pressure 145/89. Pulse 77. Respirations 20. He is afebrile. O2 sat 94% on room air. GENERAL: Alert and oriented. In no acute distress. HEENT: Normocephalic, atraumatic. Extraocular movements are intact. Pupils are equal and round. NECK: Supple without lymphadenopathy, thyromegaly, or bruits. CARDIAC: Regular rate and rhythm. No significant murmur was appreciated. LUNGS: Clear to auscultation in all lung cuellar without rales, rhonchi, or wheeze. ABDOMEN: Soft, nontender. Bowel sounds present in all four quadrants. EXTREMITIES: No edema. 2+ pulses bilaterally. SKIN: Warm and dry. DIAGNOSTIC STUDIES: CBC within normal limits. CMP within normal limits. Troponin negative x3. EKG was sinus rhythm with one ventricular couplet and nonspecific T-wave changes. ASSESSMENT/PLAN: 1. CHEST PAIN/ATYPICAL: The patient has a significant history of coronary artery disease, status post CABG in 2016. Troponins have been negative x2. Will plan outpatient Lexiscan Cardiolite Test as for possible progression of underlying coronary disease contributing to his symptoms. Patient has follow-up appointment scheduled with Dr. Moreau on 04/24/18. Patient will be given a prescription of Nitrostat to use p.r.n. at home for chest pain. 2. HYPERTENSION: Monitor. Patient has Norvasc to use as p.r.n. 3. HYPERLIPIDEMIA: On statin. 4. COPD. The patient will be seen in follow-up with a planned Lexiscan Cardiolite and office visit with Dr. Moreau to review the results. He was instructed to contact our office if he should have any further questions or concerns. He was instructed on how to use Nitroglycerine if needed. Thank you for the opportunity to participate in this patient's care. JOB NUMBER: [id number] MTDD
[2018-04-22] MEDS ORDERED: Non-Formulary MISC (Finasteride [Finasteride] 5 MG) PO SCH (22:00)
[2018-04-22] MEDS ORDERED: MONTELUKAST SODIUM 10MG TABLET PO SCH (22:00)
[2018-04-22] MEDS ORDERED: SIMVASTATIN 20 MG TABLET PO SCH (22:00)
[2018-04-23] MEDS ORDERED: ENOXAPARIN 40 MG/0.4 ML SYR SQ SCH (10:00)
== END 2018-04-22 14:15 | disposition home or self-care (01) ==
LOC: ER 21:47 → MEDSURG 23:26
PROVIDERS: ADMIT Internal Medicine; ATTEND Internal Medicine
DX: R07.89 Other chest pain (principal); I10 Essential (primary) hypertension; E78.5 Hyperlipidemia, unspecified; E03.9 Hypothyroidism, unspecified; J44.9 Chronic obstructive pulmonary disease, unspecified; J45.909 Unspecified asthma, uncomplicated; I82.5Z2 Chronic embolism and thrombosis of unspecified deep veins of left distal lower extremity; Z79.01 Long term (current) use of anticoagulants; M19.90 Unspecified osteoarthritis, unspecified site; Z95.1 Presence of aortocoronary bypass graft; Z87.442 Personal history of urinary calculi; Z87.891 Personal history of nicotine dependence
CPT/HCPCS: 99285 ×2; 83735; 85025; 80053; 84484 ×2; 71046; 94640 ×4; 94761; 93005; 93010; G0378 ×2; 99220; J7613

== ENCOUNTER 2018-04-22 21:23 | Emergency (ER) | payer MEDICARE, BC ==
[2018-04-22] MEDS ORDERED: IPRATROPIUM/ALBUTEROL (0.5MG/3MG) NEB INH ONE (21:34)
--- NOTE | 2018-04-22 21:40 | Emergency Department Record ---
History of Present Illness - General Chief Complaint: Shortness of breath Stated Complaint: GOMEZ Time Seen by Provider: 04/22/18 21:24 Source: Patient Mode of Arrival: Ambulatory Limitations: No limitations - History of Present Illness Initial Comments: 73 yo male presents to ED for evaluation of difficulty in breathing this evening. Patient was admitted 22 hours ago for chest discomfort, serial troponins are negative for cardiac damage. Patient was discharged home at 8 hours ago, returns with shortness of breath. Patient reports a history of COPD , did not use his Ventolin inhaler [employer]. Patient denies fevers, chills, or recent illness. MD Complaint: Shortness of breath Onset/Timin -: Hour(s) Severity: Moderate Consistency: Constant Worsens With: Nothing Known History Of: COPD Associated Symptoms: Denies other symptoms Treatments Prior to Arrival: None - Related Data Home Oxygen Therapy: No Previous Rx's Medication Instructions Recorded Simethicone [Mylicon] 80 mg PO TID PRN tab.chew 04/22/18 Allergies Allergy/AdvReac Type Severity Reaction Status Date / Time No Known Drug Allergies Allergy Verified 04/22/18 21:30 Review of Systems Constitutional: Denies: Chills, Fever, Malaise, Night sweats Eyes: Denies: Eye discharge, Eye pain ENT: Denies: Congestion, Ear pain, Epistaxis Respiratory: Reports: Dyspnea. Denies: Cough Cardiovascular: Denies: Chest pain, Dyspnea on exertion, Edema Endocrine: Denies: Fatigue, Heat or cold intolerance Gastrointestinal: Denies: Abdominal pain, Nausea, Vomiting Genitourinary: Denies: Incontinence, Retention Musculoskeletal: Denies: Arthralgia, Back pain Skin: Denies: Bruising, Change in color Neurological: Denies: Abnormal gait, Confusion, Headache, Seizure Psychiatric: Denies: Anxiety Hematological/Lymphatic: Denies: Anemia, Blood Clots Past Medical History - SOCIAL HISTORY Smoking Status: Former smoker - RESPIRATORY Hx Respiratory Disorders: Yes Hx Asthma: Yes Hx Bronchitis: Yes Hx COPD: Yes Hx Pneumonia: Yes (long ago) - CARDIOVASCULAR Hx Cardio Disorders: Yes Hx Cardiac Cath: Yes 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 - NEURO Hx Neuro Disorders: No - GI Hx GI Disorders: Yes Hx Reflux: Yes - Hx Genitourinary Disorders: Yes Hx Kidney Stones: Yes (many) Hx Prostate Problems: Yes (on Flomax "as needed") Hx Renal Disease: No - ENDOCRINE Hx Endocrine Disorders: Yes Hx Thyroid Disease: Yes - MUSCULOSKELETAL Hx Musculoskeletal Disorders: Yes Hx Arthritis: Yes Hx Back Injury: Yes (10 yrs ago fell on my back-rib "out of place") - PSYCH Hx Psych Problems: Yes Hx Anxiety: Yes (no meds) - HEMATOLOGY/ONCOLOGY Hx Hematology/Oncology Disorders: No Family Medical History Hx Heart Disease: Father Physical Exam - General General Appearance: Alert, Oriented x3, Cooperative, No acute distress, Other ( Speaking in clear sentences, no clinical evidence for difficulty in breathing on examination.) Limitations: No limitations - Head Head exam: Atraumatic, Normocephalic, Normal inspection Head exam detail: negative: Abrasion, Contusion, Clark's sign, General tenderness, Hematoma, Laceration - Eye Eye exam: Normal appearance. negative: Conjunctival injection, Periorbital swelling, Periorbital tenderness, Scleral icterus - ENT Ear exam: negative: Auricular hematoma, Auricular trauma Nasal Exam: negative: Active bleeding, Discharge, Dried blood, Foreign body Mouth exam: negative: Drooling, Laceration, Muffled voice, Tongue elevation - Neck Neck exam: Normal inspection. negative: Meningismus, Tenderness - Respiratory Respiratory exam: Normal lung sounds bilaterally. negative: Rales, Respiratory distress, Rhonchi, Stridor - Cardiovascular Cardiovascular Exam: Regular rate, Normal rhythm, Normal heart sounds - GI/Abdominal GI/Abdominal exam: Soft. negative: Rebound, Rigid, Tenderness - Rectal Rectal exam: Deferred - exam: Deferred - Extremities Extremities exam: Normal inspection. negative: Calf tenderness, Pedal edema, Tenderness - Back Back exam: Denies: CVA tenderness (R), CVA tenderness (L) - Neurological Neurological exam: Alert, Normal gait, Oriented X3 - Psychiatric Psychiatric exam: Normal affect, Normal mood - Skin Skin exam: Normal color. negative: Abrasion Type of lesion: negative: abrasion Course - Reevaluation(s) Reevaluation #1: 04/22/18 22:21 Patient was reassessed following duoneb, reports that he is feeling much more relaxed and is breathing easier. Patient reports that he is feeling better and appears stable for discharge at this time. Patient was encouraged to use his nebulizer at home when he becomes short of breath as well. Disposition Disposition: Discharge Clinical Impression: COPD (chronic obstructive pulmonary disease) Qualifiers: COPD type: unspecified COPD Qualified Code(s): J44.9 - Chronic obstructive pulmonary disease, unspecified Disposition: Home, Self-Care Condition: (2) Stable Instructions: COPD (Chronic Obstructive Pulmonary Disease) (ED) Additional Instructions: Return to ED if your symptoms worsen or if you have any concerns. Follow-up with Dr. Lima in 3-5 days as directed. Forms: Patient Portal Access Time of Disposition: 22:23 Quality - Quality Measures Quality Measures: N/A - Blood Pressure Screening Does Patient Have Any of the Following: Active Dx of HTN Blood Pressure Classification: Hypertensive Reading Systolic Measurement: 132 Diastolic Measurement: 93 Screening for High Blood Pressure: Patient Exclusion, Hx of HTN [G9744]
== END 2018-04-22 23:30 | disposition home or self-care (01) ==
LOC: ER 21:23
DX: J44.9 Chronic obstructive pulmonary disease, unspecified (principal); R06.02 Shortness of breath; I10 Essential (primary) hypertension; Z87.891 Personal history of nicotine dependence
CPT/HCPCS: 94640; 99283

== ENCOUNTER 2018-05-30 10:22 | Emergency (ER) | payer MEDICARE, BC ==
[2018-05-30] MEDS ORDERED: IPRATROPIUM/ALBUTEROL (0.5MG/3MG) NEB INH ONE (10:28)
[2018-05-30] MEDS ORDERED: PREDNISONE 20 MG TAB PO ONE (10:30)
--- NOTE | 2018-05-30 10:35 | Emergency Department Record ---
History of Present Illness - General Chief Complaint: Shortness of breath Stated Complaint: SHORTNESS OF BREATH Time Seen by Provider: 05/30/18 10:27 Source: Patient Mode of Arrival: Ambulatory Limitations: No limitations - History of Present Illness Initial Comments: Pt to ED with complaint of GOMEZ. Pt states hx of "COPD with asthma" uses neb treatments at home 4 times a day on a regular basis. He has had a recent mild cough without sputum production. No fever. Freq Prednisone use with last about one month ago. No CP, no nausea. No hx DM. MD Complaint: Shortness of breath Onset/Timin -: Days(s) Improves With: Bronchodilators Known History Of: Asthma, COPD Associated Symptoms: Cough Treatments Prior to Arrival: Bronchodilator - Related Data Home Medications Medication Instructions Recorded Confirmed Last Taken Budesonide 0.25 mg IH DAILY 05/30/18 05/30/18 Unknown Previous Rx's Medication Instructions Recorded Prednisone [Prednisone 20Mg] 20 mg PO DAILY 4 Days #6 tab 05/30/18 Allergies Allergy/AdvReac Type Severity Reaction Status Date / Time No Known Drug Allergies Allergy Verified 04/22/18 21:30 Travel Screening - Travel/Exposure Within Last 30 Days Have you traveled within the last 30 days?: No - Travel/Exposure Within Last Year Have you traveled outside the [place] in the last year?: No - Additonal Travel Details Have you been exposed to anyone with a communicable illness?: No - Travel Symptoms Symptom Screening: None Review of Systems Constitutional: Denies: Chills, Fever, Night sweats, Weakness Eyes: Denies: Eye discharge, Photophobia ENT: Denies: Congestion, Ear pain, Hearing loss Respiratory: Reports: As per HPI, Cough, Dyspnea. Denies: Hemoptysis, Wheezes Cardiovascular: Denies: Arrhythmia, Chest pain, Palpitations, Syncope Endocrine: Denies: Fatigue, Polyuria Gastrointestinal: Denies: Abdominal pain, Nausea, Vomiting Musculoskeletal: Denies: Arthralgia, Back pain Skin: Denies: Bruising, Rash Neurological: Denies: Headache, Numbness, Weakness Psychiatric: Denies: Anxiety Hematological/Lymphatic: Denies: Anemia Past Medical History - SOCIAL HISTORY Smoking Status: Former smoker Alcohol Use: None Drug Use: None - RESPIRATORY Hx Respiratory Disorders: Yes Hx Asthma: Yes Hx Bronchitis: Yes Hx COPD: Yes Hx Pneumonia: Yes (long ago) - CARDIOVASCULAR Hx Cardio Disorders: Yes Hx Cardiac Cath: Yes 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 - NEURO Hx Neuro Disorders: No - GI Hx GI Disorders: Yes Hx Reflux: Yes - Hx Genitourinary Disorders: Yes Hx Kidney Stones: Yes (many) Hx Prostate Problems: Yes (on Flomax "as needed") Hx Renal Disease: No - ENDOCRINE Hx Endocrine Disorders: Yes Hx Thyroid Disease: Yes - MUSCULOSKELETAL Hx Musculoskeletal Disorders: Yes Hx Arthritis: Yes Hx Back Injury: Yes (10 yrs ago fell on my back-rib "out of place") - PSYCH Hx Psych Problems: Yes Hx Anxiety: Yes (no meds) - HEMATOLOGY/ONCOLOGY Hx Hematology/Oncology Disorders: No Family Medical History Any Significant Family History?: No Hx Heart Disease: Father Physical Exam - General General Appearance: Alert, Oriented x3, Cooperative, Mild distress - Head Head exam: Atraumatic - Eye Eye exam: Normal appearance, PERRL - ENT ENT exam: Normal exam, Mucous membranes moist, Normal external ear exam, Normal orophraynx - Neck Neck exam: Normal inspection, Full ROM. negative: Tenderness - Respiratory Respiratory exam: Decreased breath sounds. negative: Respiratory distress, Rhonchi, Wheezes - Cardiovascular Cardiovascular Exam: Regular rate, Normal rhythm, Normal heart sounds. negative : Tachycardia Peripheral Pulses: 2+: Radial (R), Radial (L) - GI/Abdominal GI/Abdominal exam: Soft, Normal bowel sounds. negative: Tenderness - Extremities Extremities exam: Normal inspection, Full ROM, Normal capillary refill. negative: Pedal edema, Tenderness - Back Back exam: Reports: Normal inspection. Denies: Vertebral tenderness - Neurological Neurological exam: Alert, Normal gait, Oriented X3 - Psychiatric Psychiatric exam: Normal affect, Normal mood - Skin Skin exam: Normal color. negative: Rash Course Vital Signs 05/30/18 10:23 Pulse Rate 67 Respiratory 20 Rate Blood Pressure 153/94 Pulse Ox 94 L - Reevaluation(s) Reevaluation #1: 05/30/18 10:35 Seen on arrival - Duoneb given. VSS. Very talkative without difficulty. Reevaluation #2: 05/30/18 11:08 Improved with treatment. Discussed neg XR and plan for home with prednisone taper and follow up. Will continue nebs at home. Medical Decision Making - Management Options MDM Management: No Additional Work-up Planned - Data Complexity MDM Data: Labs Ordered and/or Reviewed, X-Ray Ordered and/or Reviewed, Independent Visualization of Image, Tracing, or Specimen - Lab Data Result diagrams: 05/30/18 10:35 05/30/18 10:35 - Radiology Data Radiology results: Image reviewed -: Radiology Exam Interpreted by Myself Disposition Disposition: Discharge Clinical Impression: Dyspnea, COPD with acute exacerbation Condition: (2) Stable Instructions: COPD (Chronic Obstructive Pulmonary Disease) (ED) Additional Instructions: continue your nebulized treatments at home. return as needed to the ED. See your doctor in 2 -3 days. Prescriptions: Prednisone [Prednisone 20Mg] 20 mg PO DAILY 4 Days #6 tab Forms: Patient Portal Access Time of Disposition: 11:14 Quality - Blood Pressure Screening Does Patient Have Any of the Following: No Blood Pressure Classification: Hypertensive Reading Systolic Measurement: 153 Diastolic Measurement: 94
[2018-05-30 10:48] LABS: BASO % 0.2 % (0-6); EOS % 0.3 % (0-6); GRAN % 74.6 % (47-80); HEMATOCRIT 45.3 % (42.0-52.0); HEMOGLOBIN 14.9 gm/dl (14.0-18.0); MEAN CELL VOLUME 93.8 fl (81-97); MEAN CORPUSCULAR HEMOGLOBIN 30.8 pg (27-33); MEAN CORPUSCULAR HGB CONC 32.9 g/dl (32-36); MEAN PLATELET VOLUME 10.3 fl (7.4-10.4); MONO % 9.9 % (0-9); PLATELET COUNT 294 K/uL (130-400); RED BLOOD COUNT 4.83 M/uL (4.40-5.70); RED CELL DISTRIBUTION WIDTH 14.7 % (11.5-14.5); WHITE BLOOD COUNT W/O DIFF 10.1 K/uL (4.2-12.2)
[2018-05-30 11:08] LABS: BLOOD UREA NITROGEN 18 mg/dL (8-23); EST GLOMERULAR FILTRATION RATE > 60 mL/min
[2018-05-30 11:11] LABS: GLUCOSE,RANDOM 163 mg/dL (74-109)
[2018-05-30] MEDS ORDERED: ALBUTEROL SULFATE (0.083%) 2.5 MG/3 ML NEB INH ONE (11:25)
--- NOTE | 2018-05-31 13:25 | RADIOLOGY REPORT ---
DATE: 05/30/2018. EXAM: TWO-VIEW CHEST RADIOGRAPH. HISTORY: Difficulty breathing for a few months. History of coronary artery bypass graft and smoking. TECHNIQUE: Two views of the chest. COMPARISON: Chest radiograph dated 04/21/2018. FINDINGS: Cardiac silhouette is unchanged from prior study. Postoperative changes in the mediastinum are noted. Thoracic aortic calcifications. No focal pulmonary consolidation is seen. No pleural effusion or pneumothorax. IMPRESSION: NO ACUTE LUNG FINDINGS. JOB NUMBER: [id number] [facility]
== END 2018-05-30 11:43 | disposition home or self-care (01) ==
LOC: ER 10:22
DX: J44.1 Chronic obstructive pulmonary disease with (acute) exacerbation (principal); R06.02 Shortness of breath; I10 Essential (primary) hypertension; Z87.891 Personal history of nicotine dependence
CPT/HCPCS: 99284 ×2; 85025; 80048; 71046; 94640 ×2; J7512; J7613

== ENCOUNTER 2018-10-29 13:17 | Emergency (ER) | payer MEDICARE, BC ==
[2018-10-29 15:12] LABS: ABSOLUTE NEUTROPHIL COUNT 6.12; BASO % 0.3 % (0-6); EOS % 0.2 % (0-6); GRAN % 70.5 % (47-80); HEMATOCRIT 47.3 % (42.0-52.0); HEMOGLOBIN 15.4 gm/dl (14.0-18.0); LYMPH % 18.6 % (16-45); MEAN CELL VOLUME 92.2 fl (81-97); MEAN CORPUSCULAR HGB CONC 32.6 g/dl (32-36); MEAN PLATELET VOLUME 10.6 fl (7.4-10.4); MONO % 10.4 % (0-9); PLATELET COUNT 245 K/uL (130-400); RED BLOOD COUNT 5.13 M/uL (4.40-5.70); RED CELL DISTRIBUTION WIDTH 14.1 % (11.5-14.5); WHITE BLOOD COUNT W/O DIFF 8.7 K/uL (4.2-12.2)
[2018-10-29 15:18] LABS: BLOOD UREA NITROGEN 16 mg/dL (8-23); EST GLOMERULAR FILTRATION RATE > 60 mL/min
[2018-10-29 15:21] LABS: GLUCOSE,RANDOM 106 mg/dL (74-109)
[2018-10-29 15:35] LABS: THYROID STIMULATING HORMONE 1.79 uIU/mL (0.270-4.20)
--- NOTE | 2018-10-29 16:37 | Emergency Department Record ---
History of Present Illness - General Chief Complaint: Difficulty Breathing Stated Complaint: GOMEZ, Time Seen by Provider: 10/29/18 14:14 Source: Patient Mode of Arrival: Ambulatory Limitations: No limitations - History of Present Illness Initial Comments: pt feels like his airway is closing. no known exposures MD Complaint: Shortness of breath Onset/Timin -: Days(s) Quality: Aching Consistency: Constant Improves With: Nothing Worsens With: Nothing Known History Of: Asthma, COPD Associated Symptoms: Denies other symptoms - Related Data Home Medications Medication Instructions Recorded Confirmed Last Taken Formoterol Fumarate [Perforomist] 20 mcg IH BID 10/29/18 10/29/18 10/29/18 Allergies Allergy/AdvReac Type Severity Reaction Status Date / Time No Known Drug Allergies Allergy Verified 10/29/18 13:52 Travel Screening - Travel/Exposure Within Last 30 Days Have you traveled within the last 30 days?: No - Travel/Exposure Within Last Year Have you traveled outside the [place] in the last year?: No - Additonal Travel Details Have you been exposed to anyone with a communicable illness?: No - Travel Symptoms Symptom Screening: None Review of Systems Reviewed: No additional complaints except as noted below Constitutional: Reports: As per HPI. Denies: Chills, Fever, Malaise, Night sweats, Weakness, Weight change Eyes: Reports: As per HPI. Denies: Eye discharge, Eye pain, Photophobia, Vision change ENT: Reports: As per HPI. Denies: Congestion, Dental pain, Ear pain, Epistaxis, Hearing loss, Throat pain Respiratory: Reports: As per HPI. Denies: Cough, Dyspnea, Hemoptysis, Stridor, Wheezes Cardiovascular: Reports: As per HPI. Denies: Arrhythmia, Chest pain, Dyspnea on exertion, Edema, Murmurs, Orthopnea, Palpitations, Paroxysmal nocturnal dyspnea, Rheumatic Fever, Syncope Endocrine: Reports: As per HPI. Denies: Fatigue, Heat or cold intolerance, Polydipsia, Polyuria Gastrointestinal: Reports: As per HPI. Denies: Abdominal pain, Constipation, Diarrhea, Hematemesis, Hematochezia, Melena, Nausea, Vomiting Genitourinary: Reports: As per HPI. Denies: Dysuria, Frequency, Hematuria, Incontinence, Retention, Testicular pain, Testicular mass, Urgency Musculoskeletal: Reports: As per HPI. Denies: Arthralgia, Back pain, Gout, Joint swelling, Myalgia, Neck pain Skin: Reports: As per HPI. Denies: Bruising, Change in color, Change in hair/nails, Lesions, Pruritus, Rash Neurological: Reports: As per HPI. Denies: Abnormal gait, Confusion, Headache, Numbness, Paresthesias, Seizure, Tingling, Tremors, Vertigo, Weakness Psychiatric: Reports: As per HPI. Denies: Anxiety, Auditory hallucinations, Depression, Homicidal thoughts, Suicidal thoughts, Visual hallucinations Hematological/Lymphatic: Reports: As per HPI. Denies: Anemia, Blood Clots, Easy bleeding, Easy bruising, Swollen glands Past Medical History - SOCIAL HISTORY Smoking Status: Former smoker Alcohol Use: Rare Drug Use: None - RESPIRATORY Hx Respiratory Disorders: Yes Hx Asthma: Yes Hx Bronchitis: Yes Hx COPD: Yes Hx Pneumonia: Yes (long ago) - CARDIOVASCULAR Hx Cardio Disorders: Yes Hx Cardiac Cath: Yes 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 - NEURO Hx Neuro Disorders: No - GI Hx GI Disorders: Yes Hx Reflux: Yes - Hx Genitourinary Disorders: Yes Hx Kidney Stones: Yes (many) Hx Prostate Problems: Yes (on Flomax "as needed") Hx Renal Disease: No - ENDOCRINE Hx Endocrine Disorders: Yes Hx Thyroid Disease: Yes - MUSCULOSKELETAL Hx Musculoskeletal Disorders: Yes Hx Arthritis: Yes Hx Back Injury: Yes (10 yrs ago fell on my back-rib "out of place") - PSYCH Hx Psych Problems: Yes Hx Anxiety: Yes (no meds) - HEMATOLOGY/ONCOLOGY Hx Hematology/Oncology Disorders: No Family Medical History Any Significant Family History?: No Hx Heart Disease: Father Physical Exam - General General Appearance: Alert, Oriented x3, Cooperative, Mild distress - Head Head exam: Normal inspection - Eye Eye exam: Normal appearance, PERRL, EOMI Pupils: Normal accommodation - ENT ENT exam: Normal exam, Mucous membranes moist, Normal external ear exam, Normal orophraynx Ear exam: Normal external inspection. negative: External canal tenderness Nasal Exam: Normal inspection. negative: Discharge, Sinus tenderness Mouth exam: Normal external inspection, Tongue normal Teeth exam: Normal inspection. negative: Dental caries Throat exam: Normal inspection. negative: Tonsillar erythema, Tonsillar exudate - Neck Neck exam: Normal inspection, Full ROM. negative: Tenderness - Respiratory Respiratory exam: Normal lung sounds bilaterally. negative: Respiratory distress - Cardiovascular Cardiovascular Exam: Regular rate, Normal rhythm, Normal heart sounds - GI/Abdominal GI/Abdominal exam: Soft, Normal bowel sounds. negative: Tenderness - Rectal Rectal exam: Deferred - exam: Deferred - Extremities Extremities exam: Normal inspection, Full ROM, Normal capillary refill. negative: Tenderness - Back Back exam: Reports: Normal inspection, Full ROM. Denies: Muscle spasm, Rash noted, Tenderness - Neurological Neurological exam: Alert, CN II-XII intact, Normal gait, Oriented X3 - Psychiatric Psychiatric exam: Normal affect, Normal mood - Skin Skin exam: Dry, Intact, Normal color, Warm Course Vital Signs 10/29/18 13:39 Temperature 98.5 F Pulse Rate 72 Respiratory 18 Rate Blood Pressure 189/101 Pulse Ox 96 Medical Decision Making - Lab Data Result diagrams: 10/29/18 14:35 10/29/18 14:35 Lab Results 10/29/18 10/29/18 Range/Units 14:35 14:35 WBC 8.7 (4.2-12.2) K/uL RBC 5.13 (4.40-5.70) M/uL Hgb 15.4 (14.0-18.0) gm/dl Hct 47.3 (42.0-52.0) % MCV 92.2 (81-97) fl MCH 30.0 (27-33) pg MCHC 32.6 (32-36) g/dl RDW 14.1 (11.5-14.5) % Plt Count 245 (130-400) K/uL MPV 10.6 H (7.4-10.4) fl Gran % 70.5 (47-80) % Lymphocytes % 18.6 (16-45) % Monocytes % 10.4 H (0-9) % Eosinophils % 0.2 (0-6) % Basophils % 0.3 (0-6) % Absolute Neutrophils 6.12 Sodium 139 (136-145) mmol/L Potassium 3.9 (3.4-4.5) mmol/L Chloride 98 (98-107) mmol/L Carbon Dioxide 26.0 (22-29) mmol/L Anion Gap 15.0 (7-16) BUN 16 (8-23) mg/dL Creatinine 1.0 (0.7-1.2) mg/dL Estimated GFR > 60 mL/min Random Glucose 106 (74-109) mg/dL Calcium 9.7 (8.8-10.2) mg/dL TSH 1.79 (0.270-4.20) uIU/mL Disposition Disposition: Discharge Clinical Impression: Throat congestion Disposition: Home, Self-Care Condition: (1) Good Instructions: Dyspnea (ED) Additional Instructions: 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 return sooner if worse Forms: Patient Portal Access Quality - Quality Measures Quality Measures: N/A - Blood Pressure Screening Does Patient Have Any of the Following: Active Dx of HTN Blood Pressure Classification: Hypertensive Reading Systolic Measurement: 189 Diastolic Measurement: 101 Screening for High Blood Pressure: Patient Exclusion, Hx of HTN [G9744]
[2018-10-29] MEDS ORDERED: METHYLPREDNISOLONE PF 125MG/VIAL IVP ONE (16:44)
--- NOTE | 2018-10-30 20:17 | CT SCAN REPORT ---
EXAM: CT SCAN SOFT TISSUE NECK W CONTRAST HISTORY: DIFFICULTY IN BREATHING. TECHNIQUE: CT examination of the soft tissues of the neck with contrast. FINDINGS: The airway is preserved. Parapharyngeal soft tissues are unremarkable. Deep fat planes of the face are intact. There are no fluid collections. There is no adenopathy. There is moderate atherosclerosis of the proximal right internal carotid artery with a 30 to 40% stenosis. 40% stenosis of the proximal left internal carotid artery is also noted. The left vertebral artery is small. The paranasal sinuses are clear. Visualized skull base is unremarkable. IMPRESSION: NO ACUTE PROCESS IN THE NECK. JOB [facility]BER: [id number] [facility]
== END 2018-10-29 17:15 | disposition home or self-care (01) ==
LOC: ER 13:17
DX: R09.89 Other specified symptoms and signs involving the circulatory and respiratory systems (principal); R06.02 Shortness of breath; I10 Essential (primary) hypertension; J44.9 Chronic obstructive pulmonary disease, unspecified; Z87.891 Personal history of nicotine dependence
CPT/HCPCS: 99284 ×2; 96374; 85025; 80048; 84443; 70491; Q9967; J2930

== ENCOUNTER 2018-11-06 14:43 | Emergency (ER) | payer MEDICARE, BC ==
[2018-11-06] MEDS ORDERED: ASPIRIN 81 MG CHEWABLE TABLET PO ONE (15:00)
--- NOTE | 2018-11-06 15:03 | Emergency Department Record ---
History of Present Illness - General Chief Complaint: Chest Pain Stated Complaint: CHEST PAIN Time Seen by Provider: 11/06/18 14:57 Source: Patient, RN notes reviewed Mode of Arrival: EMS - History of Present Illness Initial Comments: chest pain started at 11:00 am today and went away [address] Lima and he came in to the hospital to see if he could have his heart cath moved up. Patient is scheduled for a heart cath in [address] Moreau at [facility] and he had a CABG three years ago. Stopped smoking in 1979. AAA repaired in [place]. 2017 with a sleeve. Complaint: Chest pain Onset/Timin -: Hour(s) Pain Location: Substernal Severity: Moderate Severity scale (1-10): 4 Quality: Dull Consistency: Intermittent Treatments Prior to Arrival: Aspirin (81 mg a day) - Related Data Allergies Allergy/AdvReac Type Severity Reaction Status Date / Time No Known Drug Allergies Allergy Verified 11/06/18 14:49 Review of Systems Reviewed: No additional complaints except as noted below Constitutional: Reports: As per HPI. Denies: Chills, Fever, Malaise, Night sweats, Weakness, Weight change Eyes: Reports: As per HPI. Denies: Eye discharge, Eye pain, Photophobia, Vision change ENT: Reports: As per HPI. Denies: Congestion, Dental pain, Ear pain, Epistaxis, Hearing loss, Throat pain Respiratory: Reports: As per HPI. Denies: Cough, Dyspnea, Hemoptysis, Stridor, Wheezes Cardiovascular: Reports: As per HPI, Chest pain. Denies: Arrhythmia, Dyspnea on exertion, Edema, Murmurs, Orthopnea, Palpitations, Paroxysmal nocturnal dyspnea, Rheumatic Fever, Syncope Endocrine: Reports: As per HPI. Denies: Fatigue, Heat or cold intolerance, Polydipsia, Polyuria Gastrointestinal: Reports: As per HPI. Denies: Abdominal pain, Constipation, Diarrhea, Hematemesis, Hematochezia, Melena, Nausea, Vomiting Genitourinary: Reports: As per HPI. Denies: Dysuria, Frequency, Hematuria, Incontinence, Retention, Testicular pain, Testicular mass, Urgency Musculoskeletal: Reports: As per HPI. Denies: Arthralgia, Back pain, Gout, Joint swelling, Myalgia, Neck pain Skin: Reports: As per HPI. Denies: Bruising, Change in color, Change in hair/nails, Lesions, Pruritus, Rash Neurological: Reports: As per HPI. Denies: Abnormal gait, Confusion, Headache, Numbness, Paresthesias, Seizure, Tingling, Tremors, Vertigo, Weakness Psychiatric: Reports: As per HPI. Denies: Anxiety, Auditory hallucinations, Depression, Homicidal thoughts, Suicidal thoughts, Visual hallucinations Hematological/Lymphatic: Reports: As per HPI. 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 - NEURO Hx Neuro Disorders: No - GI Hx GI Disorders: Yes Hx Reflux: Yes - Hx Genitourinary Disorders: Yes Hx Kidney Stones: Yes (many) Hx Prostate Problems: Yes (on Flomax "as needed") Hx Renal Disease: No - ENDOCRINE Hx Endocrine Disorders: Yes Hx Thyroid Disease: Yes - MUSCULOSKELETAL Hx Musculoskeletal Disorders: Yes Hx Arthritis: Yes Hx Back Injury: Yes (10 yrs ago fell on my back-rib "out of place") - PSYCH Hx Psych Problems: Yes Hx Anxiety: Yes (no meds) - HEMATOLOGY/ONCOLOGY Hx Hematology/Oncology Disorders: No Family Medical History Hx Heart Disease: Father Physical Exam - General General Appearance: Alert, Oriented x3, Cooperative, No acute distress - Head Head exam: Normal inspection - Eye Eye exam: Normal appearance, PERRL Pupils: Normal accommodation - ENT ENT exam: Normal exam, Mucous membranes moist, Normal external ear exam, Normal orophraynx, TM's normal bilaterally Ear exam: Normal external inspection. negative: External canal tenderness Nasal Exam: Normal inspection. negative: Discharge, Sinus tenderness Mouth exam: Normal external inspection, Tongue normal Teeth exam: Normal inspection. negative: Dental caries Throat exam: Normal inspection. negative: Tonsillar erythema, Tonsillar exudate - Neck Neck exam: Normal inspection, Full ROM. negative: Tenderness - Respiratory Respiratory exam: Normal lung sounds bilaterally. negative: Respiratory distress - Cardiovascular Cardiovascular Exam: Regular rate, Normal rhythm, Normal heart sounds - GI/Abdominal GI/Abdominal exam: Soft, Normal bowel sounds. negative: Tenderness - Rectal Rectal exam: Deferred - exam: Deferred - Extremities Extremities exam: Normal inspection, Full ROM, Normal capillary refill. negative: Tenderness - Back Back exam: Reports: Normal inspection, Full ROM. Denies: Muscle spasm, Rash noted, Tenderness - Neurological Neurological exam: Alert, Normal gait, Oriented X3, Reflexes normal - Psychiatric Psychiatric exam: Normal affect, Normal mood - Skin Skin exam: Dry, Intact, Normal color, Warm Course Vital Signs 11/06/18 14:54 Temperature 97.6 F Pulse Rate [ 77 Left] Respiratory 21 Rate Blood Pressure 136/61 [Right Arm] Pulse Ox 94 L discussed [address] Moreau and will transfer to [facility] Medical Decision Making - Data Complexity MDM Data: Labs Ordered and/or Reviewed (trop neg), EKG Ordered and/or Reviewed (EKG NSR with t wave inversion V1,V2,v3 ) - Lab Data Result diagrams: 11/06/18 14:52 11/06/18 14:52 Disposition Clinical Impression: Chest pain Qualifiers: Chest pain type: chest pain due to myocardial ischemia Ischemic chest pain type: unspecified angina pectoris type Qualified Code(s): I25.9 - Chronic isc hemic heart disease, unspecified CAD (coronary artery disease) Qualifiers: Coronary Disease-Associated Artery/Lesion type: bypass graft, autologous artery Associated angina: with unspecified angina Qualified Code(s): I25.729 - Atherosclerosis of autologous artery coronary artery bypass graft(s) with unspecified angina pectoris Disposition: Acute Care Hospital Transfer Condition: (2) Stable Instructions: Chest Pain (ED) Forms: Patient Portal Access Time of Disposition: 16:10 Quality - Quality Measures Quality Measures: N/A - Blood Pressure Screening Does Patient Have Any of the Following: No, Active Dx of HTN Blood Pressure Classification: Pre-Hypertensive BP Reading Systolic Measurement: 136 Diastolic Measurement: 61 Screening for High Blood Pressure: Patient Exclusion, Hx of HTN [G9744]
[2018-11-06 15:34] LABS: ABSOLUTE NEUTROPHIL COUNT 7.65; BASO % 0.3 % (0-6); EOS % 0.4 % (0-6); GRAN % 71.5 % (47-80); HEMATOCRIT 48.5 % (42.0-52.0); HEMOGLOBIN 15.8 gm/dl (14.0-18.0); LYMPH % 17.9 % (16-45); MEAN CELL VOLUME 92.2 fl (81-97); MEAN CORPUSCULAR HGB CONC 32.6 g/dl (32-36); MEAN PLATELET VOLUME 10.6 fl (7.4-10.4); MONO % 9.9 % (0-9); PLATELET COUNT 284 K/uL (130-400); RED BLOOD COUNT 5.26 M/uL (4.40-5.70); RED CELL DISTRIBUTION WIDTH 14.4 % (11.5-14.5); WHITE BLOOD COUNT W/O DIFF 10.7 K/uL (4.2-12.2)
[2018-11-06 15:46] LABS: BLOOD UREA NITROGEN 21 mg/dL (8-23); CREATININE 1.2 mg/dL (0.7-1.2); EST GLOMERULAR FILTRATION RATE > 60 mL/min
[2018-11-06 15:49] LABS: GLUCOSE,RANDOM 174 mg/dL (74-109)
== END 2018-11-06 16:59 | disposition short-term general hospital (02) ==
LOC: ER 14:43
DX: I25.729 Atherosclerosis of autologous artery coronary artery bypass graft(s) with unspecified angina pectoris (principal); I10 Essential (primary) hypertension
CPT/HCPCS: 80048; 84484; 85025; 85730; 93005; 93010; 93041; 99285

== ENCOUNTER 2019-02-27 05:58 | Emergency (ER) | payer MEDICARE, BC ==
[2019-02-27] MEDS ORDERED: IPRATROPIUM/ALBUTEROL (0.5MG/3MG) NEB INH ONE (06:20)
[2019-02-27] MEDS: PREDNISONE 20 MG TAB PO ONE (06:23)
--- NOTE | 2019-02-27 06:28 | Emergency Department Record ---
History of Present Illness - General Chief complaint: ENT Stated complaint: THROAT SWELLING Time Seen by Provider: 02/27/19 06:10 Source: Patient Mode of Arrival: Ambulatory Limitations: No limitations - History of Present Illness Initial comments: The patient is here due to a 3 hour hx of feeling like his throat is closing. The feeling started at 3am today. He denies any SOB, CP, or back pain but just feels like his "voice box" is swollen. The patient has had this many times in the past and even had a neck CT in October of this year for the same issues which came back neg. The patient states last month he did see an ENT who did a scope on his throat and told him he was having reflux that was irritation his vocal cords which was giving him this feeling. The patient denies any hoarse voice or pain with swallowing. MD complaint: Other Onset/Timin -: Hour(s) Consistency: Constant Improves with: None Worsens with: None Associated Symptoms: Other - Related Data Previous Rx's Medication Instructions Recorded Prednisone [Prednisone 20Mg] 40 mg PO DAILY #8 tab 02/27/19 Allergies Allergy/AdvReac Type Severity Reaction Status Date / Time No Known Drug Allergies Allergy Verified 11/06/18 14:49 Travel Screening - Travel/Exposure Within Last 30 Days Have you traveled within the last 30 days?: No Review of Systems Constitutional: Denies: Chills, Fever Eyes: Denies: Eye discharge ENT: Denies: Congestion Respiratory: Denies: Cough, Dyspnea Cardiovascular: Denies: Arrhythmia, Chest pain, Dyspnea on exertion Endocrine: Denies: Fatigue Gastrointestinal: Denies: Nausea Genitourinary: Denies: Dysuria Musculoskeletal: Denies: Arthralgia Past Medical History - SOCIAL HISTORY Smoking Status: Former smoker - RESPIRATORY Hx Respiratory Disorders: Yes Hx Asthma: Yes Hx Bronchitis: Yes Hx COPD: Yes Hx Pneumonia: Yes (long ago) - CARDIOVASCULAR Hx Cardio Disorders: Yes Hx Cardiac Cath: Yes 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 - NEURO Hx Neuro Disorders: No - GI Hx GI Disorders: Yes Hx Reflux: Yes - Hx Genitourinary Disorders: Yes Hx Kidney Stones: Yes (many) Hx Prostate Problems: Yes (on Flomax "as needed") Hx Renal Disease: No - ENDOCRINE Hx Endocrine Disorders: Yes Hx Thyroid Disease: Yes - MUSCULOSKELETAL Hx Musculoskeletal Disorders: Yes Hx Arthritis: Yes Hx Back Injury: Yes (10 yrs ago fell on my back-rib "out of place") - PSYCH Hx Psych Problems: Yes Hx Anxiety: Yes (no meds) - HEMATOLOGY/ONCOLOGY Hx Hematology/Oncology Disorders: No Family Medical History Any Significant Family History?: Yes Hx Heart Disease: Father Physical Exam - General General Appearance: Alert, Oriented x3, Cooperative, No acute distress (The patient is speaking in full sentences without any difficulty and with a normal voice.) - Head Head exam: Atraumatic, Normocephalic, Normal inspection - Eye Eye exam: Normal appearance - ENT Mouth exam: Normal external inspection, Tongue normal. negative: Drooling, Muffled voice, Tongue elevation, Trismus Throat exam: Other (The patient's uvula may be very slightly swollen.). negative: Normal inspection, Tonsillar erythema, Tonsillomegaly, Tonsillar exudate - Neck Neck exam: Normal inspection, Full ROM. negative: Lymphadenopathy, Meningismus, Tenderness - Respiratory Respiratory exam: Normal lung sounds bilaterally. negative: Respiratory distress - Cardiovascular Cardiovascular Exam: Regular rate, Normal rhythm, Normal heart sounds - GI/Abdominal GI/Abdominal exam: Soft, Normal bowel sounds. negative: Tenderness - Extremities Extremities exam: Normal inspection, Full ROM, Normal capillary refill. negative: Tenderness - Neurological Neurological exam: Alert, Normal gait. negative: Abnormal gait, Motor sensory deficit - Psychiatric Psychiatric exam: negative: Anxious Course Vital Signs 02/27/19 06:03 Temperature 97.6 F Pulse Rate [ 104 H Pulse Ox Probe] Respiratory 24 Rate Blood Pressure 191/101 [Left Arm] Pulse Ox 93 L - Reevaluation(s) Reevaluation #1: The patient is feeling better at this time. He is again speaking in full sentences with no hoarseness or voice changes or pain. I did discuss the normal EKG and the need to continue the Prednisone. He is to see his PCP for recheck next week if not better and to return to the ER for any worsening symptoms. 02/27/19 06:45 Medical Decision Making - Data Complexity MDM Data: EKG Ordered and/or Reviewed - EKG Data -: EKG Interpreted by Me EKG: No Acute Changes, Unchanged From Previous (Neg for ischemia.) Disposition Disposition: Discharge Clinical Impression: Sensation of swollen throat Disposition: Home, Self-Care Condition: (2) Stable Instructions: Dysphagia (ED) Additional Instructions: Please continue your regular medicines and continue the Prednisone tomorrow as directed. Please see your doctor next week for recheck if not better and return to the ER for any worsening symptoms. Prescriptions: Prednisone [Prednisone 20Mg] 40 mg PO DAILY #8 tab Forms: Patient Portal Access Time of Disposition: 06:49 Quality - Quality Measures Quality Measures: N/A - Blood Pressure Screening View Details: Yes Does Patient Have Any of the Following: Active Dx of HTN Blood Pressure Classification: Pre-Hypertensive BP Reading Systolic Measurement: 156 Diastolic Measurement: 88 Screening for High Blood Pressure: Patient Exclusion, Hx of HTN [G9744]
[2019-02-27] MEDS ORDERED: IPRATROPIUM/ALBUTEROL (0.5MG/3MG) NEB INH SCH (10:00)
== END 2019-02-27 06:53 | disposition home or self-care (01) ==
LOC: ER 05:58
DX: R22.1 Localized swelling, mass and lump, neck (principal); J44.9 Chronic obstructive pulmonary disease, unspecified; I10 Essential (primary) hypertension; Z87.891 Personal history of nicotine dependence
CPT/HCPCS: 93005; 93010; 94640; 99284; J7512